=== PATIENT | female | born 1945 | race Caucasian/White ===

== ENCOUNTER 2020-09-29 15:38 | Outpatient (REF) | payer MEDICARE, SELFPAY ==
--- NOTE | 2020-09-29 | XR_ITS ---
EXAMINATION: XR FOOT, LEFT CLINICAL INFORMATION: Pain COMPARISON: None TECHNIQUE: AP, lateral, and oblique views of the left foot. FINDINGS: Bone alignment is normal. No fracture or dislocation is seen. The joint spaces are normal. There are small calcaneal spurs. XR/XR foot LT min 3V IMPRESSION: Small calcaneal spurs.
[2020-09-29 18:47] LABS: Alanine Aminotransferase 12 U/L (0-31); Albumin Level 4.5 g/dL (3.5-5.0); Alkaline Phosphatase 84 U/L (39-117); Anion Gap 17 (12-20); Aspartate Amino Transferase 18 U/L (5-31); Bilirubin Direct 0.7 mg/dL (0.0-0.5); Bilirubin Total 1.8 mg/dL (0.0-1.0); Blood Urea Nitrogen 21 mg/dL (9-16); Calcium 9.5 mg/dL (8.4-10.2); Carbon Dioxide 27 mmol/L (22-29); Chloride 101 mmol/L (96-108); Cholesterol 207 mg/dL; Estimated Glomerular Filt Rate 52; Glucose Random 100 mg/dL (60-115); HDL Cholesterol 60 mg/dL; LDL Cholesterol Calculated 124 mg/dl; Potassium 3.7 mmol/l (3.3-5.1); Sodium 141 mmol/L (135-145); Total Protein 7.2 g/dL (6.5-8.0); Triglycerides 116 mg/dL
[2020-09-29 19:09] LABS: Free T4 (Free Thyroxine) 1.42 ng/dL (0.71-1.85); Thyroid Stimulating Hormone 0.48 uIU/mL (0.32-4.0)
== END 2020-09-29 15:39 | disposition home or self-care (01) ==
LOC: HO.LAB 15:38
PROVIDERS: PCP Student in an Organized Health Care Education/Training Program; Visit Provider Student in an Organized Health Care Education/Training Program
DX: E03.9 Hypothyroidism, unspecified (principal); M79.672 Pain in left foot
CPT/HCPCS: 36415; 73630; 80048; 80061; 80076; 82306; 84439; 84443

== ENCOUNTER → 2020-12-04 14:35 | Outpatient (BNVA) | payer MEDICARE, SELFPAY | PROVIDERS: PCP Student in an Organized Health Care Education/Training Program; Visit Provider Internal Medicine Cardiovascular Disease | DX: Z01.810 Encounter for preprocedural cardiovascular examination (principal); R94.31 Abnormal electrocardiogram [ECG] [EKG] | CPT/HCPCS: 93005; 99202 ==

== ENCOUNTER → 2021-02-05 14:41 | Outpatient (REF) | payer MEDICARE, SELFPAY ==
--- NOTE | 2021-02-05 14:46 | CA_ITS ---
Transthoracic Echocardiogram Patient (Last, First, Middle): Yue Osei A Gender: Female Date of : 1945 Age: 75 Procedure Date: 02/05/2021 Procedure Type: Transthoracic Echocardiogram Location: OP Height: 160.02 cm Weight: 65.77 kg BSA: 1.69 m2 Heart Rate: bpm BP: 130 / 74 mmHg Import Customer Service Manager: TRN Referring MD: Mac Mera MD Symptoms: R94.31 - Abnormal electrocardiogram [ECG] [EKG] Study Quality: Technically Difficult ECG Rhythm: Sinus Conclusions: - Due to poor endocardial definition, difficult to assess LVEF. Possibly about 50%. - No obvious valvular pathology seen on this study. Findings Left Ventricle Normal left ventricular cavity size. There is normal left ventricular wall thickness. Regional wall motion abnormalities can not be excluded due to suboptimal endocardial definition. E/E prime ratio is <8, consistent with normal filling pressures. Evidence suggests grade I (mild) diastolic dysfunction. Due to poor endocardial definition, difficult to assess LVEF. Possibly about 50%. Right Ventricle Normal right ventricular cavity size and systolic function. Atria The left atrium is mildly dilated. The right atrium is normal in size. Aortic Valve There is a normal trileaflet aortic valve. There is no aortic valve stenosis. There is no aortic valve regurgitation. Mitral Valve There is mild mitral annular calcification. There is trace mitral valve regurgitation. There is no mitral valve stenosis. Pulmonic Valve The pulmonic valve was not well visualized. Tricuspid Valve Normal tricuspid valve structure. There is trace tricuspid valve regurgitation. The pulmonary artery systolic pressure is normal. Great Vessels The aortic annulus, sinuses of valsalva, and asc aorta are normal in size. Venous The inferior vena cava is normal in size and collapses greater than 50% with inspiration. Pericardium/Pleural There is no evidence of pericardial effusion. Prior Study Comparison No significant change compared to prior study dated: 12/06/2013. LVEF was similar. Recommendations, Care & Conclusions No obvious valvular pathology seen on this study. Measurements M-Mode Liner Measurements Normals - Women/Men AOV Cusps: 1.70 1.5-2.6 cm/m2 2D Linear Measurements IVSd: 0.88 0.6-0.9/0.6-1.0 cm LVIDd: 4.68 3.9-5.3/4.2-5.9 cm LVIDd Index: 2.77 2.4-3.2/2.2-3.1 cm/m2 LVIDs: 2.96 2.0-3.6 cm LVPWd: 0.89 0.7-1.1 cm Ao Root: 3.40 2.1-3.5 cm LA Diam: 2.60 2.7-3.8/3.0-4.0 cm LAIDs Index: 1.54 1.5-2.3 cm/m2 LV Mass: 172.47 67-162/88-224 g LV Mass Index: 102.05 43-95/49-115 g/m2 LVOT Diam: 2.20 3.0+(-)1.3 cm Mitral Valve MV Pk E: 0.53 MV PK A: 0.79 MV Decel Time: 273.00 E/A: 0.70 E'Lateral: 6.64 E'Medial: 5.11 E/E' Med: 10.30 E/E' Lat: 7.90 PHT: 80.00 MVA PHT: 2.75 Decel [place]: 1.93 Aortic Valve AoV Pk Dre: 1.36 AoV Mn Dre: 1.06 AoV VTI: 0.30 AoV Pk Grad: 7.00 Aov Mn Grad: 5.00 MARY Cont.VTI: 1.67 LVOT LVOT Pk Dre: 0.65 LVOT Mn Dre: 0.45 LVOT VTI: 0.13 LVOT Pk Grad: 2.00 LVOT Mn Grad: 1.00 LVOT Diam: 2.20 LVOT Area: 3.80 Diastolic Function MV Pk E: 0.53 MV Pk A: 0.79 E/A: 0.70 E'Medial: 5.11 E/E' Med: 10.30 E' Laterial: 6.64 E/E' Lat: 7.90 Tricuspid Valve TR Pk Dre: 1.87 TR Pk Grad: 14.00 RA Press: 3.00 RVSP: 17.00 Great Vessels Aorta Ao Root-2D: 3.40 2.0-3.7 cm Ao Asc: 3.60 2.1-3.4 cm Updated in Other Vendor System with Status of Final Raad Casiano MD electronically signed on 02/07/2021 11:57:54 AM with status of Final
== END ==
LOC: HO.CARD 14:41
PROVIDERS: PCP Student in an Organized Health Care Education/Training Program; Visit Provider Internal Medicine Cardiovascular Disease
DX: Z01.810 Encounter for preprocedural cardiovascular examination (principal); R94.31 Abnormal electrocardiogram [ECG] [EKG]
CPT/HCPCS: 93306

== ENCOUNTER 2023-02-17 10:48 | Outpatient (REF) | payer MEDICARE, SELFPAY ==
--- NOTE | ~2023-02-17 | XR_ITS ---
EXAMINATION: XR KNEE, LEFT CLINICAL INFORMATION: Pain COMPARISON: None available. TECHNIQUE: Two views of the left knee. FINDINGS: The bones are osteopenic. Bone alignment is normal. No fracture or dislocation. Arthritis at the patellofemoral joint. No significant joint effusion. XR/XR knee LT 2V IMPRESSION: Osteopenia and arthritis at the patellofemoral joint.
== END 2023-02-17 10:49 | disposition home or self-care (01) ==
LOC: HO.XRAY 10:48
PROVIDERS: PCP Student in an Organized Health Care Education/Training Program; Visit Provider Student in an Organized Health Care Education/Training Program
DX: M25.562 Pain in left knee (principal); G89.29 Other chronic pain
CPT/HCPCS: 73560

== ENCOUNTER 2023-08-23 10:39 | Outpatient (REF) | payer MEDICARE, SELFPAY ==
--- NOTE | ~2023-08-23 | XR_ITS ---
EXAMINATION: XR KNEE, LEFT CLINICAL INFORMATION: Pain. COMPARISON: Radiograph left knee 02/17/2023. TECHNIQUE: Two views of the left knee. FINDINGS: Decreased bone mineralization. No acute fractures or subluxation. Mild to moderate osteoarthritis of the medial and patellofemoral compartments with joint space narrowing and minimal subcortical sclerosis. No significant osteophytes. No chondrocalcinosis. No osseous erosions. No significant joint effusion. XR/XR knee LT 2V IMPRESSION: 1. No acute fractures or subluxation. 2. Mild to moderate osteoarthritis of the medial and patellofemoral compartments.
[2023-08-23 11:09] LABS: MANUAL DIFF FLAG NO
[2023-08-23 11:46] LABS: Basophils Percent Auto 0.6 % (0-2); Eosinophils Absolute Auto 0.4 X10*3/uL (0.0-0.4); Eosinophils Percent Auto 6.2 % (0-4); Hematocrit 36.1 % (37.0-47.0); Imm Gran Abs Auto 0.02 X10*3/uL (0.00-0.03); Imm Gran Pct Auto 0.3 % (0.0-0.4); Lymphocytes Absolute Auto 2.2 X10*3/uL (1.2-4.9); Lymphocytes Percent Auto 33.9 % (20-40); Mean Corpuscular HGB Conc 33.2 g/dl (31.0-35.0); Mean Corpuscular Hemoglobin 30.9 pg (27.0-33.0); Mean Platelet Volume 9.9 fL (9.4-12.3); Monocytes Absolute Auto 0.4 X10*3/uL (0.1-1.2); Monocytes Percent Auto 6.6 % (2-11); Neutrophils Absolute Auto 3.3 x10*3/uL (2.0-8.3); Neutrophils Percent Auto 52.4 % (45-73); Platelet Count 235 X10*3/uL (160-400); Red Blood Count 3.88 X10*6/uL (4.20-5.50); Red Cell Distribution Width 12.6 % (11.0-16.0); White Blood Count 6.3 X10*3/uL (4.8-10.8)
[2023-08-23 12:17] LABS: Alanine Aminotransferase 12 U/L (0-31); Albumin Level 4.2 g/dL (3.5-5.0); Alkaline Phosphatase 87 U/L (39-117); Anion Gap 11 (12-20); Aspartate Amino Transferase 22 U/L (5-31); Bilirubin Total 1.5 mg/dL (0.0-1.0); Blood Urea Nitrogen 16 mg/dL (9-16); C Reactive Protein < 0.10 mg/dL (< or = 0.50); Calcium 9.6 mg/dL (8.4-10.2); Carbon Dioxide 30 mmol/L (22-29); Chloride 104 mmol/L (96-108); Estimated Glomerular Filt Rate > 60; Glucose Random 94 mg/dL (60-115); Iron 57 mcg/dL (30-160); Percent Iron Saturation 26 % (15-50); Potassium 3.6 mmol/L (3.3-5.1); Sodium 141 mmol/L (135-145); Total Iron Binding Capacity 221 mcg/dL (228-428); Total Protein 7.1 g/dL (6.5-8.0); Unsaturated Iron Binding 164 ug/dL
[2023-08-23 12:24] LABS: Erythrocyte Sedimentation Rate 11 MM/HR (0-20)
[2023-08-23 12:36] LABS: Ferritin 213 ng/mL (10-250); TSH reflex Free T4 1.75 uIU/mL (0.32-4.0); Vitamin D 25-OH Total 62.3 ng/mL (>30)
[2023-08-23 12:44] LABS: Folate 17.2 ng/mL (> or = 4.0); Vitamin B12 612 pg/mL (200-900)
[2023-08-24 08:41] LABS: HIV AB/AG Nonreactive (Nonreactive); HIV Num 1 0.05 S/CO (0.00-0.99)
== END 2023-08-23 10:40 | disposition home or self-care (01) ==
LOC: HO.XRAY 10:39
PROVIDERS: PCP Student in an Organized Health Care Education/Training Program; Visit Provider Family Medicine
DX: M17.12 Unilateral primary osteoarthritis, left knee (principal); R53.83 Other fatigue
CPT/HCPCS: 36415; 73560; 80053; 82306; 82607; 82728; 82746; 83540; 84443; 85025; 85652; 86140; 87389

== ENCOUNTER 2023-09-26 10:45 | Outpatient (AMB) | payer MEDICARE, SELFPAY ==
--- NOTE | 2023-09-26 11:02 | A.OFFVIS_ITS ---
Intake Intake Visit Reasons: ALLERGIST-arthritis of left knee Intake Note: Yue is a 78 year old female who presents today as a new patient with complaints of left knee pain. Patient has had worsening left knee pain for quite some time now, her pain has impacted her daily activity. She has difficulty ambulating, uses a cane but needs further assistance. PCP note states that a script was sent for a wheeled walker, but patient has not heard from anyone for the walker yet. Allergies acetaminophen [From Percocet] Allergy (Mild, Unverified 05/29/20 16:11) NAUSEA oxycodone [From Percocet] Allergy (Mild, Unverified 05/29/20 16:11) NAUSEA HPI ALLERGIST-arthritis of left knee HPI Details Yue is a 78 year old woman who presents to discuss her left knee OA. She complains of pain with daily activity, which is limiting her function & ADLs. Her pain has been worsening for several months now. She walks using a cane but feels she needs further assistance. She takes Ibuprofen for pain relief, which is somewhat helpful. She has difficulty standing straight and cannot complete her ADLs. She is having a very hard time with all activities. She thinks it is her left knee but also has had complaints of left hip pain. [facility] Surgical History (Updated 12/04/20 @ 14:47 by TEAGAN Unger) History of ankle surgery Social History (Updated 12/04/20 @ 14:48 by TEAGAN Unger) Alcohol intake: current Alcohol type: hard liquor Review of Systems Const All systems reviewed & are unremarkable except as noted in HPI and below Physical Exam Const General: no acute distress, alert and awake Orientation/consciousness: patient oriented x3 HEENT Head: Yes normocephalic and Yes atraumatic Eyes EOM: EOMs intact bilaterally Resp Effort & Inspection: normal respiratory effort and able to speak in complete sentences Cardio Jugular venous distension: no JVD Skin General skin exam: turgor normal Rashes: no rashes Neuro General: patient oriented x3 Extrem Other: Left knee with mild medial compartment TTP unsteady gait She cannot stand straight and on exam her hip ROM is severely limited and attempts at internal rotation are painful Psych Appearance: grossly normal Affect: normal affect Attitude: cooperative Results Reviewed Results Reviewed: I personally reviewed relevant radiographs. Mild-moderate left knee varus pattern OA Severe bilateral hip OA Assessment & Plan Assessment & Plan (1) Arthritis of left knee: Code(s): M17.12 - Unilateral primary osteoarthritis, left knee (2) Bilateral hip joint arthritis: Code(s): M16.0 - Bilateral primary osteoarthritis of hip Plan: This is a 78 yo F with severe bilateral hip OA. She has some left knee pain as well but her primary problem is severe hip OA. This is limiting all her activity and her quality of life is adversely affected. The standard and reasonable treatment is hip replacement. I am not sure Yue is a reliable historian and it is difficult to accurately assess if she understands what I am recommending. Furthermore her medical history, at least what I can see in the chart, is limited. She had an EKG after a fall wityh an echo in 2020 but her chart is otherwise unhelpful. I will reach out to the [facility] and to her PCP. I think she would benefit tremendously from MAXIMUS but will need more clinical infomation prior to proceeding forward. In the meantime, we will work with her to get her a walker. Plan Scribed for Scooby Marina MD by Sky Jenkins, medical billing associate, on 09/26/23 at 11:10 AM, EST. Orders: Orders XR knee LT 2V 09/26/23 M25.569 - Pain in unspecified knee XR pelvis 1-2V 09/26/23 M25.559 - Pain in unspecified hip XR knee standing BI 09/26/23 M25.569 - Pain in unspecified knee Medications: New [front wheeled walker] As directed 1 ea 0RF Coding Level of Care Code New Pt Level 4 (22221) Diagnoses Arthritis of left knee M17.12 Bilateral hip joint arthritis M16.0
== END 2023-09-26 11:59 | disposition home or self-care (01) ==
PROVIDERS: PCP Student in an Organized Health Care Education/Training Program; Visit Provider Orthopaedic Surgery
DX: M17.12 Unilateral primary osteoarthritis, left knee (principal); M16.0 Bilateral primary osteoarthritis of hip
CPT/HCPCS: 99204

== ENCOUNTER 2023-09-26 11:24 | Outpatient (REF) | payer MEDICARE, SELFPAY ==
--- NOTE | ~2023-09-26 | XR_ITS ---
EXAMINATION: XR KNEE STANDING BILATERAL, XR KNEE, LEFT CLINICAL INFORMATION: Reason for Exam PAIN COMPARISON: Knee radiographs 08/23/2023 TECHNIQUE: 1 view of the bilateral knees standing and 2 views of the left knee FINDINGS: RIGHT KNEE: No acute fracture or dislocation. Ztlb-ew-fznzrmyd degenerative changes of the knee with borderline loss of medial compartment joint space. Question of a small 3 mm loose body in the medial compartment. Soft tissues are unremarkable. LEFT KNEE: No acute fracture or dislocation. Advanced osteoarthritis of the knee worst involving the patellofemoral compartment where there is complete loss of joint space. No joint effusion. Soft tissues are unremarkable. XR/XR knee LT 2V IMPRESSION: 1. Advanced osteoarthritis of the left knee worst involving the patellofemoral compartment where there is complete loss of joint space. 2. Nija-yc-xzmfjkoj degenerative changes of the right knee with borderline loss of medial compartment joint space. Question of a small 3 mm loose body in the medial compartment.
--- NOTE | ~2023-09-26 | XR_ITS ---
EXAMINATION: XR PELVIS CLINICAL INFORMATION: Hip pain COMPARISON: None available. TECHNIQUE: AP view of the pelvis. FINDINGS: Advanced bilateral osteoarthritis of the hips with obliteration of the joint space, sclerosis and subchondral cyst formation. There is femoral head remodeling, right greater than left. There is underlying demineralization. Degenerative changes lower lumbar spine. L5 pedicles are obscured. SI joints within normal limits. Mild fecal impaction. Phleboliths and vascular calcifications. XR/XR pelvis 1-2V IMPRESSION: Advanced bilateral hip degenerative type changes.
--- NOTE | ~2023-09-26 | XR_ITS ---
EXAMINATION: XR KNEE STANDING BILATERAL, XR KNEE, LEFT CLINICAL INFORMATION: Reason for Exam PAIN COMPARISON: Knee radiographs 08/23/2023 TECHNIQUE: 1 view of the bilateral knees standing and 2 views of the left knee FINDINGS: RIGHT KNEE: No acute fracture or dislocation. Qnok-jy-wnrjyrzu degenerative changes of the knee with borderline loss of medial compartment joint space. Question of a small 3 mm loose body in the medial compartment. Soft tissues are unremarkable. LEFT KNEE: No acute fracture or dislocation. Advanced osteoarthritis of the knee worst involving the patellofemoral compartment where there is complete loss of joint space. No joint effusion. Soft tissues are unremarkable. XR/XR knee standing BI IMPRESSION: 1. Advanced osteoarthritis of the left knee worst involving the patellofemoral compartment where there is complete loss of joint space. 2. Wicy-sc-sutnxmai degenerative changes of the right knee with borderline loss of medial compartment joint space. Question of a small 3 mm loose body in the medial compartment.
== END 2023-09-26 11:25 | disposition home or self-care (01) ==
LOC: HO.HOSX 11:24
PROVIDERS: Visit Provider Orthopaedic Surgery
DX: M17.12 Unilateral primary osteoarthritis, left knee (principal); M16.0 Bilateral primary osteoarthritis of hip
CPT/HCPCS: 72170; 73560; 73562; 73565; 99202

== ENCOUNTER → 2023-11-14 12:49 | Outpatient (BNVA) | payer MEDICARE, SELFPAY | PROVIDERS: PCP Student in an Organized Health Care Education/Training Program; Visit Provider Orthopaedic Surgery ==

== ENCOUNTER 2023-11-25 13:48 | Outpatient (AMB) | payer MEDICARE, SELFPAY ==
[2023-11-25 14:00] VITALS: BP 116/62; PULSE 83; BMI 24.6
--- NOTE | 2023-11-25 14:00 | A.OFFVIS_ITS ---
Intake Vital Signs 11/25/23 14:00 Height 5 ft 1 in Weight 130 lb BMI 24.6 BP 116/62 Blood Pressure Location Lt brachial Position Sitting Pulse 83 Pulse Source Monitor Intake Visit Reasons: Pre-op/L MAXIMUS with Dr. Marina 12/20 Intake Note: PT feels good PT is here Pre-op/L MAXIMUS Allergies acetaminophen [From Percocet] Allergy (Mild, Unverified 05/29/20 16:11) NAUSEA oxycodone [From Percocet] Allergy (Mild, Unverified 05/29/20 16:11) NAUSEA HPI HPI Comments History of Present Illness Details 78-year-old female presents today for a pre-op for a left MAXIMUS with Dr. Marina on 12/21/23. She denies any chest pains, shortness of breath, dizziness., palpitations. She is mostly sedentary as she walks with a walker and has been having knee/hip pain. [facility] Surgical History History of ankle surgery Social History Alcohol intake: current Alcohol type: hard liquor Review of Systems Const Denies weakness ENT Denies dizziness Card Denies chest pain, Denies chest pain with activity, Denies syncope, Denies rapid heart rate, Denies pedal edema, Denies edema, Denies leg edema, Denies lightheadedness, Denies palpitations, Denies dyspnea, Denies dyspnea on exertion and Denies orthopnea Resp Denies cough, Denies dyspnea and Denies dyspnea on exertion GI Denies hematochezia and Denies change in stool character Musc Denies abnormal gait, Denies muscle cramps, Denies muscle weakness, Denies numbness, Denies radiating pain into limb and Denies tingling Neuro Denies abnormal gait, Denies dizziness, Denies syncope, Denies numbness, Denies tingling and Denies weakness Endo Denies palpitations Physical Exam Vital Signs: Last Vital Signs Pulse 83 11/25/23 14:00 BP 116/62 11/25/23 14:00 BMI result Body Mass Index 24.6 Const General: healthy appearing and no acute distress Orientation/consciousness: patient oriented x3 Limitations: ambulation with walker HEENT Head: Yes normal to inspection Eyes General: appearance normal, both eyes and all related structures Neck Neck: Yes normal visual inspection Chest Chest palpation & inspection: normal inspection of the chest Resp Effort & Inspection: normal respiratory effort Auscultation: clear to auscultation bilaterally Cardio Jugular venous distension: no JVD Palpation: normal PMI Rate: regular rate Rhythm: regular rhythm Heart sounds: S1 normal heart sound present, S2 normal heart sound present, no click, no gallops, no murmurs and no rubs GI Inspection: Yes normal to inspection Palpation (GI): Soft to palpation Skin General skin exam: no rashes or lesions noted Neuro General: patient oriented x3 Extrem General: Yes normal to inspection Psych Appearance: grossly normal Office Procedures EKG Details: EKG today. Normal Sinus Rhythm. Low voltage QRS. Left anterior fascicular block. Possible anterolateral infarct, age undetermined. Rate 83 bpm. QRS 86ms. QTc 446ms. TX 190ms. [id number], Complete Assessment & Plan Assessment & Plan (1) Abnormal ECG: Code(s): R94.31 - Abnormal electrocardiogram [ECG] [EKG] (2) Preoperative cardiovascular examination: Code(s): Z01.810 - Encounter for preprocedural cardiovascular examination Plan Will send for echoardiogram and pharmacological stress test with imaging due to abnormal EKG - left anterior fascicular block, possible anteriorlateral infarct, poor R wave progression. Once testing is compelted will make addendum to note regarding pre-operative cardiac clearance. Orders: Orders CA echo transthoracic complete 11/25/23 R94.31 - Abnormal electrocardiogram [ECG] [EKG], Z01.810 - Encounter for preprocedural cardiovascular examination CA lexiscan stress w judi 11/25/23 R94.31 - Abnormal electrocardiogram [ECG] [EKG], Z01.810 - Encounter for preprocedural cardiovascular examination NM cardiolite stress test 11/25/23 R94.31 - Abnormal electrocardiogram [ECG] [EKG], Z01.810 - Encounter for preprocedural cardiovascular examination Coding Level of Care Code Est Pt Level 3 (71737) Diagnoses Abnormal ECG R94.31 Preoperative cardiovascular examination Z01.810 CPT Codes EKG - CPT: [id number], Complete ([id number])
== END 2023-11-25 14:48 | disposition home or self-care (01) ==
PROVIDERS: PCP Student in an Organized Health Care Education/Training Program; Visit Provider Nurse Practitioner
DX: R94.31 Abnormal electrocardiogram [ECG] [EKG] (principal); Z01.810 Encounter for preprocedural cardiovascular examination
CPT/HCPCS: 93010; 99213

== ENCOUNTER → 2023-11-25 13:48 | Outpatient (BNVA) | payer MEDICARE, SELFPAY | PROVIDERS: PCP Student in an Organized Health Care Education/Training Program; Visit Provider Nurse Practitioner | DX: Z01.810 Encounter for preprocedural cardiovascular examination (principal); M16.12 Unilateral primary osteoarthritis, left hip; R94.31 Abnormal electrocardiogram [ECG] [EKG]; I44.4 Left anterior fascicular block | CPT/HCPCS: 93005; 99212 ==

== ENCOUNTER → 2023-11-29 10:02 | Outpatient (REF) | payer MEDICARE, SELFPAY ==
--- NOTE | 2023-11-29 10:08 | CA_ITS ---
Transthoracic Echocardiogram Patient (Last, First, Middle): Yue Osei A Gender: Female Date of : 1945 Age: 78 Procedure Date: 11/29/2023 Procedure Type: Transthoracic Echocardiogram Location: OP Height: 154.94 cm Weight: 56.7 kg BSA: 1.55 m2 Heart Rate: bpm BP: 130 / 82 mmHg Bundle Sorter: LARRY Referring MD: Mahsa Leiva NP Symptoms: R94.31 - Abnormal electrocardiogram [ECG] [EKG] Study Quality: Adequate ECG Rhythm: Sinus Conclusions: - The left ventricular systolic function is normal. The calculated ejection fraction is 61% by biplane method. - No obvious valvular pathology seen on this study. - There is mild dilatation of the ascending aorta measuring 4.10 cm. Findings Left Ventricle Normal left ventricular cavity size. There is normal left ventricular wall thickness. The left ventricular systolic function is normal. The calculated ejection fraction is 61% by biplane method. There is no evidence of regional wall motion abnormalities. LV peak GLS -19.6%. Right Ventricle Normal right ventricular cavity size and systolic function. Atria Both atria are normal in size. Aortic Valve There is a normal trileaflet aortic valve. There is mild calcification of the aortic valve. There is no aortic valve stenosis. There is no aortic valve regurgitation. Mitral Valve There is mild mitral annular calcification. There is trace mitral valve regurgitation. There is no mitral valve stenosis. Pulmonic Valve The pulmonic valve is likely normal. There is trace pulmonic valve regurgitation. Tricuspid Valve There is trace tricuspid valve regurgitation. There is no evidence of pulmonary hypertension. Great Vessels There is mild dilatation of the ascending aorta measuring 4.10 cm. Venous The inferior vena cava is mildly dilated and collapses greater than 50% with inspiration. Pericardium/Pleural There is no evidence of pericardial effusion. Prior Study Comparison Changes noted compared to prior study dated: 02/05/2021. see comment on ascending aortic size. Recommendations, Care & Conclusions No obvious valvular pathology seen on this study. Measurements 2D Linear Measurements IVSd: 0.82 0.6-0.9/0.6-1.0 cm LVIDd: 4.40 3.9-5.3/4.2-5.9 cm LVIDd Index: 2.84 2.4-3.2/2.2-3.1 cm/m2 LVIDs: 3.01 2.0-3.6 cm LVPWd: 0.95 0.7-1.1 cm LA Diam: 2.90 2.7-3.8/3.0-4.0 cm LAIDs Index: 1.87 1.5-2.3 cm/m2 LV Mass: 155.57 67-162/88-224 g LV Mass Index: 100.37 43-95/49-115 g/m2 LVOT Diam: 2.30 3.0+(-)1.3 cm 2D Systolic Function EF 4C: 62.00 >55% EF 2C: 60.90 >55% EF BiP: 60.90 >55% Mitral Valve MV Pk E: 0.63 MV PK A: 0.70 MV Decel Time: 155.00 E/A: 0.90 E'Lateral: 6.42 E'Medial: 4.90 E/E' Med: 12.80 E/E' Lat: 9.80 PHT: 45.00 MVA PHT: 4.89 Decel [place]: 4.04 Aortic Valve AoV Pk Dre: 1.27 AoV Mn Dre: 0.81 AoV VTI: 0.27 AoV Pk Grad: 6.00 Aov Mn Grad: 3.00 MARY Cont.VTI: 2.21 LVOT LVOT Pk Dre: 0.69 LVOT Mn Dre: 0.40 LVOT VTI: 0.14 LVOT Pk Grad: 2.00 LVOT Mn Grad: 1.00 LVOT Diam: 2.30 LVOT Area: 4.15 Diastolic Function MV Pk E: 0.63 MV Pk A: 0.70 E/A: 0.90 E'Medial: 4.90 E/E' Med: 12.80 E' Laterial: 6.42 E/E' Lat: 9.80 Right Ventricle TAPSE (mm): 23.80 TVS' Dre: 13.50 Tricuspid Valve TR Pk Dre: 2.09 TR Pk Grad: 17.00 RA Press: 8.00 RVSP: 25.00 Great Vessels Aorta Sinus of Valsalva: 3.54 2.0-3.[address] [place]: 3.21 1.7-3.4 cm Ao Asc: 4.10 2.1-3.4 cm Updated in Other Vendor System with Status of Final Raad Casiano MD electronically signed on 11/30/2023 11:09:05 AM with status of Final
== END ==
LOC: HO.CARD 10:02
PROVIDERS: PCP Student in an Organized Health Care Education/Training Program; Visit Provider Nurse Practitioner
DX: Z01.810 Encounter for preprocedural cardiovascular examination (principal); R94.31 Abnormal electrocardiogram [ECG] [EKG]
CPT/HCPCS: 93306; 93356

== ENCOUNTER → 2023-11-29 10:08 | Outpatient (BNV) | payer MEDICARE, SELFPAY | PROVIDERS: PCP Student in an Organized Health Care Education/Training Program; Visit Provider Internal Medicine | DX: I77.810 Thoracic aortic ectasia (principal) | CPT/HCPCS: 93306; 93356 ==

== ENCOUNTER 2023-12-15 09:10 | Outpatient (REF) | payer MEDICARE, SELFPAY ==
--- NOTE | ~2023-12-15 | XR_ITS ---
EXAMINATION: XR HIP, LEFT, WITH AP PELVIS CLINICAL INFORMATION: Pain. COMPARISON: Prior radiographs dated 09/26/2023. TECHNIQUE: AP and frog-leg lateral views of the left hip are submitted, together with a frontal view of the pelvis. FINDINGS: There is bony demineralization. There is marked narrowing of the bilateral acetabular joint spaces, with subchondral sclerosis, subchondral cyst formation and peripheral osteophyte formation of the articular surfaces. There is flattening of the bilateral femoral heads, suggesting avascular necrosis. No dislocation is seen. The sacral iliac joints are symmetric and well-maintained. The pubic symphysis is intact. No foreign body is seen. XR/XR hip LT min 2V IMPRESSION: Marked degenerative changes are seen of the hips, there is flattening of the bilateral femoral heads suggesting avascular necrosis
== END 2023-12-15 09:11 | disposition home or self-care (01) ==
LOC: HO.HOSX 09:10
PROVIDERS: Visit Provider Physician Assistant
DX: M16.12 Unilateral primary osteoarthritis, left hip (principal)
CPT/HCPCS: 73502; 99212

== ENCOUNTER 2023-12-15 13:19 | Outpatient (AMB) | payer MEDICARE, SELFPAY ==
--- NOTE | 2023-12-15 13:42 | A.OFFVIS_ITS ---
Intake Intake Visit Reasons: pre-op left MAXIMUS 12/21/23 with NE Intake Note: Yue is a 78 year old female who presents today for a pre op appointment for her left TKA 12/21/23 NE. Allergies acetaminophen [From Percocet] Allergy (Mild, Verified 12/15/23 13:42) NAUSEA oxycodone [From Percocet] Allergy (Mild, Verified 12/15/23 13:42) NAUSEA HPI pre-op left MAXIMUS 12/21/23 with NE HPI Details 78-year-old female who presents in the o ffice today for her preoperative history and physical exam prior to a left total hip arthroplasty to be performed on 12/21/[address] Scooby Marina. Patient has an allergy history, as follows: -Acetaminophen; nausea -Oxycodone; Nausea Patient is currently taking, as follows: -Albuterol sulfate 90 mcg/actuation 2 pu ffs inhalation Q6H PRN -Calcium carbonate 600 mg PO bedtime -Calcium carbonate 200 mg PO BID PRN -Cholecalciferol 125 mcg PO bedtime -Hydrochlorothiazide 25 mg PO bedtime -Levothyroxine 50 mcg PO bedtime -Vitamin A, C, N-eqzp-joqrwk 2,148 mcg-1 13 mg-45 mg-17.4 mg 2 tabs PO BID Patient has a medical history, as follows: -GERD (gastroesophageal reflux disease) -Asthma -Thyroid disease -HTN (hypertension) Patient has a surgical history, as follows: -Hx of surgery on wrist; x2 -Hx of ankle surgery Patient has a social history, as follows: -Alcohol use: Occasional holidays, hard liquor PFSH Medical History (Updated 12/15/23 @ 13:53 by Monserrat Hollingsworth) Arthritis GERD (gastroesophageal reflux disease) Asthma Thyroid disease HTN (hypertension) Surgical History (Updated 12/13/23 @ 12:25 by Josseline Lloyd RN) History of surgery on wrist History of ankle surgery Social History Are you a primary director long term care to a significant other at home: No Do you presently have visiting nurse or other home services: No Alcohol intake: current Alcohol intake frequency: holidays/special occasions only Alcohol type: hard liquor Patient Tobacco Use Status: Never used Tobacco Review of Systems Const All systems reviewed & are unremarkable except as noted in HPI and below Physical Exam Const General: cooperative, healthy appearing and no acute distress Resp Effort & Inspection: normal respiratory effort and able to speak in complete sentences Cardio Rate: regular rate Peripheral pulses: Peripheral pulses 2+ throughout GI Palpation (GI): Soft to palpation Skin Lesions: no lesions Rashes: no rashes Extrem Other: Left hip: Skin is intact with no abrasions or lesions. Ambulating with the use of a walker. Pain and limited ROM with internal and external rotation. Assessment & Plan Assessment & Plan (1) Arthritis of left hip: Code(s): M16.12 - Unilateral primary osteoarthritis, left hip Plan Ms. Osei is a 78-year-old female who presents in the office today for her preoperative history and physical exam prior to a left total hip arthroplasty to be performed on 12/21/[address] Scooby Marina. Patient has an allergy history, as follows: -Acetaminophen; nausea -Oxycodone; Nausea Patient is currently taking, as follows: -Albuterol sulfate 90 mcg/actuation 2 puffs inhalation Q6H PRN -Calcium carbonate 600 mg PO bedtime -Calcium carbonate 200 mg PO BID PRN -Cholecalciferol 125 mcg PO bedtime -Hydrochlorothiazide 25 mg PO bedtime -Levothyroxine 50 mcg PO bedtime -Vitamin A, C, K-nrdf-snjdwt 2,148 mcg-113 mg-45 mg-17.4 mg 2 tabs PO BID Patient has a medical history, as follows: -GERD (gastroesophageal reflux disease) -Asthma -Thyroid disease -HTN (hypertension) Patient has a surgical history, as follows: -Hx of surgery on wrist; x2 -Hx of ankle surgery Patient has a social history, as follows: -Alcohol use: Occasional holidays, hard liquor I discussed in detail the procedure and what to expect pre and post operatively. We discussed the risks, benefits and alternatives to the surgery as well as the rehabilitation course. The risks; which include, but are not limited to infection, bleeding, nerve injury, ongoing pain, swelling, and stiffness, perioperative risk of injury to bones and soft tissues, and blood clots. I have answered all questions and with their understanding they have consented to move forward with a left total hip arthroplasty to be performed on 12/21/[address] Scooby Marina. Follow up will be at the post operative appointment on 01/05/2024 at 1:30 pm, or sooner if needed. X-rays of the left hip were obtained while in the office today for surgical planning. Orders: Orders XR hip LT min 2V 12/15/23 M25.559 - Pain in unspecified hip Medications: New [Raised toliet seat with commode] As directed 1 ea 0RF left total hip arthroplasty Patient Instructions: Scribed by Monserrat Hollingsworth medical records manager, for Geno Lima PA-C on 12/15/2023 at 1:26 pm, EST. Coding Level of Care Code Global (54973) Diagnoses Arthritis of left hip M16.12
== END 2023-12-15 14:30 | disposition home or self-care (01) ==
LOC: HO.HOS 13:19
PROVIDERS: PCP Student in an Organized Health Care Education/Training Program; Visit Provider Physician Assistant
DX: M16.12 Unilateral primary osteoarthritis, left hip (principal)
CPT/HCPCS: 99024

== ENCOUNTER → 2023-12-16 08:11 | Outpatient (REF) | payer MEDICARE, SELFPAY ==
--- NOTE | ~2023-12-16 | NM_ITS ---
Myocardial perfusion study Indication: Abnormal EKG with preoperative cardiovascular risk stratification Technique: The patient was brought in for a Lexiscan perfusion study on 12/16/2023. Patient performed low-level exercise and was injected 0.4 mg of Lexiscan intravenously. Within a minute of injection, 25 mCi of sestamibi was given intravenously. Images were obtained using the SPECT gamma camera interlaced with the gating device. Images were obtained in supine position. Resting perfusion study was performed on 12/19/2023. Patient was administered 25 mCi of sestamibi intravenously at rest. Images were then obtained in supine position. Images obtained with and without CT attenuation. Total DLP 105 mGy-cm Images were processed with the software and compared side to side in short axis, horizontal long axis and vertical long axis views. Findings: The stress perfusion study showed non attenuated images show some thinning of the apex of the LV myocardium. Remainder of the LV myocardium is normally perfused. Attenuation corrected images show mildly reduced uptake in the apex of the LV myocardium. The gated study shows normal LV systolic function with calculated LVEF of 69%. LV cavity is normal in size. The gated study shows normal systolic wall thickening and contraction of segments. Resting study shows no change in perfusion pattern compared to stress perfusion study. Gating at rest reveals normal systolic wall motion with ejection fraction at 70%. The findings are consistent with no clear reversible defect suggestive of ischemia. Apical defect most likely attenuation artifact and normal contraction of the apex suggestive of normal myocardial perfusion. NM/NM cardiolite stress test Impression: 1. Myocardial perfusion imaging study shows normal myocardial perfusion 2. Gated LVEF is 69% 3. Transient ischemic dilatation not present EKG is nondiagnostic for ischemia
--- NOTE | 2023-12-16 08:15 | CA_ITS ---
Acquisition Time: 2023-12-16 08:26:53 Total Exercise Time: 00:02:00 Test Indications: PREOP, ABN EKG Medications: Protocol: LEXISCAN Max HR: 090 BPM 63% of Pred: 142 BPM Max BP: 130/070 mmHG Max Work Load: 1.0 METS Pharmacological stress test with Lexiscan injection, while sitting and kicking her legs, without anginal symptoms, with isolated PVCs, with hypotensive and bradycardic response to injection, with nondiagnostic EKG for ischemia. In recovery she was treated with supine then trendelenburg position, passive leg kicking, IV fluid wide open and Aminophylline 75mg IVP to reverse Lexiscan. Symptom of presyncope and vital signs improved within a few minutes time. She was put in a sitting position and was given caffinated soda. BP and heart rate were normal range. She was recovered for 14 minutes and transported to nuclear med department in wheelchair. IV access left in place. Nuclear images pending. Test reviewed with Dr Alcantar. Referred By: Mahsa Leiva Overread By: GARY GONZALES
== END ==
LOC: HO.CARD 08:11
PROVIDERS: PCP Student in an Organized Health Care Education/Training Program; Visit Provider Nurse Practitioner
DX: Z01.810 Encounter for preprocedural cardiovascular examination (principal); R94.31 Abnormal electrocardiogram [ECG] [EKG]
CPT/HCPCS: 78452; 93017; A9500; J0280; J2785

== ENCOUNTER → 2023-12-16 08:15 | Outpatient (BNV) | payer MEDICARE, SELFPAY | PROVIDERS: PCP Student in an Organized Health Care Education/Training Program; Visit Provider Nurse Practitioner Family | DX: I49.3 Ventricular premature depolarization (principal) | CPT/HCPCS: 78452; 93016; 93018 ==

== ENCOUNTER 2023-12-21 09:13 | Inpatient (IN) | payer MEDICARE, SELFPAY ==
[2023-12-13 12:35] VITALS: BP 133/62; PULSE 81; RESP 18; O2SAT 99; BMI 22.7
--- NOTE | 2023-12-13 12:50 | HO.ANESPROP2 ---
Documented by User: Carla Velázquez NP 12/20/23 10:14 HPI - Anesthesia Eval Consult details Narrative: 78yo F for Left Hip Total Replacement Medically cleared Cardiac cleared No recent illness No CP/SOB GERD: Rare. Tums PRN Asthma: Stable. Rare use of albuterol PMFSH Active Problems Active Problems: All Active Problems (Updated 12/13/23 @ 12:24 by Josseline Lloyd, RN) Bilateral hip joint arthritis (Acute) Arthritis of left knee (Acute) Abnormal ECG (Acute) Preoperative cardiovascular examination (Acute) Past Medical History Medical History (Updated 12/15/23 @ 13:53 by Monserrat Hollingsworth) Arthritis GERD (gastroesophageal reflux disease) Asthma Thyroid disease HTN (hypertension) Family History Family history of problems with anesthesia: No Surgical History Surgical History (Updated 12/13/23 @ 12:25 by Josseline Lloyd RN) History of surgery on wrist History of ankle surgery History of Problems with Anesthesia: No Social History Social History Are you a primary certified social workers in health care to a significant other at home: No Do you presently have visiting nurse or other home services: No Alcohol intake: current Alcohol intake frequency: holidays/special occasions only Alcohol type: hard liquor Patient Tobacco Use Status: Never used Tobacco Use of substances other than those prescribed or required for medical reasons: No Have you been hit, kicked, punched, or otherwise hurt by someone within the past year? If so, by whom?: No Are you DNR?: No Advance Directives: No Advance Directives on File: No Recently lost weight without trying: No Eating poorly because of decreased appetite: No Nutrition Risks: No Nutritional Risk Patient : No : No Poor oral hygiene: Yes (full upper and lower dentures) Meds Allergies Allergy/AdvReac Type Severity Reaction Status Date / Time acetaminophen [From Percocet] Allergy Mild NAUSEA Verified 12/15/23 13:42 oxycodone [From Percocet] Allergy Mild NAUSEA Verified 12/21/23 09:46 regadenoson AdvReac Intermediate presyncope Verified 12/16/23 12:05 Home Medications ?Medication ?Instructions ?Recorded ?Confirmed ?Last Taken ?Type albuterol sulfate 90 mcg/actuation 2 puff inhalation Q6H PRN 12/04/20 12/13/2324 History aerosol inhaler (ProAir HFA) Shortness Of Breath Or Wheezing hydrochlorothiazide 25 mg tablet 25 mg PO BEDTIME 12/04/20 12/13/23 12/20/23 History levothyroxine 50 mcg tablet 50 mcg PO BEDTIME 12/04/20 12/13/23 12/20/23 History calcium carbonate 200 mg calcium 200 mg PO BID PRN Acid Reflux 12/13/23 12/13/23 12/13/23 History (500 mg) chewable tablet (Tums) calcium carbonate 600 mg calcium 600 mg PO BEDTIME 12/13/23 12/13/23 12/13/23 History (1,500 mg) tablet cholecalciferol (vitamin D3) 125 125 mcg PO BEDTIME 12/13/23 12/13/23 12/13/23 History mcg (5,000 unit) tablet (Vitamin D3) vitamins A,C,R-laim-qqrsel 2,148 2 tab PO BID 12/13/23 12/13/23 12/13/23 History mcg-113 mg-45 mg-17.4 mg tablet (PreserVision AREDS) Exam Height,Weight and Vital Signs: Height 5 ft 1 in Weight 54.431 kg Last Vital Signs Pulse 81 12/13/23 12:35 Resp 18 12/13/23 12:35 BP 133/62 12/13/23 12:35 Pulse Ox 99 12/13/23 12:35 O2 Del Method Room Air 12/13/23 12:35 Pertinent Lab Results Pertinent Lab Results: Laboratory Tests 08/23/23 11:05 WBC 6.3 Hgb 12.0 Hct 36.1 L Plt Count 235 Sodium 141 Potassium 3.6 Chloride 104 Carbon Dioxide 30 H BUN 16 Creatinine 0.81 Lab Results 12/13/23 12/13/23 Range/Units 12:50 13:25 Nasal Screen MRSA (PCR) NEGATIVE (Negative) Nasal S. aureus Screen POSITIVE A (Negative) Nasal MRSA/S.aureus Interp SEE NOTE Blood Type B Positive Antibody Screen NEGATIVE Narrative Narrative: EKG 11/2023 Normal Sinus Rhythm. Low voltage QRS. Left anterior fascicular block. Possible anterolateral infarct, age undetermined. Rate 83 bpm. QRS 86ms. QTc 446ms. IN 190ms. ECHO 11/2023 Conclusions: - The left ventricular systolic function is normal. The calculated ejection fraction is 61% by biplane method. - No obvious valvular pathology seen on this study. - There is mild dilatation of the ascending aorta measuring 4.10 cm. NM cardiolite stress test 12/2023 Impression: 1. Myocardial perfusion imaging study shows normal myocardial perfusion 2. Gated LVEF is 69% 3. Transient ischemic dilatation not present EKG is nondiagnostic for ischemia Airway Mallampati Class: II TM Dist: >3cm Neck ROM: Full Denture: Upper and Lower Heart: RRR Lungs: CTAB Assessment and Plan Assessment Anesthesia Assessment: Anesthesia Plan Discussed and PAT Visit Final Anesthetic Review Family History of Problems with Anesthesia: No History of Problems with Anesthesia: No Documented by User: Laxmi Mendez MD 12/21/23 10:12 [facility] Past Medical History Medical History (Updated 12/15/23 @ 13:53 by Monserrat Hollingsworth) Arthritis GERD (gastroesophageal reflux disease) Asthma Thyroid disease HTN (hypertension) Surgical History Surgical History (Updated 12/13/23 @ 12:25 by Josseline Lloyd RN) History of surgery on wrist History of ankle surgery Social History Social History Are you a primary certified social workers in health care to a significant other at home: No Do you presently have visiting nurse or other home services: No Alcohol intake: current Alcohol intake frequency: holidays/special occasions only Alcohol type: hard liquor Patient Tobacco Use Status: Never used Tobacco Use of substances other than those prescribed or required for medical reasons: No Have you been hit, kicked, punched, or otherwise hurt by someone within the past year? If so, by whom?: No Are you DNR?: No Advance Directives: No Advance Directives on File: No Recently lost weight without trying: No Eating poorly because of decreased appetite: No Nutrition Risks: No Nutritional Risk Patient : No : No Poor oral hygiene: Yes (full upper and lower dentures) Meds Allergies Allergy/AdvReac Type Severity Reaction Status Date / Time acetaminophen [From Percocet] Allergy Mild NAUSEA Verified 12/15/23 13:42 oxycodone [From Percocet] Allergy Mild NAUSEA Verified 12/21/23 09:46 regadenoson AdvReac Intermediate presyncope Verified 12/16/23 12:05 Home Medications ?Medication ?Instructions ?Recorded ?Confirmed ?Last Taken ?Type albuterol sulfate 90 mcg/actuation 2 puff inhalation Q6H PRN 12/04/20 12/13/23 09/19/23 History aerosol inhaler (ProAir HFA) Shortness Of Breath Or Wheezing hydrochlorothiazide 25 mg tablet 25 mg PO BEDTIME 12/04/20 12/13/23 12/20/23 History levothyroxine 50 mcg tablet 50 mcg PO BEDTIME 12/04/20 12/13/23 12/20/23 History calcium carbonate 200 mg calcium 200 mg PO BID PRN Acid Reflux 12/13/23 12/13/23 12/13/23 History (500 mg) chewable tablet (Tums) calcium carbonate 600 mg calcium 600 mg PO BEDTIME 12/13/23 12/13/23 12/13/23 History (1,500 mg) tablet cholecalciferol (vitamin D3) 125 125 mcg PO BEDTIME 12/13/23 12/13/23 12/13/23 History mcg (5,000 unit) tablet (Vitamin D3) vitamins A,C,Y-uijz-fgtqmu 2,148 2 tab PO BID 12/13/23 12/13/23 12/13/23 History mcg-113 mg-45 mg-17.4 mg tablet (PreserVision AREDS) Assessment and Plan Assessment Anesthesia Assessment: Chart Reviewed Final Anesthetic Review NPO: Yes ASA Class: III Final Preanesthetic Review: No Changes in Pt Med Stat, Meds/Allgs Chart Reviewed, Consent Obtained/Reviewed and Anes Risks/Benef Reviewed Patient Risk: Intermediate Procedure Risk: Intermediate Anesthetic Plan Anesthetic Plan: GA Disposition: Standard PACU
[2023-12-13 14:40] LABS: MRSA Nasal PCR NEGATIVE (Negative); SA Nasal PCR POSITIVE (Negative)
[2023-12-21] VITALS (13 sets, daily range): BP systolic 123–148; BP diastolic 57–71; PULSE 61–82; RESP 16–20; TEMP 36.1–36.6; O2SAT 95–100; BMI 22.7
--- NOTE | ~2023-12-21 | XR_ITS ---
EXAMINATION: XR PELVIS CLINICAL INFORMATION: Postop COMPARISON: 12/15/2023 TECHNIQUE: AP view of the pelvis. FINDINGS: Prosthetic components of the left total hip arthroplasty are appropriately aligned. A fracture through the greater trochanter is suggested on this single view. No other periprosthetic fracture. Gas from recent surgery is present in the surrounding soft tissues. XR/XR pelvis 1-2V IMPRESSION: 1. Appropriate alignment of the left total hip arthroplasty. 2. Fracture through the greater trochanter is suggested on this single view. When patient is stable recommend a fill left hip series.
--- NOTE | 2023-12-21 09:24 | PHA.MEDREC ---
Pharmacy Consult ? Medication Reconciliation Pharmacy has reviewed the medication reconciliation completed by nursing.
--- NOTE | 2023-12-21 09:51 | MHC.SHP ---
Pre-Procedural Eval Section A - 24 Hr Update-Section A only Date of Service: 12/21/23 The patient is an INPATIENT: No Changes since office visit: No Cold of Flu in the past 2 weeks, No New Medical Problems, No Changes in Medication and No Patient answered all questions The patient has been examined within 24 hours of the surgical procedure. The History & Physical has been completed within 30 days and I have reviewed it.: Yes Section B - Complete if H&P > 30 days Chief Complaint: LTHA Allergies: Allergies Allergy/AdvReac Type Severity Reaction Status Date / Time acetaminophen [From Percocet] Allergy Mild NAUSEA Verified 12/15/23 13:42 oxycodone [From Percocet] Allergy Mild NAUSEA Verified 12/21/23 09:46 regadenoson AdvReac Intermediate presyncope Verified 12/16/23 12:05 Plan I have reviewed the history and physical and performed a pertinent physical examination on my patient. No changes have occurred unless specified. Time Spent With Patient Time: Total time managing care of this patient today ____ minutes.
[2023-12-21] MEDS: Lactated Ringers 1,000 ML 100 ML IVCONT ×2 (10:01→15:52)
--- NOTE | 2023-12-21 10:06 | PC.NURSE ---
pt sts unable to take oxycodone severe n/v
--- NOTE | 2023-12-21 12:55 | PM.OP ---
Brief Operative Note Date of Service: 12/21/23 Pre-op diagnosis: Left hip OA Post-op diagnosis: same Procedure: Left MAXIMUS Implants: [employer] Trident 2 52 [place] Accolade 2 #4 132 deg with -2.5/36 femoral head Surgeon: Scooby Marina MD Anesthesia: GETA and local Was an Supervisor Cloth Winding used for this Procedure?: Yes Supervisor Cloth Winding: Geno Lima Estimated blood loss (mL): 200 IV fluids (mL): 1,000 Pathology: other Condition: stable Disposition: PACU
--- NOTE | 2023-12-21 15:22 | PM.IMHP ---
History of Present Illness Date of Service: 12/21/23 Attending physician on admission: Geno Lima Chief Complaint: medical managemnet 70-year-old female with history of mild intermittent asthma, hypothyroidism, hypertension admitted to orthopedic surgery for management of osteoarthritis of left hip s/p MAXIMUS with consult placed hospitalist service for medical management. Review of Systems Review of Systems: General: No fevers, malaise, unintentional weight loss HEENT: No blurred vision, diplopia. No sore throat, nasal congestion, rhinorrhea, sinus pain, ear pain Cardiovascular: No chest pain, palpitations, or leg edema Respiratory: No shortness of breath, wheezing, cough GI: No abdominal pain, nausea, vomiting, diarrhea, constipation, melena, hematochezia : No dysuria, hematuria, increased urinary frequency, decreased urinary output MSK: No myalgia, back pain. +left hip pain Neuro: No headaches, weakness, paresthesias Skin: No rashes or lesions [facility] Medical History Arthritis GERD (gastroesophageal reflux disease) Asthma Thyroid disease HTN (hypertension) Surgical History History of surgery on wrist History of ankle surgery Social History Household Members: Children Housing: House Are you a primary date night caregiver to a significant other at home: No Do you presently have visiting nurse or other home services: No Alcohol intake: current Alcohol intake frequency: holidays/special occasions only Alcohol type: hard liquor Patient Tobacco Use Status: Never used Tobacco Use of substances other than those prescribed or required for medical reasons: No Have you been hit, kicked, punched, or otherwise hurt by someone within the past year? If so, by whom?: No Do you feel safe in your current relationship?: No Current Relationship Is there a partner from a previous relationship who is making you feel unsafe now?: No Are you made to feel afraid or neglected: No Are you DNR?: No Advance Directives: No Advance Directives on File: No Do you have thoughts of harming others: None Do you have a plan to hurt others: No Plan Recently lost weight without trying: No Eating poorly because of decreased appetite: No Nutrition Risks: No Nutritional Risk Patient : No : No Poor oral hygiene: Yes (full upper and lower dentures) Meds Allergies Allergy/AdvReac Type Severity Reaction Status Date / Time acetaminophen [From Percocet] Allergy Mild NAUSEA Verified 12/15/23 13:42 oxycodone [From Percocet] Allergy Mild NAUSEA Verified 12/21/23 09:46 regadenoson AdvReac Intermediate presyncope Verified 12/16/23 12:05 Active Medications: Current Medications Acetaminophen (Acetaminophen 325 Mg Tablet) 650 mg PO Q6H PRN PRN Reason: Pain, Mild (Pain Scale 1-3) Albuterol Sulfate (Albuterol Sulfate (0.083%) 2.5 Mg/3 Ml Vial.Neb) 2.5 mg INHALE ONCE PRN PRN Reason: Shortness of Breath/Wheezing Albuterol Sulfate (Albuterol Sulfate 90 Mcg 8 Gm Inhaler) 2 puff INHALE RQ6H PRN PRN Reason: Shortness Of Breath Or Wheezing Aspirin (Aspirin 325 Mg Tablet) 325 mg PO BID [facility] Calcium Carbonate (Calcium Carbonate 500 Mg Tablet) 500 mg PO BEDTIME [facility] Calcium Carbonate (Calcium Carbonate 500 Mg Tablet) 250 mg PO BID PRN PRN Reason: Acid Reflux Celecoxib (Celecoxib 200 Mg Capsule) 200 mg PO BID [facility] Docusate Sodium (Docusate Sodium 100 Mg Capsule) 100 mg PO BID [facility] Hydrochlorothiazide (Hydrochlorothiazide 25 Mg Tablet) 25 mg PO BEDTIME [facility]; Protocol Hydromorphone HCl (Hydromorphone Hcl 0.5 Mg/0.5 Ml Syringe) 0.25 mg IVPUSH Q4H PRN; Protocol PRN Reason: Pain, Severe (Pain Scale 7-10) Lactated Ringer's (Lr) 1,000 mls @ 100 mls/hr IVCONT .Q10H [facility] Cefazolin Sodium/Dextrose (Ancef) 2 gm in 50 mls @ 100 mls/hr IV POSTOP ONE Stop: 12/21/23 18:19 Levothyroxine Sodium (Levothyroxine Sodium 50 Mcg Tablet) 50 mcg PO BEDTIME [facility] Multivitamins/Vitamin C (Multivitamin Tablet) 2 tab PO BID [facility] Ondansetron HCl (Ondansetron Hcl 4 Mg/2 Ml Vial) 4 mg IVPUSH ONCE PRN PRN Reason: Nausea and Vomiting Stop: 12/21/23 16:12 Ondansetron HCl (Ondansetron Hcl 4 Mg/2 Ml Vial) 4 mg IVPUSH Q8H PRN PRN Reason: Nausea and Vomiting Oxycodone HCl (Oxycodone Hcl Immed Release 5 Mg Tablet) 5 mg PO Q4H PRN PRN Reason: Pain, Moderate(Pain Scale 4-6) Oxycodone HCl (Oxycodone Hcl Er 10 Mg Tab.Er.12h) 10 mg PO BID [facility] Sodium Chloride (0.9 % Sodium Chloride Flush 3 Ml Syringe) 3 ml IVFLUSH QSHIFT [facility] Vitamin D (Cholecalciferol (Vitamin D3) 25 Mcg Tablet) 125 mcg PO BEDTIME [facility] Home Medications ?Medication ?Instructions ?Recorded ?Confirmed ?Last Taken ?Type albuterol sulfate 90 mcg/actuation 2 puff inhalation Q6H PRN 12/04/20 12/13/23 09/19/23 History aerosol inhaler (ProAir HFA) Shortness Of Breath Or Wheezing hydrochlorothiazide 25 mg tablet 25 mg PO BEDTIME 12/04/20 12/13/23 12/20/23 History levothyroxine 50 mcg tablet 50 mcg PO BEDTIME 12/04/20 12/13/23 12/20/23 History calcium carbonate 200 mg calcium 200 mg PO BID PRN Acid Reflux 12/13/23 12/13/23 12/13/23 History (500 mg) chewable tablet (Tums) calcium carbonate 600 mg calcium 600 mg PO BEDTIME 12/13/23 12/13/23 12/13/23 History (1,500 mg) tablet cholecalciferol (vitamin D3) 125 125 mcg PO BEDTIME 12/13/23 12/13/23 12/13/23 History mcg (5,000 unit) tablet (Vitamin D3) vitamins A,C,B-voof-cguirz 2,148 2 tab PO BID 12/13/23 12/13/23 12/13/23 History mcg-113 mg-45 mg-17.4 mg tablet (PreserVision AREDS) Physical Exam Vital Signs and Narrative: Vital Signs: Last Vital Signs Temp 97.6 F 12/21/23 14:30 Pulse 61 12/21/23 14:30 Resp 16 12/21/23 14:30 BP 146/66 H 12/21/23 14:30 Pulse Ox 97 12/21/23 14:30 O2 Del Method Room Air 12/21/23 14:30 BMI result Body Mass Index 22.7 Constitutional - Awake and Alert, No apparent distress Eyes - PERRLA, EOMI Cardiovascular - S1S2, RRR, No edema Respiratory - Normal lung expansion, Normal respiratory effort, No respiratory distress, CTA bilaterally Gastrointestinal - NT / ND; +BS; No rebound or guarding Extremities - no calf tenderness bilaterally, no swelling Skin - Warm/Dry Neurological - Alert & oriented x3 Psychological - Appropriate affect Assessment and Plan Plan 70-year-old female with history of mild intermittent asthma, hypothyroidism, hypertension admitted to orthopedic surgery for management of osteoarthritis of left hip s/p MAXIMUS with consult placed hospitalist service for medical management. #OA Left Hip s/p left MAXIMUS POD0 -plan per orthopedic surgery #HTN -
--- NOTE | 2023-12-21 15:43 | HO.PM.IMCN ---
History of Present Illness Data of Consult Service Date: 12/21/23 Requesting physician: Geno Lima Primary Care Provider: MD DIXON Murray Reason for consult: medical management 70-year-old female with history of mild intermittent asthma, hypothyroidism, hypertension admitted to orthopedic surgery for management of osteoarthritis of left hip s/p MAXIMUS with consult placed hospitalist service for medical management. The patient has no complaints at this time and reports pain is reasonably controlled. Denies etoh use, illicit drug use or cigarette smoking. Review of Systems Review of Systems: General: No fevers, malaise, unintentional weight loss HEENT: No blurred vision, diplopia. No sore throat, nasal congestion, rhinorrhea, sinus pain, ear pain Cardiovascular: No chest pain, palpitations, or leg edema Respiratory: No shortness of breath, wheezing, cough GI: No abdominal pain, nausea, vomiting, diarrhea, constipation, melena, hematochezia : No dysuria, hematuria, increased urinary frequency, decreased urinary output MSK: No myalgia, back pain Neuro: No headaches, weakness, paresthesias Skin: No rashes or lesions [facility] Medical History Arthritis GERD (gastroesophageal reflux disease) Asthma Thyroid disease HTN (hypertension) Surgical History History of surgery on wrist History of ankle surgery Social History Household Members: Children Housing: House Are you a primary small animal caretaker to a significant other at home: No Do you presently have visiting nurse or other home services: No Alcohol intake: current Alcohol intake frequency: holidays/special occasions only Alcohol type: hard liquor Patient Tobacco Use Status: Never used Tobacco Use of substances other than those prescribed or required for medical reasons: No Have you been hit, kicked, punched, or otherwise hurt by someone within the past year? If so, by whom?: No Do you feel safe in your current relationship?: No Current Relationship Is there a partner from a previous relationship who is making you feel unsafe now?: No Are you made to feel afraid or neglected: No Are you DNR?: No Advance Directives: No Advance Directives on File: No Do you have thoughts of harming others: None Do you have a plan to hurt others: No Plan Recently lost weight without trying: No Eating poorly because of decreased appetite: No Nutrition Risks: No Nutritional Risk Patient : No : No Poor oral hygiene: Yes (full upper and lower dentures) Meds Allergies Allergy/AdvReac Type Severity Reaction Status Date / Time acetaminophen [From Percocet] Allergy Mild NAUSEA Verified 12/15/23 13:42 oxycodone [From Percocet] Allergy Mild NAUSEA Verified 12/21/23 09:46 regadenoson AdvReac Intermediate presyncope Verified 12/16/23 12:05 Active Medications: Current Medications Acetaminophen (Acetaminophen 325 Mg Tablet) 650 mg PO Q6H PRN PRN Reason: Pain, Mild (Pain Scale 1-3) Albuterol Sulfate (Albuterol Sulfate (0.083%) 2.5 Mg/3 Ml Vial.Neb) 2.5 mg INHALE ONCE PRN PRN Reason: Shortness of Breath/Wheezing Albuterol Sulfate (Albuterol Sulfate 90 Mcg 8 Gm Inhaler) 2 puff INHALE RQ6H PRN PRN Reason: Shortness Of Breath Or Wheezing Aspirin (Aspirin 325 Mg Tablet) 325 mg PO BID [facility] Calcium Carbonate (Calcium Carbonate 500 Mg Tablet) 500 mg PO BEDTIME [facility] Calcium Carbonate (Calcium Carbonate 500 Mg Tablet) 250 mg PO BID PRN PRN Reason: Acid Reflux Celecoxib (Celecoxib 200 Mg Capsule) 200 mg PO BID [facility] Docusate Sodium (Docusate Sodium 100 Mg Capsule) 100 mg PO BID [facility] Hydrochlorothiazide (Hydrochlorothiazide 25 Mg Tablet) 25 mg PO BEDTIME [facility]; Protocol Hydromorphone HCl (Hydromorphone Hcl 0.5 Mg/0.5 Ml Syringe) 0.25 mg IVPUSH Q4H PRN; Protocol PRN Reason: Pain, Severe (Pain Scale 7-10) Lactated Ringer's (Lr) 1,000 mls @ 100 mls/hr IVCONT .Q10H [facility] Cefazolin Sodium/Dextrose (Ancef) 2 gm in 50 mls @ 100 mls/hr IV POSTOP ONE Stop: 12/21/23 18:19 Levothyroxine Sodium (Levothyroxine Sodium 50 Mcg Tablet) 50 mcg PO BEDTIME [facility] Multivitamins/Vitamin C (Multivitamin Tablet) 2 tab PO BID [facility] Ondansetron HCl (Ondansetron Hcl 4 Mg/2 Ml Vial) 4 mg IVPUSH ONCE PRN PRN Reason: Nausea and Vomiting Stop: 12/21/23 16:12 Ondansetron HCl (Ondansetron Hcl 4 Mg/2 Ml Vial) 4 mg IVPUSH Q8H PRN PRN Reason: Nausea and Vomiting Oxycodone HCl (Oxycodone Hcl Immed Release 5 Mg Tablet) 5 mg PO Q4H PRN PRN Reason: Pain, Moderate(Pain Scale 4-6) Oxycodone HCl (Oxycodone Hcl Er 10 Mg Tab.Er.12h) 10 mg PO BID [facility] Sodium Chloride (0.9 % Sodium Chloride Flush 3 Ml Syringe) 3 ml IVFLUSH QSHIFT [facility] Vitamin D (Cholecalciferol (Vitamin D3) 25 Mcg Tablet) 125 mcg PO BEDTIME [facility] Home Medications ?Medication ?Instructions ?Recorded ?Confirmed ?Last Taken ?Type albuterol sulfate 90 mcg/actuation 2 puff inhalation Q6H PRN 12/04/20 12/13/23 09/19/23 History aerosol inhaler (ProAir HFA) Shortness Of Breath Or Wheezing hydrochlorothiazide 25 mg tablet 25 mg PO BEDTIME 12/04/20 12/13/23 12/20/23 History levothyroxine 50 mcg tablet 50 mcg PO BEDTIME 12/04/20 12/13/23 12/20/23 History calcium carbonate 200 mg calcium 200 mg PO BID PRN Acid Reflux 12/13/23 12/13/23 12/13/23 History (500 mg) chewable tablet (Tums) calcium carbonate 600 mg calcium 600 mg PO BEDTIME 12/13/23 12/13/23 12/13/23 History (1,500 mg) tablet cholecalciferol (vitamin D3) 125 125 mcg PO BEDTIME 12/13/23 12/13/23 12/13/23 History mcg (5,000 unit) tablet (Vitamin D3) vitamins A,C,T-fahb-btgyqe 2,148 2 tab PO BID 12/13/23 12/13/23 12/13/23 History mcg-113 mg-45 mg-17.4 mg tablet (PreserVision AREDS) Physical Exam Vital Signs and Narrative: Vital Signs: Last Vital Signs Temp 97.6 F 12/21/23 15:26 Pulse 71 12/21/23 15:26 Resp 16 12/21/23 15:26 BP 123/60 12/21/23 15:26 Pulse Ox 99 12/21/23 15:26 O2 Del Method Room Air 12/21/23 15:26 BMI result Body Mass Index 22.7 Constitutional - Awake and Alert, No apparent distress Eyes - PERRLA, EOMI Cardiovascular - S1S2, RRR, No edema. 2+ pedal pulses Respiratory - Normal lung expansion, Normal respiratory effort, No respiratory distress, CTA bilaterally Gastrointestinal - NT / ND; +BS; No rebound or guarding Extremities - no calf tenderness bilaterally, no swelling Skin - Warm/Dry Neurological - Alert & oriented x3, sensation in tact Psychological - Appropriate affect Assessment and Plan (1) Arthritis of left hip: Status: Acute Plan 70-year-old female with history of mild intermittent asthma, hypothyroidism, hypertension admitted to orthopedic surgery for management of osteoarthritis of left hip s/p MAXIMUS with consult placed hospitalist service for medical management. #OA Left Hip s/p left MAXIMUS POD0 -plan per orthopedic surgery #HTN -bp reasonably controlled -recommend resuming hctz on discharge to prevent post op hypotension. If needed consider low dose beta blocked or amlodipine 5mg #Hypothyroidism -continue levothyroxine #Mild intermittent asthma -no acute exacerbation -albuterol prn Thank you for allowing me to participate in this consult. Signing off at this time. Please do not hesitate to call for further questions or for any acute medical issues
[2023-12-21] MEDS: 0.9 % Sodium Chloride Flush 3 ML SYRINGE IVFLUSH (15:53)
[2023-12-21] MEDS: ceFAZolin Sodium/Dextrose,Iso 2 GM/50 ML PIGGYBACK IV (17:05)
[2023-12-21] MEDS: hydroCHLOROthiazide 25 MG TABLET PO (20:10)
[2023-12-21] MEDS: Celecoxib 200 MG CAPSULE PO (20:10)
[2023-12-21] MEDS: Docusate Sodium 100 MG CAPSULE PO (20:10)
[2023-12-21] MEDS: Cholecalciferol (Vitamin D3) 25 MCG TABLET 125 MCG PO (20:10)
[2023-12-21] MEDS: Levothyroxine Sodium 50 MCG TABLET PO (20:10)
[2023-12-21] MEDS: Multivitamin TABLET 2 TAB PO (20:10)
[2023-12-21] MEDS: Acetaminophen 325 MG TABLET 650 MG PO (20:11)
[2023-12-22] VITALS (7 sets, daily range): BP systolic 100–143; BP diastolic 58–69; PULSE 76–94; RESP 16–20; TEMP 36.1–36.7; O2SAT 93–100
[2023-12-22] MEDS: Lactated Ringers 1,000 ML 100 ML IVCONT ×3 (01:53→22:28)
[2023-12-22 06:56] LABS: MANUAL DIFF FLAG NO
[2023-12-22 07:05] LABS: Basophils Percent Auto 0.3 % (0-2); Hematocrit 29.3 % (37.0-47.0); Hemoglobin 10.2 g/dl (12.0-16.0); Imm Gran Abs Auto 0.03 X10*3/uL (0.00-0.03); Imm Gran Pct Auto 0.4 % (0.0-0.4); Lymphocytes Absolute Auto 1.2 X10*3/uL (1.2-4.9); Lymphocytes Percent Auto 15.5 % (20-40); Mean Corpuscular HGB Conc 34.8 g/dl (31.0-35.0); Mean Corpuscular Hemoglobin 31.3 pg (27.0-33.0); Mean Corpuscular Volume 89.9 fL (80.0-98.0); Mean Platelet Volume 10.2 fL (9.4-12.3); Monocytes Absolute Auto 0.6 X10*3/uL (0.1-1.2); Monocytes Percent Auto 8.2 % (2-11); Neutrophils Absolute Auto 5.9 x10*3/uL (2.0-8.3); Neutrophils Percent Auto 75.6 % (45-73); Platelet Count 201 X10*3/uL (160-400); Red Blood Count 3.26 X10*6/uL (4.20-5.50); Red Cell Distribution Width 12.1 % (11.0-16.0); White Blood Count 7.9 X10*3/uL (4.8-10.8)
[2023-12-22 07:27] LABS: Anion Gap 11 (12-20); Blood Urea Nitrogen 10 mg/dL (9-16); Calcium 8.9 mg/dL (8.4-10.2); Carbon Dioxide 28 mmol/L (22-29); Chloride 100 mmol/L (96-108); Creatinine Clr Calc Pharmacy 48.5; Estimated Glomerular Filt Rate > 60; Glucose Fasting 133 mg/dL (60-99); Potassium 3.8 mmol/L (3.3-5.1); Sodium 135 mmol/L (135-145)
[2023-12-22] MEDS: Docusate Sodium 100 MG CAPSULE PO ×2 (08:01→19:43)
[2023-12-22] MEDS: Celecoxib 200 MG CAPSULE PO ×2 (08:01→19:42)
--- NOTE | 2023-12-22 08:05 | HO.POSTANES ---
Post Anesthesia Evaluation Post Anesthesia Evaluation Date of Service: 12/22/23 Vital Signs: Vital Signs Temp Pulse Resp BP Pulse Ox O2 Del Method 12/22/23 07:35 97.0 F 94 16 143/69 H 95 Room Air 12/22/23 03:05 97.8 F 76 16 141/63 H 93 Room Air Anesthesia: General Endotracheal-GETA Mental Status: Awake Pain Control: Satisfactory Nausea/Vomiting: None Hydration: Adequate Anesthesia-Related Issues: No Anes. Related Issues Comments: Patient states maybe passed out while on the commode ?yesterday/overnight. Feels ok this morning but has not beeon out of bed. VSS
--- NOTE | 2023-12-22 09:05 | PM.PNORT ---
Subjective Subjective Date of Service: 12/22/23 Interval history: POD1 s/p LTHA Patient is resting in bed comfortably No overnight events Pain is managed No additional complaints Physical Exam Vital Signs: Vital Signs: Last Vital Signs Temp 97.0 F 12/22/23 07:35 Pulse 94 12/22/23 08:29 Resp 16 12/22/23 07:35 BP 143/69 H 12/22/23 08:29 Pulse Ox 95 12/22/23 08:29 O2 Del Method Room Air 12/22/23 07:35 BMI result Body Mass Index 22.7 Const: General: cooperative, healthy appearing and no acute distress Resp: Effort & Inspection: normal respiratory effort and able to speak in complete sentences Cardio: Rate: regular rate Peripheral pulses: Peripheral pulses 2+ throughout GI: Palpation (GI): Soft to palpation Skin: Lesions: no lesions Rashes: no rashes Extrem: Other: left hip dressing is c/d/i. Able to dorsi/plantar flex. Calf is supple and nontender. Sensation intact. Pedal pulse intact. Procedures Date of Service Date of Service: 12/22/23 Progress Note: A&P Assessment and plan (1) S/P total left hip arthroplasty: Status: Acute Plan Continue pain mgmnt Begin ASA for dvt ppx begin PT/OT for LTHA Dispo planning-Pending PT eval, pain mgmnt Time Spent With Patient Time: Total time managing care of this patient today ____ minutes. Quality Stroke Does the patient have a stroke diagnosis?: No VTE Prior VTE?: No VTE Risk Level:: Medical - moderate - high VTE Device Contraindication: N/A - Device Ordered VTE Drug Contraindication: N/A - Med Ordered
[2023-12-22] MEDS: Aspirin 325 MG TABLET PO ×2 (12:35→19:42)
--- NOTE | 2023-12-22 16:06 | MHC.CM.PN ---
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 LIST OF AARP CONTRACTED FACILITIES PROVIDED TO PT SHE WILL DISCUSS OPTIONS WITH DAUGHTER THIS EVENING AND PROVIDE PREFERENCES IN THE MORNING CURRENTLY [facility] [place], [facility], AND [facility] ARE OFFERING BEDS PENDING INSURANCE AUTH
[2023-12-22] MEDS: hydroCHLOROthiazide 25 MG TABLET PO (19:41)
[2023-12-22] MEDS: Levothyroxine Sodium 50 MCG TABLET PO (19:42)
[2023-12-22] MEDS: Cholecalciferol (Vitamin D3) 25 MCG TABLET 125 MCG PO (19:42)
[2023-12-22] MEDS: Multivitamin TABLET 2 TAB PO (19:42)
[2023-12-22] MEDS: oxyCODONE HCl ER 10 MG TAB.ER.12H PO (19:42)
[2023-12-23 04:00] VITALS: BP 137/66; PULSE 96; RESP 18; TEMP 36.2; O2SAT 95
[2023-12-23] MEDS: Lactated Ringers 1,000 ML 100 ML IVCONT (06:14)
[2023-12-23 07:27] VITALS: BP 125/61; PULSE 86; RESP 18; TEMP 36.3; O2SAT 93
[2023-12-23 07:29] LABS: Anion Gap 11 (12-20); Blood Urea Nitrogen 15 mg/dL (9-16); Calcium 9.1 mg/dL (8.4-10.2); Carbon Dioxide 30 mmol/L (22-29); Chloride 100 mmol/L (96-108); Creatinine Clr Calc Pharmacy 47.3; Estimated Glomerular Filt Rate > 60; Glucose Fasting 105 mg/dL (60-99); Sodium 137 mmol/L (135-145)
--- NOTE | 2023-12-23 08:14 | PM.PNORT ---
Subjective Subjective Date of Service: 12/23/23 Interval history: POD2 s/p LTHA Patient is resting in bed comfortably No overnight events Pain is managed No additional complaints Physical Exam Vital Signs: Vital Signs: Last Vital Signs Temp 97.3 F 12/23/23 07:27 Pulse 86 12/23/23 07:27 Resp 18 12/23/23 07:27 BP 125/61 12/23/23 07:27 Pulse Ox 93 12/23/23 07:27 O2 Del Method Room Air 12/23/23 07:27 BMI result Body Mass Index 22.7 Const: General: cooperative, healthy appearing and no acute distress Resp: Effort & Inspection: normal respiratory effort and able to speak in complete sentences Cardio: Rate: regular rate Peripheral pulses: Peripheral pulses 2+ throughout GI: Palpation (GI): Soft to palpation Skin: Lesions: no lesions Rashes: no rashes Extrem: Other: left hip dressing is c/d/i. Able to dorsi/plantar flex. Calf is supple and nontender. Sensation intact. Pedal pulse intact. Procedures Date of Service Date of Service: 12/23/23 Progress Note: A&P Assessment and plan (1) S/P total left hip arthroplasty: Status: Acute Plan Continue pain mgmnt Continue ASA for dvt ppx Continue PT/OT for LTHA Dispo planning-Pending PT eval, pain mgmnt Time Spent With Patient Time: Total time managing care of this patient today ____ minutes. Quality Stroke Does the patient have a stroke diagnosis?: No VTE Prior VTE?: No VTE Risk Level:: Medical - moderate - high VTE Device Contraindication: N/A - Device Ordered VTE Drug Contraindication: N/A - Med Ordered
[2023-12-23] MEDS: Celecoxib 200 MG CAPSULE PO (08:23)
[2023-12-23] MEDS: Docusate Sodium 100 MG CAPSULE PO (08:23)
[2023-12-23] MEDS: Aspirin 325 MG TABLET PO (08:23)
[2023-12-23] MEDS: Multivitamin TABLET 2 TAB PO (08:25)
[2023-12-23 08:49] VITALS: BP 125/61; PULSE 86; O2SAT 93
[2023-12-23 08:50] LABS: Hematocrit 26.1 % (37.0-47.0); Hemoglobin 8.9 g/dl (12.0-16.0)
--- NOTE | 2023-12-23 12:32 | P.DS_ITS ---
DS: Providers Provider Date of Service: 12/23/23 Date of admission: 12/21/23 09:13 Primary care physician: Mi Mo MD Consults: 12/21/23 14:56 Consult to Hospitalist Routine Comment: Consulting Provider: Hospitalist Reason For Exam: Routine medical management DS: Diagnosis Discharge Diagnosis (1) S/P total left hip arthroplasty: Status: Acute DS: Summary Hospital Course Hospital Course: The patient underwent a successful left total hip arthroplasty on 12/21/23, was transferred to PACU and then to the floor to recover. During their stay, their vitals were stable, afebrile at 97.3 . Labs were unremarkable, H/H 8.9/26.1. POD 1 she was started on ASA twice a day for DVT ppx, they also received Physical Therapy services twice a day. Physical therapy should include gait training, core and lumbar strength, glute strength. Posterior precautions intact. WBAT. Prior to discharge, her dressing was changed, incision clean dry and intact, new Aquacel dressing applied. The Aquacel dressing should remain intact and dry at all times. Any concerns with the dressing, please contact orthopedic office. No showering. The plan is to be discharged Time Attestation Discharge Coordination Time (in mins): 30 Quality: Safe Use of Opioids Does Pt have an Active Cancer Diagnosis on the Problem List?: No Quality: Stroke Does the patient have a stroke diagnosis?: No Physical Exam Vital Signs: Vital Signs: Last Vital Signs Temp 97.3 F 12/23/23 07:27 Pulse 86 12/23/23 08:49 Resp 18 12/23/23 07:27 BP 125/61 12/23/23 08:49 Pulse Ox 93 12/23/23 08:49 O2 Del Method Room Air 12/23/23 07:27 BMI result Body Mass Index 22.7 DS: Data Data Completed and Pending Pending studies at discharge: Pending at discharge 12/21/23 12:39 Surgical [PTH] Routine Labs on day of discharge: Laboratory Results - last 24 hr 12/23/23 12/23/23 05:48 08:02 Hgb 8.9 L Hct 26.1 L Hold Purple Top SEE NOTE Sodium 137 Potassium 4.0 Chloride 100 Carbon Dioxide 30 H Anion Gap 11 L BUN 15 Creatinine 0.74 Estim Creat Clear Calc 47.3 Estimated GFR > 60 Fasting Glucose 105 H Calcium 9.1 Discharge Plan Discharge Anticipated Discharge Date/Time: 12/23/23 12:26 Patient Disposition: Xfer SNF Discharge Diagnosis: lt dwayne Referrals: [facility] [Other] - 1 Week Geno Lima 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 docusate sodium 100 mg Capsule 100 mg PO BID 14 Days Qty: 28 0RF celecoxib 200 mg Capsule 200 mg PO BID 30 Days Qty: 60 0RF aspirin 325 mg Tablet 325 mg PO BID 42 Days Qty: 84 0RF acetaminophen 325 mg Tablet 650 mg PO Q6H PRN (Reason: Pain, Mild (Pain Scale 1-3)) 30 Days Qty: 240 0RF Continued calcium carbonate 600 mg calcium (1,500 mg) Tablet 600 mg PO BEDTIME cholecalciferol (vitamin D3) [Vitamin D3] 125 mcg (5,000 unit) Tablet 125 mcg PO BEDTIME PreserVision AREDS 2,148 mcg-113 mg-45 mg-17.4mg Tablet 2 tab PO BID Rx Instructions: administer with AM and PM meals calcium carbonate [Tums] 200 mg calcium (500 mg) Tablet,Chewable 200 mg PO BID PRN (Reason: Acid Reflux) hydrochlorothiazide 25 mg tablet 25 mg PO BEDTIME levothyroxine 50 mcg tablet 50 mcg PO BEDTIME albuterol sulfate [ProAir HFA] 90 mcg/actuation HFA aerosol inhaler 2 puff inhalation Q6H PRN (Reason: Shortness Of Breath Or Wheezing) (DME) Raised toliet seat with commode See Rx Instructions .ROUTE .MEDSUPPLY Qty: 1 0RF Rx Instructions: As directed (DME) front wheeled walker See Rx Instructions .Route .MEDSUPPLY Qty: 1 0RF Rx Instructions: As directed Discharge Orders: Discharge Order (Routine); Ordered 12/23/23 Ordered By: Keo Stout Diet: Regular diet Activity on Discharge: Use cane or walker Stand Alone Forms: Patient Portal Discharge page Print Language: Singaporean Care Plan Goals: Restore function of joint Health Concerns: none Plan of Treatment: Physical Therapy Pain management DVT prophylaxis Assessment: * Physical Therapy for Total hip arthroplasty: wbat, posterior precautions, gait training, ROM, strength * Limit stair climbing * No showering, no tub bath-keep dressing clean, dry and intact * No driving x6 weeks * Continue Aspirin twice a day x 6 weeks * Follow up with [facility] Orth[facility]ics in 2 weeks: *
--- NOTE | 2023-12-23 12:33 | MHC.CM.PN ---
pt to be dcd today to [facility] pts fist choice she will be leaving at 3 rn asked to do nurse to nurse with [facility] called pts dgter t/m left re dc snow [place] [phone]
[2023-12-23] MEDS: Acetaminophen 325 MG TABLET 650 MG PO (13:14)
--- NOTE | 2023-12-23 13:54 | PC.NURSE ---
Attempted to call nurse to nurse report to Demi Guevara,was able to leave message only
[2023-12-23 14:39] VITALS: BP 125/61; PULSE 86; O2SAT 93
--- NOTE | 2023-12-24 12:07 | W.PM.OPN ---
Operative Note Operative Note Date of Service: 12/21/23 Narrative: Date of Service: 12/21/23 Pre-op diagnosis: Left hip OA Post-op diagnosis: same Procedure: Left MAXIMUS Implants: [place] Trident 2 52 Dale Accolade 2 #4 132 deg with -2.5/36 femoral head Surgeon: Scooby Marina MD Anesthesia: GETA and local Was an Pencils Washer used for this Procedure?: Yes Pencils Washer: Geno Lima Estimated blood loss (mL): 200 IV fluids (mL): 1,000 Pathology: other Condition: stable Disposition: PACU Procedure in detail: Patient was brought into the operating room and placed in the right lateral decubitus position. All bony prominences were well padded and the limb was prepped and draped in standard sterile fashion. A time-out was called to identify proper site procedure proper surgeon IV antibiotics and 1 g of transaxemic acid were administered. I began by making a curvilinear incision over the posterolateral aspect of the greater trochanter. Dissection was taken down to the tensor fascia which was incised in line with the incision and a Charnley retractor was placed. Cautery was used to maintain hemostasis. The hip was internally rotated and the external rotators were identified. The vessels were cauterized and a full-thickness capsular/external rotator layer was developed starting just proximal to the piriformis. This layer was tagged and a dull Hohmann retractor was placed underneath the neck in the hip was dislocated. A neck cut was made 1 cm proximal to the lesser trochanter and the head and neck were removed and measured 48mm on the back table. I then removed the labrum and cauterized the fovea. I started with a 44 reamer and medialized to the inner table. I sequentially reamed up to a size 52 and impacted a 52mm cup at 45 degrees of inclination and 25 degrees of version. I then placed a 20 deg posterior lipped liner and turned my attention to the femur. I identified the piriformis insertion and used this as a starting point for my jonel cutter. The medius tendon was protected with a Hibs retractor. A Charnley awl was inserted in the canal and a curved curette used to remove the lateral bone. I irrigated copiously. I then sequentially broached in the patient's natural version to a size 5 and placed my trial implants. I used a #4/132/-2.5 based on my pre-operative template. Using a trail head I took the hip through range of motion. I was satisfied with the stability. I removed all instrumentation and copiously irrigated. I placed my final femoral implant and again took the hip through range of motion and was satisfied with the stability and length. The final -2.5 implant was impacted in place and the hip reduced. There was a small piece of posterior greater trochanter that was unstable. This ded not affect the stability of the greater trochanter but I elected not to remove it as it was not displaced and involved < 20 % of the posterior portion and not in continuity with the abductor tendon. I then irrigated for 3 minutes with iodine and placed 1 g of local transaxemic acid. I performed a capsular closure with 2.0 fiberwire, Javier's fascia with 0 Vicryl, subcuticular with 2-0 Vicryl and the skin with jaylin. Patient was placed into a sterile dressing. Patient was extubated brought to the recovery room in stable condition. There were no known complications.
== END 2023-12-23 15:47 | disposition skilled nursing facility (03) | DRG 470 ==
LOC: HO.SSSA 09:37 → HO.S3 14:06
PROVIDERS: Orthopaedic Surgery; Admitting Provider Physician Assistant; PCP Student in an Organized Health Care Education/Training Program; Visit Provider Physician Assistant
PROC: 0SRB0J9 Replacement of Left Hip Joint with Synthetic Substitute, Cemented, Open Approach (ICD-10-PCS; CPT 27130; principal; 2023-12-21 12:40)
DX: M16.12 Unilateral primary osteoarthritis, left hip (principal); K21.9 Gastro-esophageal reflux disease without esophagitis; Z79.890 Hormone replacement therapy; Z79.899 Other long term (current) drug therapy
CPT/HCPCS: 36415; 72170; 80048; 85014; 85018; 85025; 86850; 86900; 86901; 87640; 87641; 88304; 88311; 97110; 97116; 97162; 97166; 97530; C1776; J0131; J0690; J2405; J2704; J2795; J3010; J7120

== ENCOUNTER → 2023-12-21 09:13 | Outpatient (BNV) | payer MEDICARE, SELFPAY | PROVIDERS: Admitting Provider Physician Assistant; PCP Student in an Organized Health Care Education/Training Program; Visit Provider Physician Assistant | DX: I10 Essential (primary) hypertension (principal); E03.9 Hypothyroidism, unspecified; J45.909 Unspecified asthma, uncomplicated; M16.12 Unilateral primary osteoarthritis, left hip | CPT/HCPCS: 99222 ==

== ENCOUNTER → 2023-12-21 09:13 | Outpatient (BNV) | payer MEDICARE, SELFPAY | PROVIDERS: Admitting Provider Physician Assistant; PCP Student in an Organized Health Care Education/Training Program; Visit Provider Orthopaedic Surgery | DX: Z47.1 Aftercare following joint replacement surgery (principal); Z96.642 Presence of left artificial hip joint | CPT/HCPCS: 27130; 99024 ==

== ENCOUNTER 2024-01-05 09:13 | Outpatient (REF) | payer MEDICARE, SELFPAY ==
--- NOTE | ~2024-01-05 | XR_ITS ---
EXAMINATION: XR PELVIS CLINICAL INFORMATION: Pain COMPARISON: 12/21/2023 TECHNIQUE: AP view of the pelvis. FINDINGS: Again noted are skin jaylin lateral to left hip, status post total hip arthroplasty. At the left hip, the femoral head prosthesis is well centered within the acetabular cup. Again noted is a mildly displaced fragment of the superior aspect of the greater trochanter. There is no abnormal lucency or fracture around the tip of the femoral stem. At the right hip, there is chronic severe loss of joint space, subarticular sclerosis, osteophytosis and cortical buttressing of the femoral neck. The flattening of the superolateral femoral head could represent chronic remodeling from the severe arthritis or sequela of osteonecrosis. The degenerated lumbar spine is partially included in [id number]. XR/XR pelvis 1-2V IMPRESSION: * Severe osteoarthritis of the right hip. * No evidence of loosening of components of the left total hip arthroplasty. * Again noted is a mildly displaced greater trochanteric fragment (as seen on 12/21/2023).
== END 2024-01-05 09:14 | disposition home or self-care (01) ==
LOC: HO.HOSX 09:13
PROVIDERS: Visit Provider Physician Assistant
DX: Z47.1 Aftercare following joint replacement surgery (principal); Z96.642 Presence of left artificial hip joint
CPT/HCPCS: 72170; 99212

== ENCOUNTER 2024-01-05 13:04 | Outpatient (AMB) | payer MEDICARE, SELFPAY ==
--- NOTE | 2024-01-05 13:11 | MHC.OFFVIS ---
Intake Visit Reasons: PO left MAXIMUS 12/21/23 with NE Intake Note: Yue is a 78 year old female who presents today for a post op appointment s/p left AMXIMUS 12/21/23 with NE. Patient reports she is feeling okay, She states she was in rehab for 2 weeks and she denies any pain at this time. She states she feels like she is no longer dragging her leg anymore. Allergies acetaminophen [From Percocet] Allergy (Mild, Verified 01/05/24 13:24) NAUSEA oxycodone [From Percocet] Allergy (Mild, Verified 01/05/24 13:24) NAUSEA regadenoson Adverse Reaction (Intermediate, Verified 01/05/24 13:24) presyncope HPI HPI PO left MAXIMUS 12/21/23 with NE: Details: 78-year-old female who presents in the office today 15 days status post left total hip arthroplasty, which was performed on 12/21/[address] Marina. While in the office today the patient reports she is feeling okay. She confirms that she has been in rehab for the past 2 weeks and denies having any pain at the time. She states that she feels like her left lower extremity is no longer dragging. [facility] Medical History Arthritis of left hip Arthritis GERD (gastroesophageal reflux disease) Asthma Thyroid disease HTN (hypertension) Surgical History (Updated 01/05/24 @ 13:30 by Monserrat Hollingsworth) S/P total left hip arthroplasty (12/21/23) History of surgery on wrist History of ankle surgery Social History Household Members: Children Housing: House Are you a primary team primary care physician to a significant other at home: No Do you presently have visiting nurse or other home services: No Alcohol intake: current Alcohol intake frequency: holidays/special occasions only Alcohol type: hard liquor Patient Tobacco Use Status: Never used Tobacco service: No Review of Systems Const All systems reviewed & are unremarkable except as noted in HPI and below Physical Exam Const General: cooperative, healthy appearing and no acute distress Resp Effort & Inspection: normal respiratory effort and able to speak in complete sentences Cardio Rate: regular rate Peripheral pulses: Peripheral pulses 2+ throughout GI Palpation (GI): Soft to palpation Skin Lesions: no lesions Rashes: no rashes Extrem Other: Left hip: Incision sit is clean, dry, and intact. Karan intact. No surrounding erythema or drainage. No signs of infection. Full ROM. NVI. Assessment & Plan Assessment & Plan (1) S/P total left hip arthroplasty: Onset Date: 12/21/23 Comment: NE Code(s): Z96.642 - Presence of left artificial hip joint Category: Surgical Plan Ms. Osei is a 78-year-old female who presents in the office today 15 days status post left total hip arthroplasty, which was performed on 12/21/[address] Marina. While in the office today the patient reports she is feeling okay. She confirms that she has been in rehab for the past 2 weeks and denies having any pain at the time. She states that she feels like her left lower extremity is no longer dragging. Wister removed; steri-stripes applied. Patient will transition to outpatient physical therapy. An order was placed today. Follow up will be in [address] Marina, or sooner if needed. X-rays of the left hip which were obtained while in the office today and were reviewed by me, Geno Lima PA-C, revealed intact orthopedic hardware with proper alignment. Current pain regiment: -Acetaminophen 650 mg PO Q6H PRN -Oxycodone 5 mg PO Q4H PRN Orders: Orders XR pelvis 1-2V Today M25.559 - Pain in unspecified hip PT Evaluation and Treatment Today Z96.642 - Presence of left artificial hip joint Patient Instructions: Scribed by Monserrat Hollingsworth medical claims analyst, for Geno Lima PA-C on 01/05/2024 at 1:08 pm, EST. Coding Level of Care Code Global (59497) Diagnoses S/P total left hip arthroplasty Z96.642
== END 2024-01-05 13:53 | disposition home or self-care (01) ==
PROVIDERS: PCP Student in an Organized Health Care Education/Training Program; Visit Provider Physician Assistant
DX: Z96.642 Presence of left artificial hip joint (principal)
CPT/HCPCS: 99024

== ENCOUNTER 2024-01-26 11:53 | Outpatient (REF) | payer MEDICARE, SELFPAY ==
--- NOTE | ~2024-01-26 | XR_ITS ---
EXAMINATION: XR PELVIS CLINICAL INFORMATION: Hip pain COMPARISON: X-ray pelvis on 01/05/2024 TECHNIQUE: AP view of the pelvis. FINDINGS: BONES: Bony structures are intact. Mixed sclerosis and subarticular cystic erosions are seen in the right acetabulum and right femoral head. There is flattening deformity of right femoral head. Left femoral greater trochanteric bone fragment is seen with marked superior displacement. There is no focal bone destruction or periosteal reaction seen. JOINTS: There is normal alignment of left total hip arthroplasty prostheses. SOFT TISSUE: Soft tissue is normal. No abnormal air collection is seen. XR/XR pelvis 1-2V IMPRESSION: 1. Unchanged Marked superior displacement of left femoral greater trochanteric bone fragment. 2. Unchanged Normal alignment of left total hip arthroplasty prostheses. 3. Unchanged severe right hip osteoarthritis and right femoral head flattening deformity. Underlying avascular necrosis of right femoral head cannot be excluded. 4. Interval removal of lateral left hip surgical skin jaylin.
== END 2024-01-26 11:54 | disposition home or self-care (01) ==
LOC: HO.HOSX 11:53
PROVIDERS: Visit Provider Orthopaedic Surgery
DX: Z47.1 Aftercare following joint replacement surgery (principal); Z96.642 Presence of left artificial hip joint
CPT/HCPCS: 72170; 99212

== ENCOUNTER 2024-01-26 12:57 | Outpatient (AMB) | payer MEDICARE, SELFPAY ==
--- NOTE | 2024-01-26 13:07 | A.OFFVIS_ITS ---
Vital Signs 01/26/24 13:08 Height 5 ft 4 in Weight 120 lb BMI 20.6 Intake Visit Reasons: 6 wk PO left MAXIMUS 12/21/23 with NE Intake Note: Yue is a 78 year old female who presents today for a post op appointment s/p left MAXIMUS 12/21/23 with NE. Patient reports that she is doing well, she gets some cramps in the lower leg. She was told that the right leg is shorter than the left so she is asking if she needs a shoe lift. Allergies acetaminophen [From Percocet] Allergy (Mild, Verified 01/26/24 13:10) NAUSEA oxycodone [From Percocet] Allergy (Mild, Verified 01/26/24 13:10) NAUSEA regadenoson Adverse Reaction (Intermediate, Verified 01/26/24 13:10) presyncope HPI HPI 6 wk PO left MAXIMUS 12/21/23 with NE: Details: Yue is 6 weeks status post left hip arthroplasty. She reports doing well. She reports walking with a walker. She denies pain. [facility] Medical History Arthritis of left hip Arthritis GERD (gastroesophageal reflux disease) Asthma Thyroid disease HTN (hypertension) Surgical History (Updated 01/05/24 @ 13:30 by Monserrat Hollingsworth) S/P total left hip arthroplasty (12/21/23) History of surgery on wrist History of ankle surgery Social History Household Members: Children Housing: House Are you a primary home care scheduler to a significant other at home: No Do you presently have visiting nurse or other home services: No Alcohol intake: current Alcohol intake frequency: holidays/special occasions only Alcohol type: hard liquor Patient Tobacco Use Status: Never used Tobacco service: No Physical Exam Vital Signs: BMI result Body Mass Index 20.6 Extrem Other: Incision clean dry and intact Walking comfortably with a walker with a positive Trendelenburg gait on the left Results Reviewed Results Reviewed: I personally reviewed relevant radiographs. Radiographs demonstrate left MAXIMUS in expected post operative position with no hardware complications or evidence of loosening. There is a partial avulsion of the greater trochanter. Assessment & Plan Assessment & Plan (1) S/P total left hip arthroplasty: Onset Date: 12/21/23 Comment: NE Code(s): Z96.642 - Presence of left artificial hip joint Category: Surgical Plan: Six weeks status post left hip arthroplasty. She has poor bone quality and her greater trochanter is partially avulsed. She is walking comfortably and I recommend she continue to walk with a walker and follow up in 6 weeks. Orders: Orders XR pelvis 1-2V 01/26/24 M25.559 - Pain in unspecified hip Coding Level of Care Code Global (44038) Diagnoses S/P total left hip arthroplasty Z96.642
[2024-01-26 13:08] VITALS: BMI 20.6
== END 2024-01-26 13:25 | disposition home or self-care (01) ==
PROVIDERS: PCP Student in an Organized Health Care Education/Training Program; Visit Provider Orthopaedic Surgery
DX: Z96.642 Presence of left artificial hip joint (principal)
CPT/HCPCS: 99024

== ENCOUNTER 2024-03-12 12:59 | Outpatient (AMB) | payer MEDICARE, SELFPAY ==
--- NOTE | 2024-03-12 13:04 | A.OFFVIS_ITS ---
Vital Signs 03/12/24 13:07 Height 5 ft 4 in Weight 120 lb BMI 20.6 Intake Visit Reasons: 6 wk PO left MAXIMUS 12/21/23 with NE Intake Note: Yue is a 79 year old female who presents today with a walker post operatively s/p left MAXIMUS 12/21/23 with NE. Patient reports she is doing okay, she is now having concerns about right leg pain. Allergies acetaminophen [From Percocet] Allergy (Mild, Verified 03/12/24 13:07) NAUSEA oxycodone [From Percocet] Allergy (Mild, Verified 03/12/24 13:07) NAUSEA regadenoson Adverse Reaction (Intermediate, Verified 03/12/24 13:07) presyncope HPI HPI 6 wk PO left MAXIMUS 12/21/23 with NE: Details: Yue is a 79 year old female who presents today with a walker post operatively s/p left MAXIMUS 12/21/23 with NE. Patient reports she is doing okay, she is now having concerns about right leg pain. [facility] Medical History Arthritis of left hip Arthritis GERD (gastroesophageal reflux disease) Asthma Thyroid disease HTN (hypertension) Surgical History S/P total left hip arthroplasty (12/21/23) History of surgery on wrist History of ankle surgery Social History Household Members: Children Housing: House Are you a primary senior care specialist to a significant other at home: No Do you presently have visiting nurse or other home services: No Alcohol intake: current Alcohol intake frequency: holidays/special occasions only Alcohol type: hard liquor Patient Tobacco Use Status: Never used Tobacco service: No Physical Exam Vital Signs: BMI result Body Mass Index 20.6 Extrem Other: walking comfortably with walker. Mild trendelenberg gait. Right hip is painful when ambulating No left hip pain with ROM Right hip with painful impingement test Results Reviewed Results Reviewed: Left MAXIMUS in expected post operative position with no hardware complications or evidence of loosening. There is persistent fracture of greater trochanter that is displaced. Assessment & Plan Assessment & Plan (1) S/P total left hip arthroplasty: Onset Date: 04/10/24 Comment: NE Code(s): Z96.642 - Presence of left artificial hip joint Category: Medical Plan: Yue iu]s doing well. I explained to her the greater trochanter fracture and I do not think it is reasonable to try to repair this. I do not expect her to walk without a walker and her bone quality is very poor. She is walking well without pain and I think this is acceptable. She is concerned about her right leg but I would wait at least an additional 3 months before making a decision. She does have severe right hip OA but it is not to the point that her left was in that she is able to use it. I discussed this with her and she expressed understanding. Coding Level of Care Code Global (52054) Diagnoses S/P total left hip arthroplasty Z96.642
[2024-03-12 13:07] VITALS: BMI 20.6
== END 2024-03-12 13:32 | disposition home or self-care (01) ==
PROVIDERS: PCP Student in an Organized Health Care Education/Training Program; Visit Provider Orthopaedic Surgery
DX: Z96.642 Presence of left artificial hip joint (principal)
CPT/HCPCS: 99024

== ENCOUNTER → 2024-03-12 12:59 | Outpatient (BNVA) | payer MEDICARE, SELFPAY | PROVIDERS: PCP Student in an Organized Health Care Education/Training Program; Visit Provider Orthopaedic Surgery | DX: M16.11 Unilateral primary osteoarthritis, right hip (principal); M79.604 Pain in right leg; Z96.642 Presence of left artificial hip joint | CPT/HCPCS: 99212 ==

== ENCOUNTER 2024-04-17 11:42 | Outpatient (REF) | payer MEDICARE, SELFPAY ==
[2024-04-17 14:35] LABS: Alanine Aminotransferase 14 U/L (0-31); Albumin Level 3.9 g/dL (3.5-5.0); Alkaline Phosphatase 102 U/L (39-117); Anion Gap 14 (12-20); Aspartate Amino Transferase 21 U/L (5-31); Bilirubin Direct 0.3 mg/dL (0.0-0.5); Blood Urea Nitrogen 21 mg/dL (9-16); Calcium 9.6 mg/dL (8.4-10.2); Carbon Dioxide 30 mmol/L (22-29); Chloride 102 mmol/L (96-108); Cholesterol 198 mg/dL (<200); Estimated Glomerular Filt Rate > 60; Glucose Random 99 mg/dL (60-115); HDL Cholesterol 56 mg/dL (>40); LDL Cholesterol Calculated 118 mg/dL (<100); Potassium 3.9 mmol/L (3.3-5.1); Sodium 142 mmol/L (135-145); Total Protein 6.9 g/dL (6.5-8.0); Triglycerides 120 mg/dL (<150)
[2024-04-17 14:42] LABS: TSH reflex Free T4 1.61 uIU/mL (0.32-4.0)
== END 2024-04-17 11:43 | disposition home or self-care (01) ==
LOC: HO.CHCLDS 11:42
PROVIDERS: Visit Provider Student in an Organized Health Care Education/Training Program
DX: I10 Essential (primary) hypertension (principal); E03.9 Hypothyroidism, unspecified
CPT/HCPCS: 36415; 80048; 80061; 80076; 84443

== ENCOUNTER 2024-06-14 12:59 | Outpatient (REF) | payer MEDICARE, SELFPAY | END 2024-06-14 13:00 | disposition home or self-care (01) | LOC: HO.HOSX 12:59 | PROVIDERS: PCP Student in an Organized Health Care Education/Training Program; Visit Provider Orthopaedic Surgery | DX: M25.559 Pain in unspecified hip (principal); Z96.642 Presence of left artificial hip joint; M16.11 Unilateral primary osteoarthritis, right hip | CPT/HCPCS: 72170; 99212 ==

== ENCOUNTER 2024-06-14 12:59 | Outpatient (AMB) | payer MEDICARE, SELFPAY ==
--- NOTE | 2024-06-14 13:24 | MHC.OFFVIS ---
Vital Signs 06/14/24 13:27 Height 5 ft 4 in Weight 120 lb BMI 20.6 Intake Visit Reasons: OV-left MAXIMUS 12/21/23 with NE Intake Note: Yue is a 79 year old female who presents today for a follow up of her left hip s/p Left MAXIMUS 12/21/23. Patient does have a greater trochanteric fracture, as her bone quality is very poor. It was discussed that she should be ambulating with a walker. Patient reports that she has continued discomfort in the leg and has been using a lift in her shoe Allergies acetaminophen [From Percocet] Allergy (Mild, Verified 03/12/24 13:07) NAUSEA oxycodone [From Percocet] Allergy (Mild, Verified 03/12/24 13:07) NAUSEA regadenoson Adverse Reaction (Intermediate, Verified 03/12/24 13:07) presyncope HPI HPI OV-left MAXIMUS 12/21/23 with NE: Details: Yue is a 79-year-old woman who presented to me initially with severe bilateral hip osteoarthritis and could barely walk. She underwent a left hip replacement in December and did fairly well. She had a small partial abductor avulsion which did not seem to limit her and now she is walking pretty well with a walker although she continues to complain of severe right hip pain. [facility] Medical History Arthritis of left hip Arthritis GERD (gastroesophageal reflux disease) Asthma Thyroid disease HTN (hypertension) Surgical History S/P total left hip arthroplasty (12/21/23) History of surgery on wrist History of ankle surgery Social History Household Members: Children Housing: House Are you a primary career development director to a significant other at home: No Do you presently have visiting nurse or other home services: No Alcohol intake: current Alcohol intake frequency: holidays/special occasions only Alcohol type: hard liquor Patient Tobacco Use Status: Never used Tobacco service: No Physical Exam Vital Signs: BMI result Body Mass Index 20.6 Extrem Other: She walks comfortably in upright with a walker. She can walk without it but limps on the right significantly. She has no pain with passive or active left hip range of motion. There is minimal internal rotation on the right with a markedly positive impingement test and a fixed external rotation deformity. Results Reviewed Results Reviewed: On plain radiographs so left total hip and expected postoperative alignment. There is a partial have DrRossy Avulsion fracture on the left. Assessment & Plan Assessment & Plan (1) S/P total left hip arthroplasty: Onset Date: 12/21/23 Comment: NE Code(s): Z96.642 - Presence of left artificial hip joint Category: Surgical Plan: Yue is doing well status post left hip arthroplasty. (2) Osteoarthritis of right hip: Code(s): M16.11 - Unilateral primary osteoarthritis, right hip Category: Medical Plan: Yue has severe right hip are osteoarthritis. She feels that the pain is not tolerable and would like to proceed forward with right hip replacement. She states the recovery from the last surgery was okay even though, in my opinion, there was some difficulty with the quality of her bone. She has done well however and she is suffering. I think she is a reasonable candidate for right hip replacement. She looked much worse prior to her left hip replacement as she was not ambulating and now she is alert and interactive in a way that she was not prior to her 1st surgery. In addition she is walking pretty well except for the right hip pain. I discussed this with her. I discussed the risks benefits and alternatives. I will have our nurse navigator reach out and continue the process for potential surgery in 2024. Orders: Orders XR pelvis 1-2V 06/14/24 M25.559 - Pain in unspecified hip Coding Level of Care Code Est Pt Level 4 (21807) Diagnoses S/P total left hip arthroplasty Z96.642 Osteoarthritis of right hip M16.11
[2024-06-14 13:27] VITALS: BMI 20.6
== END 2024-06-14 13:55 | disposition home or self-care (01) ==
PROVIDERS: PCP Student in an Organized Health Care Education/Training Program; Visit Provider Orthopaedic Surgery
DX: M16.11 Unilateral primary osteoarthritis, right hip (principal); Z96.642 Presence of left artificial hip joint
CPT/HCPCS: 99214

== ENCOUNTER → 2024-08-20 10:42 | Outpatient (BNVA) | payer MEDICARE, SELFPAY | PROVIDERS: PCP Student in an Organized Health Care Education/Training Program | DX: Z01.810 Encounter for preprocedural cardiovascular examination (principal); I10 Essential (primary) hypertension | CPT/HCPCS: 93005; 99212 ==

== ENCOUNTER 2024-08-20 14:27 | Outpatient (AMB) | payer MEDICARE, SELFPAY ==
[2024-08-20 14:42] VITALS: BP 110/60; PULSE 97; BMI 21.6
--- NOTE | 2024-08-20 14:42 | A.OFFVIS_ITS ---
Vital Signs 08/20/24 14:42 Height 5 ft 4 in Weight 125 lb 10.616 oz BMI 21.6 BP 110/60 Blood Pressure Location Lt brachial Position Sitting Pulse 97 Pulse Source Monitor Intake Visit Reasons: Maura simpson/Dr. Marina 10/03/24 Intake Note: Maura simpson? Dr Marina 10/03/24/ Clearance Multimedia Journalist Required: No Accompanied by: Self / Same As Patient Allergies acetaminophen [From Percocet] Allergy (Mild, Verified 08/20/24 11:06) NAUSEA regadenoson Adverse Reaction (Intermediate, Verified 03/12/24 13:07) presyncope Medication List - Last Reconciled 08/20/24 by Mac Mera MD acetaminophen 650 mg (2 x 325 mg) PO Q6H PRN 30 days albuterol sulfate 90 mcg/actuation (ProAir HFA) 2 puffs inhalation Q6H PRN aspirin 325 mg PO BID 42 days calcium carbonate 600 mg PO BEDTIME calcium carbonate (Tums) 200 mg PO BID PRN celecoxib 200 mg PO DAILY cholecalciferol (vitamin D3) (Vitamin D3) 125 mcg PO BEDTIME docusate sodium 100 mg PO BID 14 days [front wheeled walker As directed] hydrochlorothiazide 25 mg PO BEDTIME levothyroxine 50 mcg PO BEDTIME [Raised toliet seat with commode As directed] vitamins A,C,K-zveg-djpzmw 2,148 mcg-113 mg-45 mg-17.4mg (PreserVision AREDS) 2 tabs PO BID walker Folding front wheeled walker HPI Comments Details: 79-year-old female who is referred to us for perioperative cardiovascular risk assessment for cataract surgery. She has an abnormal EKG showing in left axis deviation and poor R-wave progression and concern for anterior infarct in the past. Discussing with her she has no symptoms. She is not very active but denies chest pain or shortness of breath while she is doing activities at home. She has hypertension and has been taking hydrochlorothiazide. Blood pressure control is reasonable. No other concerns right now. She does not recall having any old myocardial infarction. 08/20/2024: She returns for follow-up. She is in need of hip replacement. EKG in the office is showing sinus rhythm with premature atrial complexes, inferior infarct and anterior infarct, low voltage, QTC 439 milliseconds. She had echocardiography in December which showed normal LV function without any wall motion abnormalities. She had nuclear perfusion imaging in December 2023 showing no perfusion defect or TID. [facility] Medical History (Updated 08/20/24 @ 15:07 by Mac Mera MD) Arthritis of left hip Arthritis GERD (gastroesophageal reflux disease) Asthma Thyroid disease HTN (hypertension) Surgical History S/P total left hip arthroplasty (12/21/23) History of surgery on wrist History of ankle surgery Social History Household Members: Children Housing: House Are you a primary career development coordinator/teacher to a significant other at home: No Do you presently have visiting nurse or other home services: No Alcohol intake: current Alcohol intake frequency: holidays/special occasions only Alcohol type: hard liquor Patient Tobacco Use Status: Never used Tobacco service: No Review of Systems Const Denies chills, Denies fatigue, Denies fever(s), Denies frequent falls, Denies weakness, Denies weight gain and Denies weight loss ENT Denies dizziness Card Denies chest pain, Denies leg edema, Denies lightheadedness, Denies palpitations, Denies dyspnea and Denies dyspnea on exertion Resp Denies cough, Denies dyspnea and Denies dyspnea on exertion GI Denies hematochezia Musc Denies abnormal gait, Denies muscle weakness, Denies numbness, Denies radiating pain into limb and Denies tingling Neuro Denies abnormal gait, Denies dizziness, Denies frequent falls, Denies numbness, Denies tingling and Denies weakness Endo Denies fatigue and Denies palpitations Physical Exam Vital Signs: Last Vital Signs Pulse 97 08/20/24 14:42 BP 110/60 08/20/24 14:42 BMI result Body Mass Index 21.6 GENERAL APPEARANCE: in no acute distress, frail. NECK/THYROID: no carotid bruit, no jugular venous distention. SKIN: no suspicious lesions, warm and dry. HEART: no murmurs, regular rate and rhythm, S1, S2 normal. LUNGS: clear to auscultation bilaterally. ABDOMEN: normal, bowel sounds present, soft, nontender, nondistended. EXTREMITIES: no clubbing, cyanosis, or edema. PERIPHERAL PULSES: equal. NEUROLOGIC: nonfocal, alert and oriented. Office Procedures EKG Details: sinus rhythm with premature atrial complexes, inferior infarct and anterior infarct, low voltage, QTC 439 milliseconds. [id number], Complete Assessment & Plan Assessment & Plan (1) Preoperative cardiovascular examination: Code(s): Z01.810 - Encounter for preprocedural cardiovascular examination Category: Medical (2) HTN (hypertension): Code(s): I10 - Essential (primary) hypertension Category: Medical Plan [age] year female who is here for follow-up. She has left hip arthroplasty performed in December 2023. She had echocardiography and stress performed at that time which were both unremarkable. She has no change in symptomatology and has been experiencing right hip pain and immobility due to osteoarthritis. She needs hip arthroplasty. No chest discomfort shortness of breath. Given recent testing she does not need repeat stress testing. She is intermediate risk for perioperative complications. Blood pressure is well controlled. We will confirm about 325 mg twice a day of aspirin which is on her med rec because she should not be on high dose aspirin for long time due to bleeding risk. Thank you for allowing me to participate in the care of your patient. Please feel free to contact me if you have any questions. Coding Level of Care Code Est Pt Level 4 (41297) Diagnoses Preoperative cardiovascular examination Z01.810 HTN (hypertension) I10 CPT Codes EKG - CPT: 12767-[id number], Complete ([id number])
== END 2024-08-20 15:14 | disposition home or self-care (01) ==
PROVIDERS: PCP Student in an Organized Health Care Education/Training Program; Visit Provider Internal Medicine Cardiovascular Disease
DX: I10 Essential (primary) hypertension (principal); Z01.810 Encounter for preprocedural cardiovascular examination; I49.1 Atrial premature depolarization
CPT/HCPCS: 93010; 99214

== ENCOUNTER 2024-09-17 11:02 | Outpatient (REF) | payer MEDICARE, SELFPAY ==
[2024-09-17 15:43] LABS: Alanine Aminotransferase 11 U/L (0-31); Albumin Level 4.1 g/dL (3.5-5.0); Anion Gap 9 (12-20); Aspartate Amino Transferase 32 U/L (5-31); Bilirubin Direct 0.4 mg/dL (0.0-0.5); Bilirubin Total 1.3 mg/dL (0.0-1.0); Blood Urea Nitrogen 25 mg/dL (9-16); Calcium 9.9 mg/dL (8.4-10.2); Carbon Dioxide 30 mmol/L (22-29); Chloride 104 mmol/L (96-108); Cholesterol 199 mg/dL (<200); Estimated Glomerular Filt Rate > 60; Glucose Random 103 mg/dL (60-115); HDL Cholesterol 64 mg/dL (>40); LDL Cholesterol Calculated 115 mg/dL (<100); Potassium 3.8 mmol/L (3.3-5.1); Sodium 139 mmol/L (135-145); Triglycerides 100 mg/dL (<150)
[2024-09-17 16:19] LABS: Alkaline Phosphatase 93 U/L (39-117)
== END 2024-09-17 11:03 | disposition home or self-care (01) ==
LOC: HO.CHCLDS 11:02
PROVIDERS: Visit Provider Student in an Organized Health Care Education/Training Program
DX: I10 Essential (primary) hypertension (principal)
CPT/HCPCS: 36415; 80048; 80061; 80076

== ENCOUNTER 2024-09-27 09:46 | Outpatient (AMB) | payer MEDICARE, SELFPAY ==
--- NOTE | 2024-09-27 10:03 | MHC.OFFVIS ---
Vital Signs 09/27/24 10:06 Height 5 ft 4 in Weight 125 lb BMI 21.5 Intake Visit Reasons: Pre-Op: R MAXIMUS w/NE 10/03/24 Intake Note: Yue is a 79 year old female who presents today for a pre op appointment for her right total hip arthroplasty 10/03/24. Allergies acetaminophen [From Percocet] Allergy (Verified 09/27/24 10:04) Nausea oxycodone [From Percocet] Allergy (Verified 09/27/24 10:04) Nausea regadenoson Adverse Reaction (Intermediate, Verified 09/27/24 10:04) presyncope HPI HPI Pre-Op: R MAXIMUS w/NE 10/03/24: Details: 79-year-old female who presents in the office today for her preoperative history and physical exam prior to a right total hip arthroplasty to be performed on 10/03/[address] Scooby Marina. Patient has an allergy history, as follows: -Acetaminophen; nausea -Oxycodone; Nausea Patient is currently taking, as follows: -Albuterol sulfate 90 mcg/actuation 2 puffs inhalation Q6H PRN -Calcium carbonate 600 mg PO bedtime -Calcium carbonate 200 mg PO BID PRN -Cholecalciferol 125 mcg PO bedtime -Hydrochlorothiazide 25 mg PO bedtime -Levothyroxine 50 mcg PO bedtime -Vitamin A, C, X-zdkl-fscxlj 2,148 mcg-113 mg-45 mg-17.4 mg 2 tabs PO BID Patient has a medical history, as follows: -GERD (gastroesophageal reflux disease) -Asthma -Thyroid disease -HTN (hypertension) Patient has a surgical history, as follows: -Hx of surgery on wrist; x2 -Hx of ankle surgery -Hx LTHA PFSH Medical History (Updated 08/20/24 @ 15:07 by Mac Mera MD) Arthritis of left hip Arthritis GERD (gastroesophageal reflux disease) Asthma Thyroid disease HTN (hypertension) Surgical History (Updated 08/30/24 @ 10:19 by Josseline Lloyd RN) H/O colonoscopy S/P total left hip arthroplasty (12/21/23) History of surgery on wrist History of ankle surgery Social History Household Members: Children Housing: House Are you a primary doggy daycare activities director to a significant other at home: No Do you presently have visiting nurse or other home services: Yes (DIESEL MAINTENANCE TECHNICIAN) Alcohol intake: current Alcohol intake frequency: holidays/special occasions only Alcohol type: hard liquor Patient Tobacco Use Status: Never used Tobacco service: No Review of Systems Const All systems reviewed & are unremarkable except as noted in HPI and below Physical Exam Vital Signs: BMI result Body Mass Index 21.5 Extrem Other: She walks comfortably in upright with a walker. She can walk without it but limps on the right significantly. She has no pain with passive or active left hip range of motion. There is minimal internal rotation on the right with a markedly positive impingement test and a fixed external rotation deformity. Assessment & Plan Assessment & Plan (1) Osteoarthritis of right hip: Code(s): M16.11 - Unilateral primary osteoarthritis, right hip Category: Medical Plan 79-year-old female who presents in the office today for her preoperative history and physical exam prior to a right total hip arthroplasty to be performed on 10/03/[address] Scooby Marina. Patient has an allergy history, as follows: -Acetaminophen; nausea -Oxycodone; Nausea Patient is currently taking, as follows: -Albuterol sulfate 90 mcg/actuation 2 puffs inhalation Q6H PRN -Calcium carbonate 600 mg PO bedtime -Calcium carbonate 200 mg PO BID PRN -Cholecalciferol 125 mcg PO bedtime -Hydrochlorothiazide 25 mg PO bedtime -Levothyroxine 50 mcg PO bedtime -Vitamin A, C, U-miol-qepjnu 2,148 mcg-113 mg-45 mg-17.4 mg 2 tabs PO BID Patient has a medical history, as follows: -GERD (gastroesophageal reflux disease) -Asthma -Thyroid disease -HTN (hypertension) Patient has a surgical history, as follows: -Hx of surgery on wrist; x2 -Hx of ankle surgery -Hx LTHA I discussed in detail the procedure and what to expect pre and post operatively. We discussed the risks, benefits and alternatives to the surgery as well as the rehabilitation course. The risks; which include, but are not limited to infection, bleeding, nerve injury, ongoing pain, swelling, and stiffness, perioperative risk of injury to bones and soft tissues, and blood clots. I?ve answered all questions and with their understanding they have consented to move forward with right total hip arthroplasty with Dr. Marina. Of note, patient did go to [facility] after her left total hip arthroplasty for additional physical therapy. Patient would like to try to return to the same rehab center. Patient was on Aspirin for DVT prophylaxis after left total hip arthroplasty. Patient tolerated oxycodone 5 mg for pain management after left total hip arthroplasty. Orders: Orders XR hip RT w PEL 1V Today M25.559 - Pain in unspecified hip Coding Level of Care Code Global (07802) Diagnoses Osteoarthritis of right hip M16.11
[2024-09-27 10:06] VITALS: BMI 21.5
== END 2024-09-27 11:09 | disposition home or self-care (01) ==
PROVIDERS: PCP Student in an Organized Health Care Education/Training Program; Visit Provider Physician Assistant
DX: M16.11 Unilateral primary osteoarthritis, right hip (principal)
CPT/HCPCS: 99024

== ENCOUNTER → 2024-09-27 09:48 | Outpatient (BNV) | payer MEDICARE, SELFPAY | PROVIDERS: PCP Student in an Organized Health Care Education/Training Program; Visit Provider Radiology Diagnostic Radiology | DX: M16.11 Unilateral primary osteoarthritis, right hip (principal) | CPT/HCPCS: 73502 ==

== ENCOUNTER 2024-09-27 10:58 | Outpatient (REF) | payer MEDICARE, SELFPAY ==
--- NOTE | ~2024-09-27 | XR_ITS ---
EXAMINATION: XR hip RT w PEL 1V HISTORY: M25.559 - Pain in unspecified hip COMPARISON: Comparison is made with the prior examination dated 06/14/2024. FINDINGS: A single AP view of the pelvis and two views of the right hip are submitted. The bones are osteopenic. There is no fracture or dislocation. Again seen is severe osteoarthritis with joint space narrowing, osteophyte formation, subchondral cyst formation, and remodeling of the femoral head. The patient is status post left total hip arthroplasty. The soft tissues are unremarkable. XR/XR hip RT w PEL 1V IMPRESSION: Severe osteoarthritis of the right hip as described. Electronically signed by: Tj Moser MD 09/27/2024 02:37 PM [facility]
== END 2024-09-27 10:59 | disposition home or self-care (01) ==
LOC: HO.LAB 10:58
PROVIDERS: PCP Student in an Organized Health Care Education/Training Program; Visit Provider Physician Assistant
DX: M25.559 Pain in unspecified hip (principal); M16.11 Unilateral primary osteoarthritis, right hip
CPT/HCPCS: 73502; 99212

== ENCOUNTER → 2024-10-03 08:22 | Outpatient (BNV) | payer MEDICARE, SELFPAY | PROVIDERS: PCP Student in an Organized Health Care Education/Training Program; Visit Provider Orthopaedic Surgery | DX: Z96.641 Presence of right artificial hip joint (principal) | CPT/HCPCS: 27130; 99024 ==

== ENCOUNTER → 2024-10-03 08:22 | Outpatient (BNV) | payer MEDICARE, SELFPAY | PROVIDERS: PCP Student in an Organized Health Care Education/Training Program; Visit Provider Hospitalist | DX: Z96.641 Presence of right artificial hip joint (principal) | CPT/HCPCS: 99221; 99233; 99499 ==

== ENCOUNTER → 2024-10-03 09:39 | Outpatient (BNV) | payer MEDICARE, SELFPAY | PROVIDERS: PCP Student in an Organized Health Care Education/Training Program; Visit Provider Radiology Diagnostic Radiology | DX: Z96.641 Presence of right artificial hip joint (principal) | CPT/HCPCS: 72170 ==

== ENCOUNTER → 2024-10-03 11:14 | Outpatient (BNV) | payer MEDICARE, SELFPAY | PROVIDERS: PCP Student in an Organized Health Care Education/Training Program; Visit Provider Internal Medicine Cardiovascular Disease | DX: R94.31 Abnormal electrocardiogram [ECG] [EKG] (principal) | CPT/HCPCS: 93010 ==

== ENCOUNTER 2024-10-06 13:45 | Inpatient (IN) | payer MEDICARE, SELFPAY ==
[2024-08-30 10:20] VITALS: BP 147/71; PULSE 82; RESP 16; O2SAT 95; BMI 22.1
--- NOTE | 2024-08-30 10:41 | P.CONAN_ITS ---
Documented by User: Carla Velázquez NP 10/02/24 13:24 HPI - Anesthesia Eval Consult details Narrative: 79yo F for Right Hip Total Replacement, 10/03/23 s/p left total hip 12/2023 with GA-ETT 7 - no anesthesia issues Medically optimized per PCP Cardiac optimized No recent illness No CP/SOB GERD: Rare. Tums PRN Asthma: Stable. Rare use of albuterol PMFSH Active Problems Active Problems: All Active Problems Osteoarthritis of right hip (Acute) Bilateral hip joint arthritis (Acute) Arthritis of left knee (Acute) Abnormal ECG (Acute) Preoperative cardiovascular examination (Acute) HTN (hypertension) (Acute) S/P total left hip arthroplasty (Acute 12/21/23) Past Medical History Medical History Arthritis of left hip Arthritis GERD (gastroesophageal reflux disease) Asthma Thyroid disease HTN (hypertension) Family History Family history of problems with anesthesia: No Surgical History Surgical History H/O colonoscopy S/P total left hip arthroplasty (12/21/23) History of surgery on wrist History of ankle surgery History of Problems with Anesthesia: No Social History Social History Household Members: Children Housing: House Are you a primary home care physical therapist to a significant other at home: No Do you presently have visiting nurse or other home services: Yes ([employer]) Alcohol intake: current Alcohol intake frequency: holidays/special occasions only Alcohol type: hard liquor Patient Tobacco Use Status: Never used Tobacco Use of substances other than those prescribed or required for medical reasons: No Have you been hit, kicked, punched, or otherwise hurt by someone within the past year? If so, by whom?: No Are you DNR?: No Advance Directives: No Advance Directives Information Provided: Yes Advance Directives on File: No Recently lost weight without trying: No Eating poorly because of decreased appetite: No Nutrition Risks: No Nutritional Risk Patient : No : No Poor oral hygiene: Yes (full upper and lower denture) service: No Meds Allergies Allergy/AdvReac Type Severity Reaction Status Date / Time acetaminophen [From Percocet] Allergy Nausea Verified 10/03/24 09:47 oxycodone [From Percocet] Allergy Nausea Verified 10/03/24 09:47 regadenoson AdvReac Intermediate presyncope Verified 10/03/24 09:47 Home Medications ?Medication ?Instructions ?Recorded ?Confirmed ?Last Taken ?Type albuterol sulfate 90 mcg/actuation 2 puff inhalation Q6H PRN 12/04/20 08/30/24 09/19/23 History aerosol inhaler (ProAir HFA) Shortness Of Breath Or Wheezing hydrochlorothiazide 25 mg tablet 25 mg PO QPM 12/04/20 08/30/24 10/02/24 History levothyroxine 50 mcg tablet 50 mcg PO DAILY 12/04/20 08/30/24 10/02/24 History calcium carbonate 600 mg PO DAILY 12/13/23 08/30/24 09/26/24 History cholecalciferol (vitamin D3) 125 125 mcg PO DAILY 12/13/23 08/30/24 09/26/24 History mcg (5,000 unit) tablet (Vitamin D3) vitamins A,C,X-pyun-btwdlm 2,148 2 tab PO BID 12/13/23 08/30/24 09/26/24 History mcg-113 mg-45 mg-17.4 mg tablet (PreserVision AREDS) aspirin 81 mg tablet,delayed 81 mg PO BEDTIME 08/30/24 08/30/24 09/26/24 History release (Adult Low Dose Aspirin) docusate sodium 100 mg capsule 100 mg PO BID PRN Constipation 08/30/24 08/30/24 09/26/24 History ferrous sulfate 325 mg (65 mg 325 mg PO DAILY 08/30/24 08/30/24 09/26/24 History iron) tablet (iron) Exam Height,Weight and Vital Signs: Height 5 ft 3 in Weight 56.699 kg Last Vital Signs Pulse 82 08/30/24 10:20 Resp 16 08/30/24 10:20 BP 147/71 H 08/30/24 10:20 Pulse Ox 95 08/30/24 10:20 O2 Del Method Room Air 08/30/24 10:20 Pertinent Lab Results Pertinent Lab Results: Lab Results 08/30/24 08/30/24 09/27/24 Range/Units 10:30 11:42 11:35 WBC 5.9 (4.8-10.8) X10*3/uL RBC 4.03 L D (4.20-5.50) X10*6/uL Hgb 12.6 D (12.0-16.0) g/dl Hct 38.5 D (37.0-47.0) % MCV 95.5 (80.0-98.0) fL MCH 31.3 (27.0-33.0) pg MCHC 32.7 (31.0-35.0) g/dl RDW 12.7 (11.0-16.0) % Plt Count 237 (160-400) X10*3/uL MPV 10.0 (9.4-12.3) fL Absolute Nucleated RBC 0.000 (0.0-0.012) X10*3/uL Nucleated RBC % (auto) 0.0 (0.0-0.2) /100WBC Sodium 144 (135-145) mmol/L Potassium 4.2 (3.3-5.1) mmol/L Chloride 105 (96-108) mmol/L Carbon Dioxide 28 (22-29) mmol/L Anion Gap 15 (12-20) BUN 21 H (9-16) mg/dL Creatinine 0.80 (0.5-1.4) mg/dL Estim Creat Clear Calc 47.1 Estimated GFR > 60 Random Glucose 99 (60-115) mg/dL Calcium 9.7 (8.4-10.2) mg/dL Nasal Screen MRSA (PCR) NEGATIVE (Negative) Nasal S. aureus Screen POSITIVE A (Negative) Nasal MRSA/S.aureus Interp SEE NOTE Blood Type B Positive Antibody Screen NEGATIVE Narrative Narrative: EKG 08/2024 Details: sinus rhythm with premature atrial complexes, inferior infarct and anterior infarct, low voltage, QTC 439 milliseconds. ECHO 11/2023 Conclusions: - The left ventricular systolic function is normal. The calculated ejection fraction is 61% by biplane method. - No obvious valvular pathology seen on this study. - There is mild dilatation of the ascending aorta measuring 4.10 cm. NM cardiolite stress test 12/2023 Impression: 1. Myocardial perfusion imaging study shows normal myocardial perfusion 2. Gated LVEF is 69% 3. Transient ischemic dilatation not present EKG is nondiagnostic for ischemia Assessment and Plan Final Anesthetic Review Family History of Problems with Anesthesia: No History of Problems with Anesthesia: No Documented by User: Laxmi Mendez MD 10/03/24 10:45 PMFSH Past Medical History Medical History Arthritis of left hip Arthritis GERD (gastroesophageal reflux disease) Asthma Thyroid disease HTN (hypertension) Surgical History Surgical History H/O colonoscopy S/P total left hip arthroplasty (12/21/23) History of surgery on wrist History of ankle surgery Social History Social History Household Members: Children Housing: House Are you a primary home care physical therapist to a significant other at home: No Do you presently have visiting nurse or other home services: Yes ([employer]) Alcohol intake: current Alcohol intake frequency: holidays/special occasions only Alcohol type: hard liquor Patient Tobacco Use Status: Never used Tobacco Use of substances other than those prescribed or required for medical reasons: No Have you been hit, kicked, punched, or otherwise hurt by someone within the past year? If so, by whom?: No Are you DNR?: No Advance Directives: No Advance Directives Information Provided: Yes Advance Directives on File: No Recently lost weight without trying: No Eating poorly because of decreased appetite: No Nutrition Risks: No Nutritional Risk Patient : No : No Poor oral hygiene: Yes (full upper and lower denture) service: No Meds Allergies Allergy/AdvReac Type Severity Reaction Status Date / Time acetaminophen [From Percocet] Allergy Nausea Verified 10/03/24 09:47 oxycodone [From Percocet] Allergy Nausea Verified 10/03/24 09:47 regadenoson AdvReac Intermediate presyncope Verified 10/03/24 09:47 Home Medications ?Medication ?Instructions ?Recorded ?Confirmed ?Last Taken ?Type albuterol sulfate 90 mcg/actuation 2 puff inhalation Q6H PRN 12/04/20 08/30/24 09/19/23 History aerosol inhaler (ProAir HFA) Shortness Of Breath Or Wheezing hydrochlorothiazide 25 mg tablet 25 mg PO QPM 12/04/20 08/30/24 10/02/24 History levothyroxine 50 mcg tablet 50 mcg PO DAILY 12/04/20 08/30/24 10/02/24 History calcium carbonate 600 mg PO DAILY 12/13/23 08/30/24 09/26/24 History cholecalciferol (vitamin D3) 125 125 mcg PO DAILY 12/13/23 08/30/24 09/26/24 History mcg (5,000 unit) tablet (Vitamin D3) vitamins A,C,N-cyxi-scrsfe 2,148 2 tab PO BID 12/13/23 08/30/24 09/26/24 History mcg-113 mg-45 mg-17.4 mg tablet (PreserVision AREDS) aspirin 81 mg tablet,delayed 81 mg PO BEDTIME 08/30/24 08/30/24 09/26/24 History release (Adult Low Dose Aspirin) docusate sodium 100 mg capsule 100 mg PO BID PRN Constipation 08/30/24 08/30/24 09/26/24 History ferrous sulfate 325 mg (65 mg 325 mg PO DAILY 08/30/24 08/30/24 09/26/24 History iron) tablet (iron) Exam Airway Mallampati Class: I TM Dist: <=3cm Neck ROM: Poor Denture: Upper and Lower Heart: rrr Lungs: cta Assessment and Plan Assessment Anesthesia Assessment: Anesthesia Plan Discussed Final Anesthetic Review NPO: Yes ASA Class: III (severe disabling arthritis) Final Preanesthetic Review: No Changes in Pt Med Stat, Meds/Allgs Chart Reviewed, Consent Obtained/Reviewed and Anes Risks/Benef Reviewed Patient Risk: Intermediate Procedure Risk: Intermediate Anesthetic Plan Anesthetic Plan: GA Disposition: Standard PACU
[2024-08-30 13:04] LABS: MRSA Nasal PCR NEGATIVE (Negative); SA Nasal PCR POSITIVE (Negative)
[2024-08-30 13:08] LABS: Hematocrit 38.5 % (37.0-47.0); Hemoglobin 12.6 g/dl (12.0-16.0); Mean Corpuscular HGB Conc 32.7 g/dl (31.0-35.0); Mean Corpuscular Hemoglobin 31.3 pg (27.0-33.0); Mean Corpuscular Volume 95.5 fL (80.0-98.0); Platelet Count 237 X10*3/uL (160-400); Red Blood Count 4.03 X10*6/uL (4.20-5.50); Red Cell Distribution Width 12.7 % (11.0-16.0); White Blood Count 5.9 X10*3/uL (4.8-10.8)
[2024-08-30 13:33] LABS: Anion Gap 15 (12-20); Blood Urea Nitrogen 21 mg/dL (9-16); Calcium 9.7 mg/dL (8.4-10.2); Carbon Dioxide 28 mmol/L (22-29); Chloride 105 mmol/L (96-108); Creatinine Clr Calc Pharmacy 47.1; Estimated Glomerular Filt Rate > 60; Glucose Random 99 mg/dL (60-115); Potassium 4.2 mmol/L (3.3-5.1); Sodium 144 mmol/L (135-145)
[2024-10-03] VITALS (18 sets, daily range): BP systolic 66–156; BP diastolic 32–73; PULSE 49–80; RESP 15–20; TEMP 36.4–37.1; O2SAT 94–100; BMI 21.0
--- OUTSIDE RECORDS SUMMARY | 2024-10-03 08:34 | XMS_ITS | Encounter Summary ---
Author Organization [employer] Address [address] [place] [address] Care Team Providers Care Geothermal Field Technician Name Role Phone Mi Mo MD Primary Care Provider [phone] Encounter Details Date Type Department Care Team ([facility] st Contact Info) Description 09/18/2024 Telephone [facility] [address] [place], [place] [phone] Mi Mo MD [address] [place], [place] [id number] Social History Tobacco Use Types Packs/Day Years Used Date Smoking Tobacco: Never Smokeless Tobacco: Never Alcohol Use Standard Drinks/Week Comments Never 0 (1 standard drink = 0.6 oz pur e alcohol) Depression Answer Date Recorded Patient Health Questionnaire-9 Score 0 02/09/2023 Housing Stability Answer Date Recorded What is your housing situation today? I have milvia alicea 07/07/[address] you li ve. Do you have problems with any of the following? None of the above 07/07/2023 Food Insecurity Answer Date Recorded Within the past 12 months, y ou worried that your food would run out before you got money to buy more: Never True 07/07/2023 Within the past 12 months,th e food you bought just didn't last and you didn't have enough money to get more: Never True Transportation Answer Date Recorded In the past 12 months, has l ack of transportation kept you from medical appts, meetings, work or from getting things needed for daily living? No 07/07/2023 Utilities Answer Date Recorded In the past 12 months, has t he electric, gas, oil or water company threatened to shut off services in your home? No 07/07/2023 Depression Answer Date Recorded Patient Health Questionnaire-2 Score 0 02/09/2023 Comments No Sex and Gender Information Value Date Recorded Sex Assigned at Female 07/12/2022 10:36 AM EDT Legal Sex Female 10:36 AM EDT Gender Identity Female 02/08/2023 8:18 PM EDT Sexual Orientation Straight 07/12/2022 10 :36 AM EDT documented as of this encounter Miscellaneous Notes * Telephone Encounter - Eliceo Parrish RN - 09/18/2024 3:[address] Mo: Labs reviewed. Advised low fat diet. Referred to Nephro. TC placed, spoke with pt, inform of message above from PCP. Pt verbalized understanding and agreed to plan. documented in this encounter Plan of Treatment Not on file documented as of this encounter Visit Diagnoses Not on filedocumented in this encounter Additional Health Concerns Assessment Noted Time PHQ-9 Depression Total Score: 0 02/10/20 23 11:07 AM EDT documented as of this encounter Care Teams Geothermal Field Technician Relationship Specialty Start Date End Date Mi Mo MD [address] [place] [id number] PCP - General Family Medicine 10/31/19 documented as of this encounter
--- OUTSIDE RECORDS SUMMARY | 2024-10-03 08:34 | XMS_ITS | Encounter Summary ---
Author Organization [employer] Address [address] [facility] 7[address] [place] [address] Care Team Providers Care Bpm Architect Name Role Phone Mi Mo MD Primary Care Provider [phone] Encounter Details Date Type Department Care Team (Late st Contact Info) Description 09/27/2024 Orders Only [facility] External Provider, [facility] Social History Tobacco Use Types Packs/Day Years [...] AM EDT documented as of this encounter Plan of Treatment Not on file documented as of this encounter Procedures Procedure Name Priority Date/Time Associated Diagnosis Comments TYPE AND SCREEN Routine 09/27/2024 11:35 AM EST XR HIP RIGHT WITH PELVIS 1 VIEW Routine 09/27/2024 9:48 AM EST documented in this encounter Results * Type and screen (09/27/2024 11:35 AM EST) Blood Type BP [facility] Antibody Screen NEGATIVE [facility] 09/27/2024 11:3 5 AM EST 09/27/2024 12:09 PM EST Narrative [facility] - 09/27/2024 2:47 PM EST WITNESSED BY ALONZO:Call Blood Bank (ext. [phone]) to band patient on admission.Type and Screen in effect until 2300 on [id number] expiration changed by NATY on 09/27/24Reason: PAT SPEC us Generic External Data Provider LAB BLOOD BANK TE ST ORDERABLES Final Result [facility] [address] [place] [phone] * XR Hip right with Pelvis 1 view (09/27/2024 9:48 AM EST) Anatomical Region Laterality Modality Lower Extremities, Hip Bilateral Radiograp hic Imaging 09/27/2024 9:48 AM EST Narrative 09/27/2024 2:39 PM EST ? [facility] ?[address] ?[place] [address] ?XRay Report ? Signed ? Patient: Clinton,Yue A ?MR#: [id number] ?? [id number] ? : 1945 ?Acct:[id number] ? Age/Sex: 79 / F ?ADM Date: 09/27/24 ? Loc: HO.LAB ? Attending Dr: Geno Lima PA-C ? Ordering Physician: Geno Lima PA-C ?? Date of Service: 09/27/24 ?? Procedure(s): XR hip RT w PEL 1V ?? Accession Number(s): [id number] ? cc: Geno Lima PA-C; Mi Mo MD ? EXAMINATION: ??XR hip RT w PEL 1V ? HISTORY: M25.559 - Pain in unspecified hip ? COMPARISON: Comparison is made with the prior examination dated ?? 06/14/2024. ? FINDINGS: ?? A single AP view of the pelvis and two views of the right ?? hip are submitted. ??The bones are osteopenic. ??There is no fracture or ?? dislocation. ??Again seen is severe osteoarthritis with joint space ?? narrowing, osteophyte formation, subchondral cyst formation, and ?? remodeling of the femoral head. The patient is status post left total ?? hip arthroplasty. ??The soft tissues are unremarkable. ? XR/XR hip RT w PEL 1V ?? IMPRESSION: ?? Severe osteoarthritis of the right hip as described. ? Electronically signed by: ??Tj Moser MD ??09/27/2024 02:37 PM EST ?? RP ? Dictated By: ?Tj Moser MD ? Signed By: ?<Electronically signed by Tj Moser MD in OV> ?09/27/24 1437 ? DD/ 0948 ? TD/TT: 09/27/24 0950 ? Pilot Control Operator Helper: ? Procedure Note Anita, Vipul - 09/27/[address] [address] XRay Report Signed Patient: Yue Osei AMR#: [id number] : 5Acct:[id number] Age/Sex: 79 / FADM Date: 09/27/24 Loc: HO.LAB Attending Dr: Geno Lima PA-C Ordering Physician: Geno Lima PA-C Date of Service: 09/27/24 Procedure(s): XR hip RT w PEL 1V Accession Number(s): [id number] cc: Geno Lima PA-C; Mi Mo MD EXAMINATION: XR hip RT w PEL 1V HISTORY: M25.559 - Pain in unspecified hip COMPARISON: Comparison is made with the prior examination dated 06/14/2024. FINDINGS: A single AP view of the pelvis and two views of the right hip are submitted. The bones are osteopenic. There is no fracture or dislocation. Again seen is severe osteoarthritis with joint space narrowing, osteophyte formation, subchondral cyst formation, and remodeling of the femoral head. The patient is status post left total hip arthroplasty. The soft tissues are unremarkable. XR/XR hip RT w PEL 1V IMPRESSION: Severe osteoarthritis of the right hip as described. Electronically signed by: Tj Moser MD 09/27/2024 02:37 PM EST Dictated By: Tj Moser MD Signed By: <Electronically signed by Tj Moser MD in OV> 09/27/24 1437 DD/ 0948 TD/TT: 09/27/24 0950 Pilot Control Operator Helper: [facility] External Provider IMG XR PROCEDURES Final Result documented in this encounter Visit Diagnoses Not on filedocumented in this encounter Additional Health Concerns Assessment Noted Time PHQ-9 Depression Total Score: 0 02/10/20 23 11:07 AM EDT documented as of this encounter Care Teams Bpm Architect Relationship Specialty Start Date End Date Mi Mo MD [address] [place] [phone] PCP - General Family Medicine 10/31/19 documented as of this encounter
--- OUTSIDE RECORDS SUMMARY | 2024-10-03 08:34 | XMS_ITS | Clinical Summary ---
Author Organization [employer] Address [address] [place] [address] 7[address] [place] [address] Care Team Providers Care Metal Miner Name Role Phone Mi Mo MD Primary Care Provider [phone] Allergies Active Allergy Reactions Criticality Noted Date Comments Gramineae Pollens 09/16/2023 Other reaction(s): Rhinitis Medications albuterol (ProAir HFA) 108 (90 Base) MCG/ACT inhaler Inhale every 6 (six) hours. 0 Active Calcium Carb-Cholecalci ferol 600-10 MG-MCG tablet Take 1 tablet by mouth. 1 Active Diclofenac Sodium (Voltaren Arthritis Pain) 1 % gel Apply to the area 4 times a day 50 g 11 3 Active hydroCHLOROthia zide (HYDRODiuril) 25 MG tablet TAKE 1 TABLET BY MOUTH EVERY DAY 90 tablet 3 4 Active levothyroxine (Synthroid, Levoxyl) 50 MCG tablet TAKE 1 TABLET BY MOUTH EVERY DAY ON AN EMPTY STOMACH 30 MINUTES BEFORE BREAKFAST 90 tablet 3 4 Active celecoxib (CeleBREX) 200 MG capsule Take 1 capsule (200 mg) by mouth Once per day. 30 capsule 11 4 04/17/20 25 Active Active Problems Problem Noted Date Diagnosed Date Other fatigue 08/17/2023 Assessment & Plan (08/17/2023 2:37 PM EST): Patient that presented visit with complaints of fatigue will be sent for labs. -Labs: CBC, Comp. Metabolic Panel, TSH/FT4, Vit.D, 25, Sed Rate M.W., C-Reactive Prtn., Ferritin, Iron&Total Iron, HIV-1/2, Vit. B12/Folate, Serum Panel. Arthritis of left knee 08/17/2023 Assessment & Plan (08/17/2023 2:28 PM EST): Patient bone on bone, severe arthritis, needs assistance of both hands to walk and stand and concern of 4 prong cane is not sufficient since she needs 2 hand assistance. Will send to orthopedics and PT. Will order XR and scheduled with PCP. Will order rolling walker. Patient? s clinical findings support the need for a walker given the patient has a mobility limitation that significantly impairs her ability to participate in one or more mobility-related activities of daily living (MRADL). Patient has a minimal need for weight bearing and will benefit from a four-wheel walker (rollator) with a seat and a basket Medical condition: Severe left knee arthritis Weight: Wt Readings from Last 2 Encounters: 08/17/23 125 lb 6.4 oz (56.9 kg) 02/09/23 122 lb 6.4 oz (55.5 kg) Patient needs a walker to perform MRADL? s and the functional mobility deficit cannot be sufficiently resolved by use of a cane or crutches, given she will need assistance of both upper extremities for balance. The patient is willing to use a walker and the functional mobility deficit can be improved with the use of this device. Primary hypertension 08/17/2023 Assessment & Plan (08/17/2023 2:36 PM EST): Uncontrolled: patient presented visit with an elevated blood pressure with readings of 158/94 mmHg. Advise to keep taking blood pressure medications. Recommended to keep monitoring blood pressure at home and bring readings upon next office visit. Hypothyroidism 02/09/2023 Mild intermittent asthma 02/09/2023 Encounters Date Type Department Care Team Description 09/27/2024 Orders Only [facility] External Provider, [facility] 09/18/2024 Telephone [facility] [address] [place] [address] Mi Mo MD 09/18/2024 Orders Only [facility] [address] [place] [address] Mi Mo MD Primary hypertension (Primary Dx) 09/18/2024 Orders Only [facility] [address] [place] [address] ProviderGlenis MD 09/17/2024 10:15 AM EST Office Visit [facility] [address] [place] [address] Mi Mo MD Primary hypertension (Primary Dx); Mild intermittent asthma without complication; Right hip pain; Preop cardiovascular exam 09/17/2024 Travel 09/14/2024 Telephone [facility] [address] [place] [address] Mi Mo MD Chart Prep 08/30/2024 Orders Only GENER[facility] EXTERNAL DATA DEPARTMENT Provider, Generic External Data 07/31/2024 Telephone [facility] [address] [place] [address] Mi Mo MD Requesting a call back from Last 3 Months Social History Tobacco Use Types Packs/Day Years Used Date Smoking Tobacco: Never Smokeless Tobacco: Never Tobacco Cessation:Counseling Given: Not Answered Alcohol Use Standard Drinks/Week Comments Never 0 [...] Orientation Straight 07/12/2022 10 :36 AM EDT Last Filed Vital Signs Vital Sign Reading Time Taken Comments Blood Pressure 157/84 09/17/2024 10:45 AM EST Pulse 85 09/17/2024 10:45 AM EST Temperature 36.9 ??C (98.4 ??F) 09/17/2024 10:[address] Respiratory Rate 20 09/17/2024 10:45 AM EST Oxygen Saturation 98% 09/17/2024 10:45 AM EST Inhaled Oxygen Concentration - - Weight 54.4 kg (120 lb) 09/17/2024 10:45 AM EST Height 154.9 cm (5' 1 ) 09/17/2024 10:45 AM EST Body Mass Index 22.67 09/17/2024 10:45 AM EST Plan of Treatment Health Maintenance Due Date Last Done Comments Alcohol/Substance Use Screening 1957 Hepatitis C Screening 1963 Zoster Vaccines (1 of 2) 1995 Pneumococcal Vaccine: 65+ Years (2 of 2 - PPSV23 or PCV20) 06/05/2015 04/10/2015 RSV Patients and Patients Aged 60 years or older (1 - 1-dose 75+ series) 2020 Depression Screening 02/10/2024 02/09/2023, 02/10/20 23 SDOH Screening 02/10/2024 02/09/2023 COVID-19 Vaccine ( season) 2024 09/15/2022, 01/01/2021, 12/09/2020 Tobacco Screening 09/17/2025 09/17/2024 DTaP/Tdap/Td Vaccines (2 - Td or Tdap) 07/27/2028 07/27/2018 Lipid Panel 09/17/2029 09/17/2024, 08/0 02/2024, 02/09/2023 Influenza Vaccine Completed 07/30/2024, , 09/15/2022, Additional history exists HIB Vaccines Aged Out No longer eligi ble based on patient's age to complete this topic HPV Vaccines Aged Out No longer eligi ble based on patient's age to complete this topic Hepatitis A Vaccines Aged Out No long er eligible based on patient's age to complete this topic Hepatitis B Vaccines Aged Out No long er eligible based on patient's age to complete this topic IPV Vaccines Aged Out No longer eligi ble based on patient's age to complete this topic Meningococcal Vaccine Aged Out No yunior lillian eligible based on patient's age to complete this topic RSV under 20 months Aged Out No longe r eligible based on patient's age to complete this topic Rotavirus Vaccines Aged Out No longer eligible based on patient's age to complete this topic Procedures Procedure Name Priority Date/Time Associated Diagnosis Comments TYPE AND SCREEN Routine 09/27/2024 11:35 AM EST XR HIP RIGHT WITH PELVIS 1 VIEW Routine 09/27/2024 9:48 AM EST HEPATIC FUNCTION PANEL Routine 09/17/2024 11:03 AM EST Primary hypertension LIPID PANEL, STANDARD Routine 09/17/2024 11:03 AM EST Primary hypertension BASIC METABOLIC PANEL Routine 09/17/2024 11:03 AM EST Primary hypertension ECG 12-LEAD Routine 09/17/2024 10:24 AM EST Preop cardiovascular exam BASIC METABOLIC PANEL Routine 08/30/2024 11:42 AM EST CBC Routine 08/30/2024 11:42 AM EST MRSA NASAL SCREEN Routine 08/30/2024 10: 30 AM EST ECG 12-LEAD Routine 08/20/2024 9:15 AM EST from Last 3 Months Results * Type and screen (09/27/2024 11:35 AM EST) Blood Type BP [facility] Antibody Screen NEGATIVE [facility] 09/27/2024 11:3 5 AM EST 09/27/2024 12:09 PM EST Narrative [facility] - 09/27/2024 2:47 PM EST WITNESSED BY ALONZO:Call Blood Bank (ext. [phone]) to band patient on admission.Type and Screen in effect until 2300 on [id number] expiration changed by [email or web address] on 09/27/24Reason: PAT SPEC us Generic External Data Provider LAB BLOOD BANK TE ST ORDERABLES Final Result [facility] [address] [place] [address] [phone] * XR Hip right with Pelvis 1 view (09/27/2024 9:48 AM EST) Anatomical Region Laterality Modality Lower Extremities, Hip Bilateral Radiograp hic Imaging 09/27/2024 9:48 AM EST Narrative 09/27/2024 2:39 PM EST ? [facility] ?[address] ?[place] [address] ?XRay Report ? Signed ? Patient: Yue Osei ?MR#: [id number] ?? [id number] ? : 1945 ?Acct:[id number] ? Age/Sex: 79 / F ?ADM Date: 09/27/24 ? Loc: HO.LAB ? Attending Dr: Geno Lima PA-C ? Ordering Physician: Geno Lima PA-C ?? Date of Service: 09/27/24 ?? Procedure(s): XR hip RT w PEL 1V ?? Accession Number(s): [id number] ? cc: Geno Lima PA-C; Mi Mo [...] DD/ 0948 ? TD/TT: 09/27/24 0950 ? Ve Teacher: ? Procedure Note Anita, Image - 09/27/2024 [place] [address] XRay Report Signed Patient: Yue Osei AMR#: [id number] : 5Acct:[id number] Age/Sex: 79 / FADM Date: 09/27/24 Loc: HO.LAB Attending Dr: Geno Lima PA-C Ordering Physician: Geno Lima PA-C Date of Service: 09/27/24 Procedure(s): XR hip RT w PEL 1V Accession Number(s): [id number] cc: Geno Lima PA-C; Mi Mo MD [...] Tj Moser MD 09/27/2024 02:37 PM EST RP Dictated By: Tj Moser MD Signed By: <Electronically signed by Tj Moser MD in OV> 09/27/24 1437 DD/ TD/TT: 09/27/24 0950 Ve Teacher: [facility] External Provider IMG XR PROCEDURES Final Result * (ABNORMAL) Hepatic Function Panel (09/17/2024 11:03 AM EST) Bilirubin, Total 1.3(H) 0.0 - 1.0 mg/dL [facility] Bilirubin, Direct 0.4 0.0 - 0.5 mg/dL [facility] Aspartate Amino Transferase 32(H) 5 - 31 U/L [facility] Alanine Aminotransferase 11 0 - 31 U/L [facility] Total Protein 7.0 6.5 - 8.0 g/dL [facility] Albumin Level 4.1 3.5 - 5.0 g/dL [facility] Alkaline Phosphatase 93 39 - 117 U/L [facility] Blood Venous blood specimen / Unknown 09/17/2024 11:03 AM EST 09/17/2024 2:20 PM EST Mi Mo MD LAB BLOOD ORDERABLES Final Resul t [facility] [address] [place] [phone] * (ABNORMAL) Lipid Panel, Standard (09/17/2024 11:03 AM EST) Triglycerides 100 <150 mg/dL [facility] Comment:Desirable Triglyceri de: less than 150 mg/dLBorderline High Triglyceride 150-199 mg/dLHigh Triglyceride: 200-499 mg/dLVery High Triglyceride: greater than or equal to 5OO mg/dL Cholesterol 199 <200 mg/dL [facility] Comment:Desirable Cholestero l: less than 200 mg/dLBorderline High Cholesterol: 200-239 mg/dLHigh Cholesterol: greater than 239 mg/dL LDL Cholesterol Calculated 115(H) <100 mg/dL [facility] Comment:Desirable LDL: less than 100 mg/dLNear Optimal/Above Optimal LDL: 110- 129 mg/dLBorderline High LDL: 130-159 mg/dLHigh LDL: 160-189 mg/dLVery High LDL: greater than or equal to 190 mg/dL HDL Cholesterol 64 >40 mg/dL [facility] Comment:Desirable HDL: great er than 40 mg/dL Note: This HDL assay may give artificially low results in patients with liver disease. Blood Venous blood specimen / Unknown 09/17/2024 11:03 AM EST 09/17/2024 2:20 PM EST us Mi Mo MD LAB BLOOD ORDERABLES Final Resul t [facility] [address] [place] [phone] * (ABNORMAL) Basic Metabolic Panel (09/17/2024 11:03 AM EST) Only the most recent of2 resultswithin the time period is included. Sodium 139 135 - 145 mmol/L [facility] Potassium 3.8 3.3 - 5.1 mmol/L [facility] Chloride 104 96 - 108 mmol/L [facility] Carbon Dioxide 30(H) 22 - 29 mmol/L [facility] Anion Gap 9(L) 12 - 20 [facility] Urea Nitrogen (BUN) 25(H) 9 - 16 mg/dL [facility] Creatinine, Serum 0.81 0.5 - 1.4 mg/dL [facility] Estimated Glomerular Filt Rate >60 [facility] Comment:Chronic Kidney Disea se: Estimated GFR < 60 mL/min/1.01j0Sdraaq Kidney Disease: Estimated GFR < 15 mL/min/1.73m2 Glucose 103 60 - 115 mg/dL [facility] Calcium 9.9 8.4 - 10.2 mg/dL [facility] Blood Venous blood specimen / Unknown 09/17/2024 11:03 AM EST 09/17/2024 2:20 PM EST Mi Mo MD LAB BLOOD ORDERABLES Final Resul t [facility] [address] [place] [address] [phone] * ECG 12 lead (09/17/2024 10:24 AM EST) Only the most recent of2 resultswithin the time period is included. Narrative Mi Mo MD - 09/17/2024 10:24 AM EST NSR No acute Process Mi Mo MD ECG ORDERABLES Final Result * (ABNORMAL) CBC (08/30/2024 11:42 AM EST) White Blood Count 5.9 4.8 - 10.8 X10*3/uL [facility] Red Blood Count 4.03(L) 4.20 - 5.50 X10*6/uL [facility] Hemoglobin 12.6 12.0 - 16.0 g/dl [facility] Hematocrit 38.5 37.0 - 47.0 % [facility] Mean Corpuscular Volume 95.5 80.0 - 98.0 fL [facility] Mean Corpuscular Hemoglobin 31.3 27.0 - 33.0 pg [facility] Mean Corpuscular HGB Conc 32.7 31.0 - 35.0 g/dl [facility] Red Cell Distribution Width 12.7 11.0 - 16.0 % [facility] Platelet Count 237 160 - 400 X10*3/uL [facility] Mean Platelet Volume 10.0 9.4 - 12.3 fL [facility] NRBC Pct Auto 0.0 0.0 - 0.2 /100WBC [facility] NRBC Abs Auto 0.000 0.0 - 0.012 X10*3/uL [facility] 08/30/2024 11:4 2 AM EST 08/30/2024 11:42 AM EST us Generic External Data Provider LAB BLOOD ORDERAB LES Final Result Performing Organization Address [facility] Co de Phone Number [facility] [address] [place] [address] [phone] * (ABNORMAL) MRSA Nasal Screen (08/30/2024 10:30 AM EST) MRSA Nasal PCR NEGATIVE Negative [facility] SA Nasal PCR POSITIVE(A) Negative [facility] MRSA Interpretation SEE NOTE [facility] Comment:MRSA target DNA not detected; SA target DNA detected.A MRSA NEGATIVE, SA POSITIVE test result does not precludeMRSA nasal colonization. 08/30/2024 10:3 0 AM EST 08/30/2024 11:03 AM EST Generic External Data Provider LAB MICROBIOLOGY - GENERAL ORDERABLES Final Result Performing Organization Address [facility] Co de Phone Number [facility] [address] [place] [address] [phone] from Last 3 Months Insurance [facility] MEDICARE ADVANTAGE HMO * Guarantor: Yue Osei Account Type Relation to Patient Date of Phone Billing Address Personal/Family Self [address] [place] Care Teams Metal Miner Relationship Specialty Start Date End Date Mi Mo MD [address] [place] [phone] PCP - General Family Medicine 10/31/19
--- OUTSIDE RECORDS SUMMARY | 2024-10-03 08:34 | XMS_ITS | Encounter Summary ---
Author Organization [employer] Address [address] [place] [address] [address] [place] [address] Care Team Providers Care Commercial Carpet Installer Name Role Phone Mi Mo MD Primary Care Provider [phone] Reason for Referral * Consultation (Urgent) - Authorized Specialty Diagnoses / Procedures Referred By Contjuarez calzada Referred To Contact Nephrology Diagnoses Primary hypertension Mi Mo MD [address] [place] [address] Phone: tel: fax: [facility] [address], [address] [place] [address] Phone: tel: fax: Referral ID Status Reason Start Date Expiration Date Visits Requested Visits Authorized [id number] Authorized Specialty Services Required 09/18/2024 09/18/2025 1 1 Encounter Details Date Type Department Care Team ([facility] st Contact Info) Description 09/18/2024 Orders Only [facility] [address] [place], [place] [phone] Mi Mo MD [address] [place], [place] [phone] Primary hypertension (Primary Dx) Social History Tobacco Use Types Packs/Day Years [...] as of this encounter Plan of Treatment Scheduled Referrals Name Type Priority Associated Diagnoses Orde r Schedule Referral to Nephrology Outpatient Referral Urgent Primary hypertension Expected: 09/18/2024 (Approximate), Expires: 09/18/2025 documented as of this encounter Visit Diagnoses Diagnosis Primary hypertension- Primary Unspecified essential hypertension documented in this encounter Additional Health Concerns Assessment Noted Time PHQ-9 Depression Total Score: 0 02/10/20 23 11:07 AM EDT documented as of this encounter Care Teams Commercial Carpet Installer Relationship Specialty Start Date End Date Mi Mo MD [address] [place] [address] PCP - General Family Medicine 10/31/19 documented as of this encounter
--- OUTSIDE RECORDS SUMMARY | 2024-10-03 08:35 | XMS_ITS | Encounter Summary ---
Author Organization [employer] Address [address] [place] [address] 7t [place] [address] Care Team Providers Care Visiting Housekeeper Name Role Phone Mi Mo MD Primary Care Provider [phone] Reason for Visit * Reason Comments Pre-op Exam Encounter Details Date Type Department Care Team (Latest Contact Info) Description 09/17/2024 10:15 AM EST Office Visit [facility] MED & PEDS [address] [place], [place] [phone] Mi Mo MD [address] [place] [address] Primary hypertension (Primary Dx); Mild intermittent asthma without complication; Right hip pain; Preop cardiovascular exam Social History Tobacco Use Types Packs/Day Years [...] AM EDT documented as of this encounter Last Filed Vital Signs Vital Sign Reading [...] Mass Index 22.67 09/17/2024 10:45 AM EST documented in this encounter Progress Notes * Kristi Hoang MA - 09/17/2024 10:15 AM EST pre * Mi Mo MD - 09/17/2024 10:15 AM EST Subjective Patient ID: Yue Osei is a 79 y.o. female who presents for Pre-op Exam. Hypertension This is a chronic problem. The current episode started more than 1 year ago. The problem is unchanged. The problem is controlled. Pertinent negatives include no chest pain, headaches, neck pain, palpitations or shortness of breath. Risk factors for coronary artery disease include family history. Past treatments include diuretics. The current treatment provides significant improvement. There are no compliance problems. Review of Systems Constitutional: Negative. Respiratory: Negative. Negative for shortness of breath. Cardiovascular: Negative for chest pain and palpitations. Gastrointestinal: Negative. Genitourinary: Negative. Musculoskeletal: Negative for neck pain. Neurological: Negative for headaches. Objective Physical Exam Constitutional: Appearance: Normal appearance. Cardiovascular: Rate and Rhythm: Normal rate and regular rhythm. Pulses: Normal pulses. Heart sounds: Normal heart sounds. Pulmonary: Effort: Pulmonary effort is normal. Abdominal: General: Abdomen is flat. Neurological: Mental Status: She is alert. Assessment/Plan Diagnoses and all orders for this visit: Primary hypertension Comments: Well controlled No changes in meds Maintain a low-sodium diet (less than 2 grams per day). Maintain a regular cardiovascular exercise program. Advised to maintain a low-fat, low-cholesterol diet. Orders: - Basic Metabolic Panel; Future - Lipid Panel, Standard; Future - Hepatic Function Panel; Future Mild intermittent asthma without complication Comments: Stable No acute attacks Right hip pain Comments: Pt is scheduled for surgery under [place] Preop cardiovascular exam Comments: Pt is at low risk for surgery Preop education given Labs ordered EKG reviewed from 1mnth [place] Orders: - ECG 12 lead documented in this encounter Plan of Treatment Not on file documented as of this encounter Procedures Procedure Name Priority Date/Time Associated Diagnosis Comments HEPATIC FUNCTION PANEL Routine 09/17/2024 11:03 AM EST Primary hypertension LIPID PANEL, STANDARD Routine 09/17/2024 11:03 AM EST Primary hypertension BASIC METABOLIC PANEL Routine 09/17/2024 11:03 AM EST Primary hypertension ECG 12-LEAD Routine 09/17/2024 10:24 AM EST Preop cardiovascular exam documented in this encounter Results * (ABNORMAL) Hepatic Function Panel (09/17/2024 11:03 AM EST) Bilirubin, Total 1.3(H) 0.0 - 1.0 mg/dL [facility] Bilirubin, Direct 0.4 0.0 - 0.5 mg/dL [facility] Aspartate Amino Transferase 32(H) 5 - 31 U/L [facility] Alanine Aminotransferase 11 0 - 31 U/L [facility] Total Protein 7.0 6.5 - 8.0 g/dL [facility] Albumin Level 4.1 3.5 - 5.0 g/dL [facility] Alkaline Phosphatase 93 39 - 117 U/L [facility] Blood Venous blood specimen / Unknown 09/17/2024 11:03 AM EST 09/17/2024 2:20 PM EST us Mi Mo MD LAB BLOOD ORDERABLES Final Resul t [facility] [address] [place] [address] [phone] * (ABNORMAL) Lipid Panel, Standard (09/17/2024 11:03 AM EST) Triglycerides 100 <150 mg/dL [facility] Comment:Desirable Triglyceri de: less than 150 mg/dLBorderline High Triglyceride 150-199 mg/dLHigh Triglyceride: 200-499 mg/dLVery High Triglyceride: greater than or equal to 5OO mg/dL Cholesterol 199 <200 mg/dL [facility] Comment:Desirable Cholestero l: less than 200 mg/dLBorderline High Cholesterol: 200-239 mg/dLHigh Cholesterol: greater than 239 mg/dL LDL Cholesterol Calculated 115(H) <100 mg/dL [facility] Comment:Desirable LDL: less than 100 mg/dLNear Optimal/Above Optimal LDL: 110- 129 mg/dLBorderline High LDL: 130-159 mg/dLHigh LDL: 160-189 mg/dLVery High LDL: greater than or equal to 190 mg/dL HDL Cholesterol 64 >40 mg/dL [facility] Comment:Desirable HDL: great er than 40 mg/dL Note: This HDL assay may give artificially low results in patients with liver disease. Blood Venous blood specimen / Unknown 09/17/2024 11:03 AM EST 09/17/2024 2:20 PM EST Mi Mo MD LAB BLOOD ORDERABLES Final Resul t Performing Organization Address [facility] de Phone Number [facility] [address] [place] [phone] * (ABNORMAL) Basic Metabolic Panel (09/17/2024 11:03 AM EST) Sodium 139 135 - 145 mmol/L [facility] Potassium 3.8 3.3 - 5.1 mmol/L [facility] Chloride 104 96 - 108 mmol/L [facility] Carbon Dioxide 30(H) 22 - 29 mmol/L [facility] Anion Gap 9(L) 12 - 20 [facility] Urea Nitrogen (BUN) 25(H) 9 - 16 mg/dL [facility] Creatinine, Serum 0.81 0.5 - 1.4 mg/dL [facility] Estimated Glomerular Filt Rate >60 [facility] Comment:Chronic Kidney Disea se: Estimated GFR < 60 mL/min/1.70m5Yuzyss Kidney Disease: Estimated GFR < 15 mL/min/1.73m2 Glucose 103 60 - 115 mg/dL [facility] Calcium 9.9 8.4 - 10.2 mg/dL [facility] Blood Venous blood specimen / Unknown 09/17/2024 11:03 AM EST 09/17/2024 2:20 PM EST Mi Mo MD LAB BLOOD ORDERABLES Final Resul t Performing Organization Address [facility]/ZIP Co de Phone Number [facility] [address] [place] [phone] * ECG 12 lead (09/17/2024 10:24 AM EST) Mi Pinzon MD - 09/17/2024 10:24 AM EST NSR No acute Process Mi Mo MD ECG ORDERABLES Final Result documented in this encounter Visit Diagnoses Diagnosis Primary hypertension- Primary Unspecified essential hypertension Mild intermittent asthma without complication Right hip pain Pain in joint, pelvic region and thigh Preop cardiovascular exam Pre-operative cardiovascular examination documented in this encounter Additional Health Concerns Assessment Noted Time PHQ-9 Depression Total Score: 0 02/10/20 23 11:07 AM EDT documented as of this encounter Care Teams Visiting Housekeeper Relationship Specialty Start Date End Date Mi Mo MD [address] [place] [address] PCP - General Family Medicine 10/31/19 documented as of this encounter
--- OUTSIDE RECORDS SUMMARY | 2024-10-03 08:35 | XMS_ITS | Encounter Summary ---
Author Organization [employer] Address [address] [facility] 7t [place] [address] Care Team Providers Care Stripper Machine Operator Name Role Phone Mi Mo MD Primary Care Provider [phone] Encounter Details Date Type Department Care Team (Latest Contact Info) Description 09/17/2024 Travel Social History Tobacco Use Types Packs/Day Years Used Date Smoking Tobacco: Never Smokeless Tobacco: Never Alcohol Use Standard Drinks/Week Comments Never 0 (1 standard drink = 0.6 oz pur e alcohol) Depression Answer Date Recorded Patient Health Questionnaire-9 Score 0 02/09/2023 Housing Stability Answer Date Recorded What is your housing situation today? I have milvianuzhat alicea 07/07/[address] you [...] documented as of this encounter Care Teams Stripper Machine Operator Relationship Specialty Start Date End Date Mi Mo MD [address] [place] [phone] PCP - General Family Medicine 10/31/19 documented as of this encounter
--- OUTSIDE RECORDS SUMMARY | 2024-10-03 08:35 | XMS_ITS | Encounter Summary ---
Author Organization [employer] Address [address] [facility] 7t [place] [address] Care Team Providers Care Microstrategy Architect Developer Name Role Phone Mi Mo MD Primary Care Provider [phone] Reason for Visit * Reason Onset Date Comments Verbal Orders 01/09/2024 Encounter Details Date Type Department Care Team ([facility] Contact Info) Description 01/09/2024 Telephone [facility] MEDICINE [address] [place] [address] Mi Mo MD [address] [place] [address] Verbal Orders Social History Tobacco Use Types Packs/Day Years [...] encounter Miscellaneous Notes * Telephone Encounter - Ky Sales - 01/09/2024 3:10 PM EDT Tc from [facility] the at [facility] requesting verbal orders for home PT 2 a week for 4 weeks and the 1 a week for 4 weeks please call Mate at [phone] documented in this encounter Plan of Treatment Not on file documented as of this encounter Visit Diagnoses Not on filedocumented in this encounter Additional Health Concerns Assessment Noted Time PHQ-9 Depression Total Score: 0 02/10/20 23 11:07 AM EDT documented as of this encounter Care Teams Microstrategy Architect Developer Relationship Specialty Start Date End Date Mi Mo MD [address] [place] [address] PCP - General Family Medicine 10/31/19 documented as of this encounter
--- OUTSIDE RECORDS SUMMARY | 2024-10-03 08:35 | XMS_ITS | Encounter Summary ---
Author Organization [employer] Address [address] [place] [address] 7t [place] [address] Care Team Providers Care Hospice Home Health Aide Name Role Phone Mi Mo MD Primary Care Provider [phone] Reason for Visit * Reason Onset Date Comments Med Refill 2024 Encounter Details Date Type Department Care Team ([facility] st Contact Info) Description 2024 Telephone [facility] MEDICINE [address] [place] [address] Mi Mo MD [address] [place] [address] Med Refill Social History Tobacco Use Types Packs/Day Years [...] encounter Miscellaneous Notes * Telephone Encounter - Lacie Darling LPN - 2024 2:36 PM EDT Medications were sent to [id number] on 11/24/23 #90 with 3 refills. * Telephone Encounter - Judith Joy - 2024 2:32 PM EDT TC from pt requesting medication refill. Medications needing refill : hydroCHLOROthiazide (HYDRODiuril) 25 MG tablet levothyroxine (Synthroid, Levoxyl) 50 MCG tablet To be sent to: [facility][id number] - [place] - [address] [facility] [place] documented in this encounter Plan of Treatment Not on file documented as of this encounter Visit Diagnoses Not on filedocumented in this encounter Additional Health Concerns Assessment Noted Time PHQ-9 Depression Total Score: 0 02/10/20 23 11:07 AM EDT documented as of this encounter Care Teams Hospice Home Health Aide Relationship Specialty Start Date End Date Mi Mo MD [address] [place] [address] PCP - General Family Medicine 10/31/19 documented as of this encounter
--- OUTSIDE RECORDS SUMMARY | 2024-10-03 08:35 | XMS_ITS | Encounter Summary ---
Author Organization [employer] Address [address] [place] [address] 7t [place] [address] Care Team Providers Care Wood Ski Maker Name Role Phone Mi Mo MD Primary Care Provider [phone] Reason for Visit * Reason Onset Date Comments verbal order 01/11/2024 Encounter Details Date Type Department Care Team ([facility] Contact Info) Description 01/11/2024 Telephone [facility] CHC MED & PEDS [address] [place], [place] [phone] Mi Mo MD [address] [place] [address] verbal order Social History Tobacco Use Types Packs/Day Years [...] encounter Miscellaneous Notes * Telephone Encounter - Wing Muriel RN - 01/12/2024 11:57 AM EDT Tc to Cristiane and relayed PCP agreement for verbal order. Cristiane verbalized understanding and agreement with plan. * Telephone Encounter - Mi Mo MD - 01/12/2024 11:18 AM EDT OK * Telephone Encounter - Wing Muriel RN - 01/12/2024 10:35 AM EDT Please advise[facility], PT,OT, durable medical equipment repairer, Cristiane states that they expect this to go for a full episode which is 60 days. Theseorders are to help pt after recent hip replacement. Thank you in advance. * Telephone Encounter - Caitie Rodriguez - 01/11/2024 4:16 PM EDT Tc from [facility] with [facility] requesting verbal order for start of care. Please contact cristiane at [phone] documented in this encounter Plan of Treatment Not on file documented as of this encounter Visit Diagnoses Not on filedocumented in this encounter Additional Health Concerns Assessment Noted Time PHQ-9 Depression Total Score: 0 02/10/20 23 11:07 AM EDT documented as of this encounter Care Teams Wood Ski Maker Relationship Specialty Start Date End Date Mi Mo MD [address] [place] [address] PCP - General Family Medicine 10/31/19 documented as of this encounter
--- OUTSIDE RECORDS SUMMARY | 2024-10-03 08:35 | XMS_ITS | Encounter Summary ---
Author Organization [employer] Address [address] [facility] [address] 7[address] [place] [address] Care Team Providers Care Semi Automatic Sewing Machine Operator Name Role Phone Mi Mo MD Primary Care Provider [phone] Encounter Details Date Type Department Care Team (Late st Contact Info) Description 09/18/2024 Orders Only [facility] CHC MED & PEDS [address] [place] [address] Provider, MD [place] Social History Tobacco Use Types Packs/Day Years [...] Procedure Name Priority Date/Time Associated Diagnosis Comments ECG 12-LEAD Routine 08/20/2024 9:15 AM EST documented in this encounter Results * ECG 12 lead (08/20/2024 9:15 AM EST) us Historical Provider ECG ORDERABLES Final Res ult documented in this encounter Visit Diagnoses Not on filedocumented in this encounter Additional Health Concerns Assessment Noted Time PHQ-9 Depression Total Score: 0 02/10/20 23 11:07 AM EDT documented as of this encounter Care Teams Semi Automatic Sewing Machine Operator Relationship Specialty Start Date End Date Mi Mo MD [address] [place] [address] PCP - General Family Medicine 10/31/19 documented as of this encounter
--- OUTSIDE RECORDS SUMMARY | 2024-10-03 08:35 | XMS_ITS | Encounter Summary ---
Author Organization [employer] Address [address] [place] [address] 7t [place] [address] Care Team Providers Care Finishing Range Supervisor Name Role Phone Mi Mo MD Primary Care Provider [phone] Reason for Visit * Reason Onset Date Comments Chart Prep 09/14/2024 Encounter Details Date Type Department Care Team ([facility] Contact Info) Description 09/14/2024 Telephone [facility] CHC MED & PEDS [address] [place], [place] [phone] Mi Mo MD [address] [place] [address] Chart Prep Social History Tobacco Use Types Packs/Day Years [...] encounter Miscellaneous Notes * Telephone Encounter - Kristi Hoang MA - 09/14/2024 2:58 PM EST Chart Prep Labs: done Images: done Vaccines due: yes Referrals: complete Screenings: none Overdue care gaps: Sbirt, SDOH, PHQ-9 documented in this encounter Plan of Treatment Not on file documented as of this encounter Visit Diagnoses Not on filedocumented in this encounter Additional Health Concerns Assessment Noted Time PHQ-9 Depression Total Score: 0 02/10/20 23 11:07 AM EDT documented as of this encounter Care Teams Finishing Range Supervisor Relationship Specialty Start Date End Date Mi Mo MD [address] [place] [address] PCP - General Family Medicine 10/31/19 documented as of this encounter
--- OUTSIDE RECORDS SUMMARY | 2024-10-03 08:36 | XMS_ITS ---
Author Organization [facility] [place] Address Unknown Allergies, Adverse Reactions, Alerts Substance Reaction Status Noted Date Resolved Date Regadenoson active 12/16/2023 Problems Problem Status Start Date End Date AFTERCARE FOLLOWING JOINT RE PLACEMENT SURGERY (Primary) (Z47.1 - ICD-10-CM) ACTIVE 12/23/2023 PRESENCE OF LEFT ARTIFICIAL HIP JOINT (Z96.642 - ICD-10-CM) ACTIVE 12/23/2023 UNILATERAL PRIMARY OSTEOARTH RITIS, LEFT HIP (M16.12 - ICD-10-CM) ACTIVE 12/23/2023 ESSENTIAL (PRIMARY) HYPERTENSION (I10 - ICD-10-CM) ACT RORY 12/23/2023 GASTRO-ESOPHAGEAL REFLUX DIS EASE WITHOUT ESOPHAGITIS (K21.9 - ICD-10-CM) ACTIVE 12/23/2023 HYPOTHYROIDISM, UNSPECIFIED (E03.9 - ICD-10-CM) ACTIVE 12/23/2023 UNSPECIFIED ASTHMA, UNCOMPLICATED (J45.909 - ICD-10-CM ) ACTIVE 12/23/2023 UNSTEADINESS ON FEET (R26.81 - ICD-10-CM) ACTIVE 12/25/2023 Encounters Encounter Performer Performer Role Encounter Diagnoses Location Date Discharge - Discharged to home or self care - *Home Care Agency To Be Determined - Private home/apt. with home health services [facility] [place] 12/23/2023 04:12 pm EDT - 01/05/2024 12:51 pm EDT Immunizations Vaccine Date TB 1 Step Mantoux (PPD) 12/24/2023 03:00 pm EDT PCV (Prevnar) 20 influenza-Afluria Standard 0.5ml Prefill ed ([id number]) COVID-19, mRNA, LNP-S, bivalent, PF, 30 mcg/0.3 mL dose Social History
--- OUTSIDE RECORDS SUMMARY | 2024-10-03 08:36 | XMS_ITS | Encounter Summary ---
Author Organization [employer] Address [address] [place] [address] 7t [place] [address] Care Team Providers Care Cable Coverer Name Role Phone Mi Mo MD Primary Care Provider [phone] Encounter Details Date Type Department Care Team ([facility] st Contact Info) Description 03/14/2023 Orders Only [facility] CHC MED & PEDS [address] [place], [place] [phone] Mi Mo MD [address] [place], [place] [phone] Social History Tobacco Use Types Packs/Day Years Used Date Smoking Tobacco: Never Assessed Depression Answer Date Recorded Patient Health Questionnaire-9 Score 0 02/09/2023 Depression Answer Date Recorded Patient Health Questionnaire-2 Score 0 02/09/2023 Comments Unknown Sex and Gender Information Value Date Recorded [...] documented as of this encounter Care Teams Cable Coverer Relationship Specialty Start Date End Date Mi Mo MD [address] [place] [address] PCP - General Family Medicine 10/31/19 documented as of this encounter
--- OUTSIDE RECORDS SUMMARY | 2024-10-03 08:36 | XMS_ITS | Encounter Summary ---
Author Organization [employer] Address [address] [place] [address] 7t [place] [address] Care Team Providers Care Child Day Care Provider Name Role Phone Mi Mo MD Primary Care Provider [phone] Reason for Visit * Reason Onset Date Comments Pre op 10/27/2023 Encounter Details Date Type Department Care Team ([facility] Contact Info) Description 10/27/2023 Telephone [facility] CHC MED & PEDS [address] [place], [place] [phone] Mi Mo MD [address] [place] [address] Pre op Social History Tobacco Use Types Packs/Day Years [...] encounter Miscellaneous Notes * Telephone Encounter - Samra Adhikari RN - 10/28/2023 2:40 PM EST Returned call to Gabriela at [facility] regarding message below. Confirmed information below and surgical date. Pre-op scheduled for 11/24/23 with PCP. Gabriela states she will fax preop paperwork and lastnote over and will contact pt to inform. * Telephone Encounter - Pau Leung - 10/27/2023 11:51 AM EST Date of Surgery: 12/21/23 Surgical procedure being done: left total hip Type of anesthesia: general Lab needed: Yes EKG: yes Surgeon's name: Dr gandara Facility name: [facility] Surgeon's office number: [phone] Surgeon's office fax number: [phone] Contact name (person you spoke with): Gabriela from [facility] Last office note from surgeon requested: Yes documented in this encounter Plan of Treatment Not on file documented as of this encounter Visit Diagnoses Not on filedocumented in this encounter Additional Health Concerns Assessment Noted Time PHQ-9 Depression Total Score: 0 02/10/20 23 11:07 AM EDT documented as of this encounter Care Teams Child Day Care Provider Relationship Specialty Start Date End Date Mi oM MD [address] [place] [address] PCP - General Family Medicine 10/31/19 documented as of this encounter
--- NOTE | 2024-10-03 09:25 | MHC.SHP ---
Pre-Procedural Eval Section A - 24 Hr Update-Section A only Date of Service: 10/03/24 The patient is an INPATIENT: No Changes since office visit: No Cold of Flu in the past 2 weeks, No New Medical Problems, No Changes in Medication and No Patient answered all questions The patient has been examined within 24 hours of the surgical procedure. The History & Physical has been completed within 30 days and I have reviewed it.: Yes Section B - Complete if H&P > 30 days Chief Complaint: Unilateral primary osteoarthritis, right hip Allergies: Allergies Allergy/AdvReac Type Severity Reaction Status Date / Time acetaminophen [From Percocet] Allergy Nausea Verified 09/27/24 10:04 oxycodone [From Percocet] Allergy Nausea Verified 09/27/24 10:04 regadenoson AdvReac Intermediate presyncope Verified 09/27/24 10:04 Plan I have reviewed the history and physical and performed a pertinent physical examination on my patient. No changes have occurred unless specified. Time Spent With Patient Time: Total time managing care of this patient today ____ minutes.
[2024-10-03 09:42] LABS: Hematocrit 33.5 % (37.0-47.0); Hemoglobin 11.2 g/dl (12.0-16.0)
[2024-10-03] MEDS: Lactated Ringers 1,000 ML 100 ML IVCONT ×3 (09:45→23:15)
--- NOTE | 2024-10-03 11:14 | ECG_ITS ---
Test Reason : PRE OP Blood Pressure : */* mmHG Vent. Rate : 92 BPM Atrial Rate : 92 BPM P-R Int : 204 ms QRS Dur : 94 ms QT Int : 384 ms P-R-T Axes : 81 -45 6 degrees QTcB Int : 474 ms Normal sinus rhythm Pulmonary disease pattern Left anterior fascicular block Abnormal ECG When compared with ECG of 12-Apr-2008 10:36, MANUAL COMPARISON REQUIRED PREVIOUS ECG IS INCOMPATIBLE Referred By: Laxmi Mendez Electronically Signed By: JOSELINE MA MD
--- NOTE | 2024-10-03 12:41 | P.BOP_ITS ---
Brief Operative Note Date of Service: 10/03/24 Pre-op diagnosis: Right hip OA Post-op diagnosis: same Procedure: Right MAXIMUS Implants: Dale Trident2 52/20 deg liner; Accolade2 #4 132 deg with +2.5 36 ceramic Surgeon: Scooby Marina MD Anesthesia: GETA and local Was an Oracle Manager used for this Procedure?: No Estimated blood loss (mL): 250 IV fluids (mL): 1,000 Pathology: other Condition: stable Disposition: PACU
--- NOTE | 2024-10-03 12:43 | W.PM.OPN ---
Operative Note Operative Note Date of Service: 10/03/24 Narrative: Date of Service: 10/03/24 Pre-op diagnosis: Right hip OA Post-op diagnosis: same Procedure: Right MAXIMUS Implants: Sizerock Trident2 52/20 deg liner; Accolade2 #4 132 deg with +2.5 36 ceramic Surgeon: Scooby Marina MD Anesthesia: GETA and local Was an [employer] Technician used for this Procedure?: No Estimated blood loss (mL): 250 IV fluids (mL): 1,000 Pathology: other Condition: stable Disposition: PACU Procedure in detail: Patient was brought into the operating room and placed in the right lateral decubitus position. All bony prominences were well padded and the limb was prepped and draped in standard sterile fashion. A time-out was called to identify proper site procedure proper surgeon IV antibiotics. I began by making a curvilinear incision over the posterolateral aspect of the greater trochanter. Dissection was taken down to the tensor fascia which was incised in line with the incision and a Charnley retractor was placed. Cautery was used to maintain hemostasis. The hip was internally rotated and the external rotators were identified. The vessels were cauterized and a full-thickness capsular/external rotator layer was developed starting just proximal to the piriformis. This layer was tagged and a dull Hohmann retractor was placed underneath the neck in the hip was dislocated. A neck cut was made 1 cm proximal to the lesser trochanter and the head and neck were removed and measured 48mm on the back table. The head was deformed and eburnated. I then removed the labrum and cauterized the fovea. I started with a 40 reamer and medialized to the inner table. I sequentially reamed up to a size 52 and impacted a 52mm cup at 45 degrees of inclination and 25 degrees of version. I removed extensive acetabular osteophytes circumferentially. I then placed a 20 deg posterior lipped liner and turned my attention to the femur. I identified the piriformis insertion and used this as a starting point for my jonel cutter. The medius tendon was protected with a Hibs retractor. A Charnley awl was inserted in the canal and a curved curette used to remove the lateral bone. I irrigated copiously. I then sequentially broached in the patient's natural version to a size 4 and placed my trial implants. I used a #4/132/+2.5 based on my pre-operative template. I removed all instrumentation and copiously irrigated. I placed my final femoral implant and again took the hip through range of motion and was satisfied with the stability and length. The final +2.5 implant was impacted in place and the hip reduced. I then irrigated copiously and placed 1 g of local tranexamic acid. I performed a capsular closure with 2.0 fiberwire, Javier's fascia with 0 Vicryl, subcuticular with 2-0 Vicryl and the skin with jaylin. Patient was placed into a sterile dressing. Patient was extubated brought to the recovery room in stable condition. There were no known complications.
--- NOTE | 2024-10-03 13:39 | PHA.MEDREC ---
Pharmacy Consult ? Medication Reconciliation Pharmacy has completed the medication reconciliation.checked med rec done by nursing
--- NOTE | 2024-10-03 13:51 | PC.NURSE ---
Godfrey message from [employer]. Patient had atrial fibrillation in the OR for a couple of minutes, EKG was done in the OR and she was sinus rhythm by then, she?s been in sinus rhythm out here. She was giving a dose of labetalol in the OR. For me and Pacu for first blood pressure was 117, then 15 minutes later she dropped into the 60s, I paid MANAGER ROOFING to the bedside and she gave her one dose of ephedrine IV, she has bumped up her pressure since then, currently 141/51. She has been by several times to check on the patient, and her pressures have maintained 130s to 140s Over the last half hour- I gave her a 500 bolus at the time and put her in Trendelenburg position. She is on the bedpan now voiding, She denies pain, is otherwise stable at this time. Oriented times three.
--- NOTE | 2024-10-03 15:11 | P.CONHOSP_ITS ---
History of Present Illness Data of Consult Service Date: 10/03/24 Primary Care Provider: Mi Mo MD HPI 79-year-old woman with a history of hypertension, osteoarthritis admitted by Orthopedic surgery for hip fracture. Surgery was unremarkable. Patient has been able to drink liquids without any nausea or vomiting. Patient reports minimal amount of pain at this time. Review of Systems 2 Review of Systems: Denies any recent fever chills or decrease in appetite respiratory denies any shortness of breath or cough cardiovascular denies chest pain gastrointestinal denies any dysphagia abdominal pain nausea vomiting or diarrhea genitourinary denies any dysuria frequency or hematuria musculoskeletal total hip arthroplasty neuropsych denies any weakness or seizures all other systems reviewed are negative [facility] Medical History Arthritis GERD (gastroesophageal reflux disease) Asthma Thyroid disease HTN (hypertension) Surgical History H/O colonoscopy S/P total left hip arthroplasty (12/21/23) History of surgery on wrist History of ankle surgery Social History Household Members: Children Housing: House Are you a primary direct care specialist to a significant other at home: No Do you presently have visiting nurse or other home services: No Alcohol intake: current Alcohol intake frequency: holidays/special occasions only Alcohol type: hard liquor Patient Tobacco Use Status: Never used Tobacco Use of substances other than those prescribed or required for medical reasons: No Currently Displaying Signs/Symptoms of Drug Intoxication Withdrawal: No Have you been hit, kicked, punched, or otherwise hurt by someone within the past year? If so, by whom?: No Do you feel safe in your current relationship?: No Current Relationship Are you DNR?: No Advance Directives: No Advance Directives Information Provided: Yes Advance Directives on File: No Do you have a plan to hurt others: No Plan Recently lost weight without trying: No Eating poorly because of decreased appetite: No Nutrition Risks: No Nutritional Risk Patient : No : No Poor oral hygiene: No service: No Meds Allergies Allergy/AdvReac Type Severity Reaction Status Date / Time acetaminophen [From Percocet] Allergy Nausea Verified 10/03/24 09:47 oxycodone [From Percocet] Allergy Nausea Verified 10/03/24 09:47 regadenoson AdvReac Intermediate presyncope Verified 10/03/24 09:47 Active Medications: Current Medications Acetaminophen (Acetaminophen 325 Mg Tablet) 650 mg PO Q6H PRN PRN Reason: Pain, Mild 1-3,fever,headache Albuterol Sulfate (Albuterol Sulfate 90 Mcg 8 Gm Inhaler) 2 puff INHALE Q6H PRN PRN Reason: Shortness Of Breath Or Wheezing Celecoxib (Celecoxib 200 Mg Capsule) 200 mg PO BID [facility] Docusate Sodium (Docusate Sodium 100 Mg Capsule) 100 mg PO BID PRN PRN Reason: Constipation Enoxaparin Sodium (Enoxaparin Sodium 40 Mg/0.4 Ml Syringe) 40 mg SUBCUT Q24H [facility] Hydrochlorothiazide (Hydrochlorothiazide 25 Mg Tablet) 25 mg PO QPM [facility]; Protocol Hydromorphone HCl (Hydromorphone Hcl 0.5 Mg/0.5 Ml Syringe) 0.25 mg IVPUSH Q4H PRN; Protocol PRN Reason: Pain, Severe (Pain Scale 7-10) Lactated Ringer's (Lr) 1,000 mls @ 100 mls/hr IVCONT .Q10H [facility] Cefazolin Sodium/Dextrose (Ancef) 2 gm in 50 mls @ 100 mls/hr IV POSTOP ONE Stop: 10/03/24 15:37 Levothyroxine Sodium (Levothyroxine Sodium 50 Mcg Tablet) 50 mcg PO DAILY [facility] Magnesium Hydroxide (Milk Of Magnesia 30 Ml Oral.Susp) 30 ml PO DAILY PRN PRN Reason: Constipation Multivitamins/Vitamin C (Multivitamin Tablet) 2 tab PO BID [facility] Non-Formulary Medication (Calcium Carbonate) 600 mg PO DAILY [facility] Non-Formulary Medication (Ferrous Sulfate [Iron]) 325 mg PO DAILY [facility] Oxycodone HCl (Oxycodone Hcl Immed Release 5 Mg Tablet) 5 mg PO Q4H PRN PRN Reason: Pain, Moderate(Pain Scale 4-6) Sodium Chloride (0.9 % Sodium Chloride Flush 3 Ml Syringe) 3 ml IVFLUSH QSHIFT [facility] Vitamin D (Cholecalciferol (Vitamin D3) 25 Mcg Tablet) 125 mcg PO DAILY [facility] Home Medications ?Medication ?Instructions ?Recorded ?Confirmed ?Last Taken ?Type albuterol sulfate 90 mcg/actuation 2 puff inhalation Q6H PRN 12/04/20 08/30/24 09/19/23 History aerosol inhaler (ProAir HFA) Shortness Of Breath Or Wheezing hydrochlorothiazide 25 mg tablet 25 mg PO QPM 12/04/20 08/30/24 10/02/24 History levothyroxine 50 mcg tablet 50 mcg PO DAILY 12/04/20 08/30/24 10/02/24 History calcium carbonate 600 mg PO DAILY 12/13/23 08/30/24 09/26/24 History cholecalciferol (vitamin D3) 125 125 mcg PO DAILY 12/13/23 08/30/24 09/26/24 History mcg (5,000 unit) tablet (Vitamin D3) vitamins A,C,E-[id number]-qzeccw 2,148 2 tab PO BID 12/13/23 08/30/24 09/26/24 History mcg-113 mg-45 mg-17.4 mg tablet (PreserVision AREDS) aspirin 81 mg tablet,delayed 81 mg PO BEDTIME 08/30/24 08/30/24 09/26/24 History release (Adult Low Dose Aspirin) docusate sodium 100 mg capsule 100 mg PO BID PRN Constipation 08/30/24 08/30/24 09/26/24 History ferrous sulfate 325 mg (65 mg 325 mg PO DAILY 08/30/24 08/30/24 09/26/24 History iron) tablet (iron) Physical Exam 2 Vital Signs and Narrative: Vital Signs: Last Vital Signs Temp 97.9 F 10/03/24 13:58 Pulse 65 10/03/24 14:30 Resp 16 10/03/24 14:30 BP 129/57 L 10/03/24 14:30 Pulse Ox 98 10/03/24 14:30 O2 Del Method Room Air 10/03/24 14:30 O2 Flow Rate 4 10/03/24 13:28 BMI result Body Mass Index 22.1 Appearing in no acute distress head is normocephalic atraumatic eyes pupils are PERRLA sclera is anicteric mouth throat mucous membranes are intact and moist neck is supple no lymphadenopathy, no JVD noted lung sounds are clear to auscultation heart regular rate rhythm, clear S1, S2 positive bowel sounds, abdomen is soft, nontender neuro patient is alert x3, no focal deficits Surgical dressing intact, surgical incision not visualized to right hip Results Labs 10/06/24 06:02 10/06/24 06:02 Assessment and Plan (1) HTN (hypertension): Status: Acute Plan 79-year-old woman admitted by Orthopedic surgery and is status post right total hip arthroplasty Right total hip arthroplasty Management as per surgical team Pain management Hypothyroidism Continue levothyroxine Hypertension Continue hydrochlorothiazide Iron-deficiency anemia Continue iron supplementation DVT prophylaxis with Lovenox Medical consultation complete. Will sign off.
--- NOTE | 2024-10-03 16:01 | PC.NURSE ---
pt does not want to ambulate at this time, will re-approach.
[2024-10-03] MEDS: ceFAZolin Sodium/Dextrose,Iso 2 GM/50 ML PIGGYBACK IV (16:46)
--- NOTE | 2024-10-03 18:23 | PC.NURSE ---
Pt voiding on the commode. Syncope episode, Back to bed, UG DESIGNER called, see note. Ortho and Hospitalist Notified. See Orders.
--- NOTE | 2024-10-03 18:24 | PC.NURSE ---
EKG, 500ml Bolus of LR.
--- NOTE | 2024-10-03 18:25 | ECG_ITS ---
Test Reason : Syncope Blood Pressure : */* mmHG Vent. Rate : 73 BPM Atrial Rate : * BPM P-R Int : * ms QRS Dur : 84 ms QT Int : 426 ms P-R-T Axes : * -40 9 degrees QTcB Int : 469 ms Poor data quality Possible Normal sinus rhythm Left axis deviation Low voltage QRS Possible Anterolateral infarct , age undetermined Abnormal ECG When compared with ECG of 03-Oct-2024 11:10, Poor data quality in current ECG precludes serial comparison Referred By: Froy Rodriguez Electronically Signed By: JOSELINE MA MD
--- NOTE | 2024-10-03 18:25 | PM.EVENT ---
Event Note Date of Service: 10/03/24 Event Note: Rapid response called secondary to symptomatic hypotension. Patient immediate postop total hip replacement voiding on commode became pale diaphoretic without overt syncope. Placed back to bed in Trendelenburg. First initial pressure 60/40. After Trendelenburg... 120s over 60s. We will give 500 cc lactated ringer bolus and check EKG. Patient back to baseline and conversing shortly after incident. We will follow clinically Time Spent With Patient Time: Total time managing care of this patient today ____ minutes.
--- NOTE | 2024-10-03 18:33 | PC.NURSE ---
MD Rodriguez delivered Abnormal EKG
--- NOTE | 2024-10-03 18:46 | PC.NURSE ---
Report given to casino shift manager RN
[2024-10-03 19:34] LABS: MANUAL DIFF FLAG NO
[2024-10-03 19:36] LABS: Basophils Percent Auto 0.2 % (0-2); Imm Gran Abs Auto 0.03 X10*3/uL (0.00-0.03); Imm Gran Pct Auto 0.4 % (0.0-0.4); Lymphocytes Absolute Auto 0.9 X10*3/uL (1.2-4.9); Mean Corpuscular HGB Conc 33.3 g/dl (31.0-35.0); Mean Corpuscular Hemoglobin 31.9 pg (27.0-33.0); Mean Corpuscular Volume 95.7 fL (80.0-98.0); Mean Platelet Volume 9.3 fL (9.4-12.3); Monocytes Absolute Auto 0.6 X10*3/uL (0.1-1.2); Monocytes Percent Auto 7.4 % (2-11); Neutrophils Absolute Auto 6.7 x10*3/uL (2.0-8.3); Platelet Count 208 X10*3/uL (160-400); Red Blood Count 3.45 X10*6/uL (4.20-5.50); Red Cell Distribution Width 12.5 % (11.0-16.0); White Blood Count 8.3 X10*3/uL (4.8-10.8)
[2024-10-03 19:51] LABS: Alanine Aminotransferase 13 U/L (0-31); Albumin Level 3.7 g/dL (3.5-5.0); Alkaline Phosphatase 102 U/L (39-117); Anion Gap 11 (12-20); Aspartate Amino Transferase 27 U/L (5-31); Bilirubin Total 1.2 mg/dL (0.0-1.0); Blood Urea Nitrogen 17 mg/dL (9-16); Calcium 9.1 mg/dL (8.4-10.2); Carbon Dioxide 26 mmol/L (22-29); Chloride 103 mmol/L (96-108); Creatinine Clr Calc Pharmacy 48.4; Estimated Glomerular Filt Rate > 60; Glucose Random 181 mg/dL (60-115); Sodium 136 mmol/L (135-145); Total Protein 6.5 g/dL (6.5-8.0)
[2024-10-03 19:58] LABS: Troponin-I High Sensitivity 8.4 ng/L (<3.5-17.0)
[2024-10-03] MEDS: Multivitamin TABLET 2 TAB PO (21:59)
[2024-10-03] MEDS: Celecoxib 200 MG CAPSULE PO (21:59)
[2024-10-03] MEDS: hydroCHLOROthiazide 25 MG TABLET PO (22:00)
[2024-10-04] VITALS (8 sets, daily range): BP systolic 93–126; BP diastolic 52–59; PULSE 90–103; RESP 16–18; TEMP 36.9–37.6; O2SAT 94–99
[2024-10-04] MEDS: Levothyroxine Sodium 50 MCG TABLET PO (06:20)
[2024-10-04 07:53] LABS: MANUAL DIFF FLAG NO
[2024-10-04] MEDS: Ferrous Sulfate 324 MG TABLET.DR PO (07:58)
[2024-10-04 07:59] LABS: Basophils Percent Auto 0.2 % (0-2); Hematocrit 26.3 % (37.0-47.0); Hemoglobin 8.8 g/dl (12.0-16.0); Imm Gran Abs Auto 0.02 X10*3/uL (0.00-0.03); Imm Gran Pct Auto 0.3 % (0.0-0.4); Lymphocytes Absolute Auto 1.7 X10*3/uL (1.2-4.9); Lymphocytes Percent Auto 26.4 % (20-40); Mean Corpuscular HGB Conc 33.5 g/dl (31.0-35.0); Mean Corpuscular Hemoglobin 31.7 pg (27.0-33.0); Mean Corpuscular Volume 94.6 fL (80.0-98.0); Mean Platelet Volume 9.4 fL (9.4-12.3); Monocytes Absolute Auto 0.8 X10*3/uL (0.1-1.2); Monocytes Percent Auto 13.2 % (2-11); Neutrophils Absolute Auto 3.8 x10*3/uL (2.0-8.3); Neutrophils Percent Auto 59.9 % (45-73); Platelet Count 169 X10*3/uL (160-400); Red Blood Count 2.78 X10*6/uL (4.20-5.50); Red Cell Distribution Width 12.5 % (11.0-16.0); White Blood Count 6.4 X10*3/uL (4.8-10.8)
[2024-10-04] MEDS: Cholecalciferol (Vitamin D3) 25 MCG TABLET 125 MCG PO (07:59)
[2024-10-04] MEDS: Multivitamin TABLET 2 TAB PO ×2 (07:59→19:57)
[2024-10-04] MEDS: Calcium Oyster Shell Elemental 500 MG TABLET PO (07:59)
[2024-10-04] MEDS: Celecoxib 200 MG CAPSULE PO ×2 (07:59→19:57)
[2024-10-04 08:12] LABS: Anion Gap 10 (12-20); Blood Urea Nitrogen 20 mg/dL (9-16); Calcium 8.5 mg/dL (8.4-10.2); Carbon Dioxide 27 mmol/L (22-29); Chloride 104 mmol/L (96-108); Creatinine Clr Calc Pharmacy 50.9; Estimated Glomerular Filt Rate > 60; Glucose Fasting 120 mg/dL (60-99); Potassium 4.1 mmol/L (3.3-5.1); Sodium 137 mmol/L (135-145)
[2024-10-04] MEDS: Lactated Ringers 1,000 ML 100 ML IVCONT (08:19)
[2024-10-04 08:20] LABS: Troponin-I High Sensitivity 7.4 ng/L (<3.5-17.0)
--- NOTE | 2024-10-04 08:58 | PM.PNORT ---
Subjective Subjective Date of Service: 10/04/24 Interval history: POD1 s/p right total hip arthroplasty Patient is resting in the recliner comfortably Overnight the patient was using the commode to void and had a syncopal episode -a rapid response was called -EKG obtained -troponins obtained -Dr. Rodriguez following Pain is managed No additional complaints Physical Exam Vital Signs: Vital Signs: Last Vital Signs Temp 99.7 F 10/04/24 07:27 Pulse 103 H 10/04/24 08:19 Resp 16 10/04/24 07:27 BP 111/54 L 10/04/24 08:19 Pulse Ox 94 10/04/24 08:19 O2 Del Method Room Air 10/04/24 07:27 O2 Flow Rate 4 10/03/24 13:28 BMI result Body Mass Index 21.0 Const: General: cooperative, healthy appearing and no acute distress Resp: Effort & Inspection: normal respiratory effort and able to speak in complete sentences Cardio: Rate: regular rate Peripheral pulses: Peripheral pulses 2+ throughout GI: Palpation (GI): Soft to palpation Skin: Lesions: no lesions Rashes: no rashes Extrem: Other: rt hip dressing is c/d/i. Able to dorsi/plantar flex. Calf is supple and nontender. Sensation intact. Pedal pulse intact. Procedures Date of Service Date of Service: 10/04/24 Progress Note: A&P Assessment and plan (1) Status post total hip replacement, right: Status: Acute Assessment and Plan: Continue pain mgmnt Begin Lovenox for dvt ppx as there was a question the patient had a bout of AFib preoperatively Overnight the patient was using the commode to void and had a syncopal episode -a rapid response was called -EKG obtained -troponins obtained -Dr. Rodriguez following begin PT/OT for right total hip arthroplasty - posterior precautions Dispo planning-Pending PT eval, pain mgmnt, medicine workup status post syncopal episode, rehab placement Time Spent With Patient Time: Total time managing care of this patient today ____ minutes. Quality Stroke Does the patient have a stroke diagnosis?: No VTE Prior VTE?: No VTE Risk Level:: Medical - moderate - high VTE Device Contraindication: N/A - Device Ordered VTE Drug Contraindication: N/A - Med Ordered
--- NOTE | 2024-10-04 11:01 | HO.POSTANES ---
Post Anesthesia Evaluation Post Anesthesia Evaluation Date of Service: 10/04/24 Vital Signs: Vital Signs Temp Pulse Resp BP Pulse Ox O2 Del Method 10/04/24 08:19 103 H 111/54 L 94 10/04/24 07:27 99.7 F 103 H 16 111/54 L 94 Room Air 10/04/24 03:16 98.6 F 100 16 126/59 L 96 Room Air 10/03/24 23:25 98.8 F 78 16 139/62 94 Room Air Anesthesia: General Mental Status: Awake Pain Control: Satisfactory Nausea/Vomiting: None Hydration: Adequate Anesthesia-Related Issues: No Anes. Related Issues
[2024-10-04] MEDS: Enoxaparin Sodium 40 MG/0.4 ML SYRINGE SUBCUT (11:40)
--- NOTE | 2024-10-04 13:07 | MHC.CM.PN ---
IMM 10/04/24 S/P R MAXIMUS Lives with her daughter. She uses a walker. She receives assistance with ADLs from Margarita Huertas thru [facility]. PCP Mi Mo. A new HCP has been documented and scanned into the EMR. Patient signed the [facility] designation of authorized employer relations representative form. STR preference is [facility] Home health preference is [facility]. Both have been referred. [facility] via BLS. Home with [facility] after STR.
--- NOTE | 2024-10-04 13:53 | P.PNIM_ITS ---
Subjective Subjective Date of Service: 10/04/24 Interval History: No further episodes of hypotension overnight. Review of Systems Denies chest pain Denies shortness of breath Denies nausea vomiting diarrhea Denies fever chills Physical Exam 2 Vital Signs: Vital Signs: Last Vital Signs Temp 98.7 F 10/04/24 12:30 Pulse 91 10/04/24 13:30 Resp 16 10/04/24 12:30 BP 93/52 L 10/04/24 13:30 Pulse Ox 94 10/04/24 13:30 O2 Del Method Room Air 10/04/24 12:30 O2 Flow Rate 4 10/03/24 13:28 BMI result Body Mass Index 21.0 Const: Other: Awake alert no acute distress Resp: Other: Clear to auscultation bilaterally no rales rhonchi or wheezes Cardio: Other: No S4; positive S1-S2; no S3 murmurs rubs or gallops regular rate and rhythm GI: Other: Soft nontender nondistended normoactive bowel sounds Extrem: Other: No edema bilaterally Objective Data Active Medications Acetaminophen (Acetaminophen 325 Mg Tablet) 650 mg PO Q6H PRN PRN Reason: Pain, Mild 1-3,fever,headache Albuterol Sulfate (Albuterol Sulfate 90 Mcg 8 Gm Inhaler) 2 puff INHALE Q6H PRN PRN Reason: Shortness Of Breath Or Wheezing Calcium Carbonate (Calcium Oyster Shell Elemental 500 Mg Tablet) 500 mg PO DAILY [facility] Last Admin: 10/04/24 07:59 Dose: 500 mg Documented By: JEROME Celecoxib (Celecoxib 200 Mg Capsule) 200 mg PO BID [facility] Last Admin: 10/04/24 07:59 Dose: 200 mg Documented By: JEROME Docusate Sodium (Docusate Sodium 100 Mg Capsule) 100 mg PO BID PRN PRN Reason: Constipation Enoxaparin Sodium (Enoxaparin Sodium 40 Mg/0.4 Ml Syringe) 40 mg SUBCUT Q24H [facility] Last Admin: 10/04/24 11:40 Dose: 40 mg Documented By: JEROME Ferrous Sulfate (Ferrous Sulfate 324 Mg Tablet.) 324 mg PO DAILY [facility] Last Admin: 10/04/24 07:58 Dose: 324 mg Documented By: JEROME Hydrochlorothiazide (Hydrochlorothiazide 25 Mg Tablet) 25 mg PO BEDTIME [facility]; Protocol Last Admin: 10/03/24 22:00 Dose: 25 mg Documented By: CHECO Hydromorphone HCl (Hydromorphone Hcl 0.5 Mg/0.5 Ml Syringe) 0.25 mg IVPUSH Q4H PRN; Protocol PRN Reason: Pain, Severe (Pain Scale 7-10) Levothyroxine Sodium (Levothyroxine Sodium 50 Mcg Tablet) 50 mcg PO DAILY@0600 [facility] Last Admin: 10/04/24 06:20 Dose: 50 mcg Documented By: CHECO Magnesium Hydroxide (Milk Of Magnesia 30 Ml Oral.Susp) 30 ml PO DAILY PRN PRN Reason: Constipation Multivitamins/Vitamin C (Multivitamin Tablet) 2 tab PO BID [facility] Last Admin: 10/04/24 07:59 Dose: 2 tab Documented By: JEROME Oxycodone HCl (Oxycodone Hcl Immed Release 5 Mg Tablet) 5 mg PO Q4H PRN PRN Reason: Pain, Moderate(Pain Scale 4-6) Sodium Chloride (0.9 % Sodium Chloride Flush 3 Ml Syringe) 3 ml IVFLUSH QSHIFT [facility] Last Admin: 10/04/24 07:22 Dose: Not Given Documented By: JEROME Non-Admin Reason: IV Running Vitamin D (Cholecalciferol (Vitamin D3) 25 Mcg Tablet) 125 mcg PO DAILY [facility] Last Admin: 10/04/24 07:59 Dose: 125 mcg Documented By: JEROME Labs 10/04/24 07:39 10/04/24 07:39 Labs: Laboratory Results - last 24 hr 10/03/24 10/04/24 19:25 07:39 MCV 95.7 94.6 MCH 31.9 31.7 MCHC 33.3 33.5 RDW 12.5 12.5 Plt Count 208 169 MPV 9.3 L 9.4 Immature Gran % (Auto) 0.4 0.3 Neut % (Auto) 81.0 H 59.9 Lymph % (Auto) 11.0 L 26.4 [place] % (Auto) 7.4 13.2 H Eos % (Auto) 0.0 0.0 Baso % (Auto) 0.2 0.2 Lymph # (Auto) 0.9 L 1.7 [place] # (Auto) 0.6 0.8 Eos # (Auto) 0.0 0.0 Baso # (Auto) 0.0 0.0 Abs Immat Gran (auto) 0.03 0.02 Absolute Neuts (auto) 6.7 3.8 Absolute Nucleated RBC 0.000 0.000 Nucleated RBC % (auto) 0.0 0.0 Anion Gap 11 L 10 L Estim Creat Clear Calc 48.4 50.9 Estimated GFR > 60 > 60 Random Glucose 181 H Fasting Glucose 120 H Calcium 9.1 D 8.5 D Total Bilirubin 1.2 H AST 27 ALT 13 Alkaline Phosphatase 102 Troponin I High Sens 8.4 7.4 Total Protein 6.5 Albumin 3.7 Assessment and Plan (1) Status post total hip replacement, right: Status: Acute Plan 79-year-old woman admitted by Orthopedic surgery and is status post right total hip arthroplasty. Rapid response called for brief episode of AFib with rapid ventricular response and hypotension which responded to fluids and Trendelenburg. No further events overnight 1.Right total hip arthroplasty -as per surgical team 2. AFib with RVR -examines back in sinus rhythm at this time -follow clinically 3.Hypothyroidism -continue levothyroxine 4. Acute on chronic anemia (iron deficiency at baseline) -drop likely secondary to hemodilution -check CBC in a.m. -continue iron supplementation DVT prophylaxis with Lovenox Medical consultation complete. Will sign off. Quality Stroke Does the patient have a stroke diagnosis?: No VTE Prior VTE?: No VTE Risk Level:: Medical - moderate - high VTE Device Contraindication: N/A - Device Ordered VTE Drug Contraindication: N/A - Med Ordered
[2024-10-04] MEDS: hydroCHLOROthiazide 25 MG TABLET PO (19:57)
[2024-10-04] MEDS: 0.9 % Sodium Chloride Flush 3 ML SYRINGE IVFLUSH (19:58)
[2024-10-04] MEDS: Acetaminophen 325 MG TABLET 650 MG PO (20:03)
[2024-10-05 03:23] VITALS: BP 99/50; PULSE 82; RESP 18; TEMP 36.3; O2SAT 97
[2024-10-05] MEDS: Levothyroxine Sodium 50 MCG TABLET PO (06:01)
[2024-10-05 06:03] LABS: MANUAL DIFF FLAG NO
[2024-10-05 06:11] LABS: Basophils Percent Auto 0.5 % (0-2); Eosinophils Absolute Auto 0.1 X10*3/uL (0.0-0.4); Eosinophils Percent Auto 1.6 % (0-4); Hematocrit 25.4 % (37.0-47.0); Hemoglobin 8.4 g/dl (12.0-16.0); Imm Gran Abs Auto 0.02 X10*3/uL (0.00-0.03); Imm Gran Pct Auto 0.3 % (0.0-0.4); Lymphocytes Absolute Auto 1.7 X10*3/uL (1.2-4.9); Lymphocytes Percent Auto 28.4 % (20-40); Mean Corpuscular HGB Conc 33.1 g/dl (31.0-35.0); Mean Corpuscular Hemoglobin 31.7 pg (27.0-33.0); Mean Corpuscular Volume 95.8 fL (80.0-98.0); Mean Platelet Volume 9.6 fL (9.4-12.3); Monocytes Absolute Auto 0.7 X10*3/uL (0.1-1.2); Monocytes Percent Auto 10.9 % (2-11); Neutrophils Absolute Auto 3.6 x10*3/uL (2.0-8.3); Neutrophils Percent Auto 58.3 % (45-73); Platelet Count 147 X10*3/uL (160-400); Red Blood Count 2.65 X10*6/uL (4.20-5.50); Red Cell Distribution Width 12.5 % (11.0-16.0); White Blood Count 6.1 X10*3/uL (4.8-10.8)
[2024-10-05 06:21] LABS: Anion Gap 10 (12-20); Blood Urea Nitrogen 28 mg/dL (9-16); Calcium 8.6 mg/dL (8.4-10.2); Carbon Dioxide 30 mmol/L (22-29); Chloride 102 mmol/L (96-108); Creatinine Clr Calc Pharmacy 47.1; Estimated Glomerular Filt Rate > 60; Glucose Fasting 104 mg/dL (60-99); Potassium 4.2 mmol/L (3.3-5.1); Sodium 138 mmol/L (135-145)
[2024-10-05 07:33] VITALS: BP 99/50; PULSE 82; O2SAT 97
[2024-10-05 07:58] VITALS: BP 108/53; PULSE 95; RESP 18; TEMP 36.5; O2SAT 96
[2024-10-05] MEDS: Multivitamin TABLET 2 TAB PO ×2 (08:59→20:52)
[2024-10-05] MEDS: Calcium Oyster Shell Elemental 500 MG TABLET PO (08:59)
[2024-10-05] MEDS: Ascorbic Acid 500 MG TABLET PO (08:59)
[2024-10-05] MEDS: Ferrous Sulfate 324 MG TABLET.DR PO (08:59)
[2024-10-05] MEDS: Cholecalciferol (Vitamin D3) 25 MCG TABLET 125 MCG PO (08:59)
[2024-10-05] MEDS: Celecoxib 200 MG CAPSULE PO ×2 (08:59→20:52)
--- NOTE | 2024-10-05 08:59 | PM.PNORT ---
Subjective Subjective Date of Service: 10/05/24 Interval history: POD2 s/p right total hip arthroplasty Patient is resting in the recliner comfortably No acute events overnight No further syncopal episodes or bouts of dizziness Pain is managed No additional complaints Physical Exam Vital Signs: Vital Signs: Last Vital Signs Temp 97.7 F 10/05/24 07:58 Pulse 95 10/05/24 07:58 Resp 18 10/05/24 07:58 BP 108/53 L 10/05/24 07:58 Pulse Ox 96 10/05/24 07:58 O2 Del Method Room Air 10/05/24 07:58 O2 Flow Rate 4 10/03/24 13:28 BMI result Body Mass Index 21.0 Const: General: cooperative, healthy appearing and no acute distress Resp: Effort & Inspection: normal respiratory effort and able to speak in complete sentences Cardio: Rate: regular rate Peripheral pulses: Peripheral pulses 2+ throughout GI: Palpation (GI): Soft to palpation Skin: Lesions: no lesions Rashes: no rashes Extrem: Other: rt hip dressing is c/d/i. Able to dorsi/plantar flex. Calf is supple and nontender. Sensation intact. Pedal pulse intact. Procedures Date of Service Date of Service: 10/05/24 Progress Note: A&P Assessment and plan (1) Status post total hip replacement, right: Status: Acute Plan 1. Status post right total hip arthroplasty DOS 10/03/2024 Continue pain management Continue Lovenox for DVT prophylaxis Continue monitoring of H&H Per hospitalist recommendation, patient will continue with iron supplementation and conservative measures for managing her H&H as compared to transfusion Continue PT/OT Dispo planning-PT/OT eval, insurance authorization, pain management, medical clearance Time Spent With Patient Time: Total time managing care of this patient today ____ minutes. Quality Stroke Does the patient have a stroke diagnosis?: No VTE Prior VTE?: No VTE Risk Level:: Medical - moderate - high VTE Device Contraindication: N/A - Device Ordered VTE Drug Contraindication: N/A - Med Ordered
[2024-10-05] MEDS: 0.9 % Sodium Chloride Flush 3 ML SYRINGE IVFLUSH ×2 (09:05→20:57)
[2024-10-05] MEDS: Enoxaparin Sodium 40 MG/0.4 ML SYRINGE SUBCUT (12:12)
[2024-10-05 13:38] VITALS: BP 108/53; PULSE 95; O2SAT 96
--- NOTE | 2024-10-05 14:20 | P.PNIM_ITS ---
Subjective Subjective Date of Service: 10/05/24 Interval History: No acute issues overnight. No further episodes of hypotension Review of Systems Denies chest pain Denies shortness of breath Denies nausea vomiting diarrhea Denies fever chills Physical Exam 2 Vital Signs: Vital Signs: Last Vital Signs Temp 97.7 F 10/05/24 07:58 Pulse 95 10/05/24 13:38 Resp 18 10/05/24 07:58 BP 108/53 L 10/05/24 13:38 Pulse Ox 96 10/05/24 13:38 O2 Del Method Room Air 10/05/24 07:58 O2 Flow Rate 4 10/03/24 13:28 BMI result Body Mass Index 21.0 Const: Other: Awake alert no acute distress Resp: Other: Clear to auscultation bilaterally no rales rhonchi or wheezes Cardio: Other: No S4; positive S1-S2; no S3 murmurs rubs or gallops regular rate and rhythm GI: Other: Soft nontender nondistended normoactive bowel sounds Extrem: Other: No edema bilaterally Objective Data Active Medications Acetaminophen (Acetaminophen 325 Mg Tablet) 650 mg PO Q6H PRN PRN Reason: Pain, Mild 1-3,fever,headache Last Admin: 10/04/24 20:03 Dose: 650 mg Documented By: KRISTINA Albuterol Sulfate (Albuterol Sulfate 90 Mcg 8 Gm Inhaler) 2 puff INHALE Q6H PRN PRN Reason: Shortness Of Breath Or Wheezing Ascorbic Acid (Ascorbic Acid 500 Mg Tablet) 500 mg PO DAILY [facility] Last Admin: 10/05/24 08:59 Dose: 500 mg Documented By: BEBETO Calcium Carbonate (Calcium Oyster Shell Elemental 500 Mg Tablet) 500 mg PO DAILY [facility] Last Admin: 10/05/24 08:59 Dose: 500 mg Documented By: BEBETO Celecoxib (Celecoxib 200 Mg Capsule) 200 mg PO BID [facility] Last Admin: 10/05/24 08:59 Dose: 200 mg Documented By: BEBETO Docusate Sodium (Docusate Sodium 100 Mg Capsule) 100 mg PO BID PRN PRN Reason: Constipation Enoxaparin Sodium (Enoxaparin Sodium 40 Mg/0.4 Ml Syringe) 40 mg SUBCUT Q24H [facility] Last Admin: 10/05/24 12:12 Dose: 40 mg Documented By: BEBETO Ferrous Sulfate (Ferrous Sulfate 324 Mg Tablet.) 324 mg PO DAILY [facility] Last Admin: 10/05/24 08:59 Dose: 324 mg Documented By: BEBETO Hydrochlorothiazide (Hydrochlorothiazide 25 Mg Tablet) 25 mg PO BEDTIME [facility]; Protocol Last Admin: 10/04/24 19:57 Dose: 25 mg Documented By: KRISTINA Hydromorphone HCl (Hydromorphone Hcl 0.5 Mg/0.5 Ml Syringe) 0.25 mg IVPUSH Q4H PRN; Protocol PRN Reason: Pain, Severe (Pain Scale 7-10) Levothyroxine Sodium (Levothyroxine Sodium 50 Mcg Tablet) 50 mcg PO DAILY@0600 [facility] Last Admin: 10/05/24 06:01 Dose: 50 mcg Documented By: KRISTINA Magnesium Hydroxide (Milk Of Magnesia 30 Ml Oral.Susp) 30 ml PO DAILY PRN PRN Reason: Constipation Multivitamins/Vitamin C (Multivitamin Tablet) 2 tab PO BID [facility] Last Admin: 10/05/24 08:59 Dose: 2 tab Documented By: BEBETO Oxycodone HCl (Oxycodone Hcl Immed Release 5 Mg Tablet) 5 mg PO Q4H PRN PRN Reason: Pain, Moderate(Pain Scale 4-6) Sodium Chloride (0.9 % Sodium Chloride Flush 3 Ml Syringe) 3 ml IVFLUSH QSHIFT [facility] Last Admin: 10/05/24 09:05 Dose: 3 ml Documented By: BEBETO Vitamin D (Cholecalciferol (Vitamin D3) 25 Mcg Tablet) 125 mcg PO DAILY [facility] Last Admin: 10/05/24 08:59 Dose: 125 mcg Documented By: BEBETO Labs 10/05/24 05:57 10/05/24 05:57 Labs: Laboratory Results - last 24 hr 10/05/24 05:57 MCV 95.8 MCH 31.7 MCHC 33.1 RDW 12.5 Plt Count 147 L MPV 9.6 Immature Gran % (Auto) 0.3 Neut % (Auto) 58.3 Lymph % (Auto) 28.4 [place] % (Auto) 10.9 Eos % (Auto) 1.6 Baso % (Auto) 0.5 Lymph # (Auto) 1.7 [place] # (Auto) 0.7 Eos # (Auto) 0.1 Baso # (Auto) 0.0 Abs Immat Gran (auto) 0.02 Absolute Neuts (auto) 3.6 Absolute Nucleated RBC 0.000 Nucleated RBC % (auto) 0.0 Anion Gap 10 L Estim Creat Clear Calc 47.1 Estimated GFR > 60 Fasting Glucose 104 H Calcium 8.6 Assessment and Plan (1) Status post total hip replacement, right: Status: Acute Plan 79-year-old woman admitted by Orthopedic surgery and is status post right total hip arthroplasty. Rapid response called for brief episode of AFib with rapid ventricular response and hypotension which responded to fluids and Trendelenburg. No further events overnight 1.Right total hip arthroplasty -as per surgical team 2. AFib with RVR -examines back in sinus rhythm at this time -follow clinically 3.Hypothyroidism -continue levothyroxine 4. Acute on chronic anemia (iron deficiency at baseline) -drop likely secondary to hemodilution -check CBC in a.m. -continue iron supplementation DVT prophylaxis with Lovenox Medical consultation complete. Will sign off. Quality Stroke Does the patient have a stroke diagnosis?: No VTE Prior VTE?: No VTE Risk Level:: Medical - moderate - high VTE Device Contraindication: N/A - Device Ordered VTE Drug Contraindication: N/A - Med Ordered
--- NOTE | 2024-10-05 14:23 | MHC.CM.PN ---
EMR REVIEWED AND PER MD ROUNDS, PT IS NOT MEDICALLY CLEARED FOR DC TO STR (MONITORING LABS) [facility] HAS ACCEPTED PENDING AUTH AND HAS STARTED AUTH PROCESS. PER LIAISON, [facility] IS NOT FUNCTIONING FOR THIS CASE, [facility] FAXED [phone]. PT EXPECTED TO BE DC 10/06
[2024-10-05 15:04] VITALS: BP 112/54; PULSE 92; RESP 12; TEMP 37.3; O2SAT 96
[2024-10-05 19:35] VITALS: BP 117/58; PULSE 96; RESP 18; TEMP 37; O2SAT 97
[2024-10-05] MEDS: hydroCHLOROthiazide 25 MG TABLET PO (20:52)
[2024-10-05] MEDS: Acetaminophen 325 MG TABLET 650 MG PO (20:53)
[2024-10-06] VITALS (8 sets, daily range): BP systolic 100–124; BP diastolic 53–59; PULSE 75–91; RESP 16–18; TEMP 36.1–37.2; O2SAT 98–99
--- NOTE | ~2024-10-06 | XR_ITS ---
EXAMINATION: XR PELVIS CLINICAL INFORMATION: s/p RTHA COMPARISON: None available. TECHNIQUE: AP view of the pelvis. FINDINGS: There are bilateral hip prosthesis in satisfactory alignment. Immediate postoperative changes of right hip arthroplasty is noted. There is no periprosthetic fracture. The soft tissues are normal. XR/XR pelvis 1-2V IMPRESSION: Immediate postoperative changes following right hip total arthroplasty is noted. The left hip prosthesis is in alignment. Electronically signed by: Johan Moon MD 10/03/2024 04:39 PM EST
[2024-10-06] MEDS: Levothyroxine Sodium 50 MCG TABLET PO (05:51)
[2024-10-06 06:34] LABS: MANUAL DIFF FLAG NO
[2024-10-06 06:54] LABS: Basophils Percent Auto 0.4 % (0-2); Eosinophils Absolute Auto 0.2 X10*3/uL (0.0-0.4); Eosinophils Percent Auto 3.7 % (0-4); Hematocrit 24.2 % (37.0-47.0); Hemoglobin 8.1 g/dl (12.0-16.0); Imm Gran Abs Auto 0.03 X10*3/uL (0.00-0.03); Imm Gran Pct Auto 0.6 % (0.0-0.4); Lymphocytes Absolute Auto 1.7 X10*3/uL (1.2-4.9); Lymphocytes Percent Auto 32.1 % (20-40); Mean Corpuscular HGB Conc 33.5 g/dl (31.0-35.0); Mean Corpuscular Hemoglobin 32.1 pg (27.0-33.0); Mean Platelet Volume 9.8 fL (9.4-12.3); Monocytes Absolute Auto 0.6 X10*3/uL (0.1-1.2); Monocytes Percent Auto 11.4 % (2-11); Neutrophils Absolute Auto 2.8 x10*3/uL (2.0-8.3); Neutrophils Percent Auto 51.8 % (45-73); Platelet Count 180 X10*3/uL (160-400); Red Blood Count 2.52 X10*6/uL (4.20-5.50); Red Cell Distribution Width 12.3 % (11.0-16.0); White Blood Count 5.4 X10*3/uL (4.8-10.8)
[2024-10-06 06:57] LABS: Anion Gap 10 (12-20); Blood Urea Nitrogen 27 mg/dL (9-16); Calcium 8.6 mg/dL (8.4-10.2); Carbon Dioxide 29 mmol/L (22-29); Chloride 102 mmol/L (96-108); Creatinine Clr Calc Pharmacy 45.4; Estimated Glomerular Filt Rate > 60; Glucose Fasting 101 mg/dL (60-99); Potassium 4.2 mmol/L (3.3-5.1); Sodium 137 mmol/L (135-145)
[2024-10-06] MEDS: 0.9 % Sodium Chloride Flush 3 ML SYRINGE IVFLUSH ×3 (09:55→20:21)
[2024-10-06] MEDS: Calcium Oyster Shell Elemental 500 MG TABLET PO (09:55)
[2024-10-06] MEDS: Cholecalciferol (Vitamin D3) 25 MCG TABLET 125 MCG PO (09:55)
[2024-10-06] MEDS: Ascorbic Acid 500 MG TABLET PO (09:55)
[2024-10-06] MEDS: Celecoxib 200 MG CAPSULE PO ×2 (09:55→20:20)
[2024-10-06] MEDS: Ferrous Sulfate 324 MG TABLET.DR PO (09:55)
[2024-10-06] MEDS: Multivitamin TABLET 2 TAB PO ×2 (09:55→20:20)
--- NOTE | 2024-10-06 10:12 | PM.PNORT ---
Subjective Subjective Date of Service: 10/06/24 Interval history: POD3 s/p right total hip arthroplasty Patient is resting in bed comfortably No acute events overnight No further syncopal episodes or bouts of dizziness Pain is managed No additional complaints Physical Exam Vital Signs: Vital Signs: Last Vital Signs Temp 97.1 F 10/06/24 07:42 Pulse 80 10/06/24 07:42 Resp 16 10/06/24 07:42 BP 105/59 L 10/06/24 07:42 Pulse Ox 98 10/06/24 07:42 O2 Del Method Room Air 10/06/24 07:42 O2 Flow Rate 4 10/03/24 13:28 BMI result Body Mass Index 21.0 Const: General: cooperative, healthy appearing and no acute distress Resp: Effort & Inspection: normal respiratory effort and able to speak in complete sentences Cardio: Rate: regular rate Peripheral pulses: Peripheral pulses 2+ throughout GI: Palpation (GI): Soft to palpation Skin: Lesions: no lesions Rashes: no rashes Extrem: Other: rt hip dressing is c/d/i. Able to dorsi/plantar flex. Calf is supple and nontender. Sensation intact. Pedal pulse intact. Procedures Date of Service Date of Service: 10/06/24 Progress Note: A&P Assessment and plan (1) Status post total hip replacement, right: Status: Acute Plan 1. Status post right total hip arthroplasty DOS 10/03/2024 Continue pain management Continue Lovenox for DVT prophylaxis Due to H&H dropping to 8.1/24.2, at the recommendation of the hospitalist team, 1 unit of packed RBCs ordered Continue with iron supplementation Continue PT/OT Dispo planning-PT/OT eval, insurance authorization, pain management, medical clearance Time Spent With Patient Time: Total time managing care of this patient today ____ minutes. Quality Stroke Does the patient have a stroke diagnosis?: No VTE Prior VTE?: No VTE Risk Level:: Medical - moderate - high VTE Device Contraindication: N/A - Device Ordered VTE Drug Contraindication: N/A - Med Ordered
--- NOTE | 2024-10-06 12:02 | HO.PM.IMPN ---
Subjective Subjective Date of Service: 10/06/24 Interval History: No acute issues overnight. Hemoglobin trending downward Review of Systems Denies chest pain Denies shortness of breath Denies nausea vomiting diarrhea Denies fever chills Physical Exam Vital Signs: Vital Signs: Last Vital Signs Temp 98.7 F 10/06/24 11:09 Pulse 84 10/06/24 11:09 Resp 16 10/06/24 11:09 BP 100/59 L 10/06/24 11:09 Pulse Ox 98 10/06/24 07:42 O2 Del Method Room Air 10/06/24 07:42 O2 Flow Rate 4 10/03/24 13:28 BMI result Body Mass Index 21.0 Const: Other: Awake alert no acute distress Resp: Other: Clear to auscultation bilaterally no rales rhonchi or wheezes Cardio: Other: No S4; positive S1-S2; no S3 murmurs rubs or gallops regular rate and rhythm GI: Other: Soft nontender nondistended normoactive bowel sounds Extrem: Other: No edema bilaterally Objective Data Active Medications Acetaminophen (Acetaminophen 325 Mg Tablet) 650 mg PO Q6H PRN PRN Reason: Pain, Mild 1-3,fever,headache Last Admin: 10/05/24 20:53 Dose: 650 mg Documented By: SIMONA Albuterol Sulfate (Albuterol Sulfate 90 Mcg 8 Gm Inhaler) 2 puff INHALE Q6H PRN PRN Reason: Shortness Of Breath Or Wheezing Ascorbic Acid (Ascorbic Acid 500 Mg Tablet) 500 mg PO DAILY [facility] Last Admin: 10/06/24 09:55 Dose: 500 mg Documented By: DIEGO Calcium Carbonate (Calcium Oyster Shell Elemental 500 Mg Tablet) 500 mg PO DAILY [facility] Last Admin: 10/06/24 09:55 Dose: 500 mg Documented By: DIEGO Celecoxib (Celecoxib 200 Mg Capsule) 200 mg PO BID [facility] Last Admin: 10/06/24 09:55 Dose: 200 mg Documented By: DIEGO Docusate Sodium (Docusate Sodium 100 Mg Capsule) 100 mg PO BID PRN PRN Reason: Constipation Enoxaparin Sodium (Enoxaparin Sodium 40 Mg/0.4 Ml Syringe) 40 mg SUBCUT Q24H [facility] Last Admin: 10/05/24 12:12 Dose: 40 mg Documented By: BEBETO Ferrous Sulfate (Ferrous Sulfate 324 Mg Tablet.) 324 mg PO DAILY [facility] Last Admin: 10/06/24 09:55 Dose: 324 mg Documented By: DIEGO Hydrochlorothiazide (Hydrochlorothiazide 25 Mg Tablet) 25 mg PO BEDTIME [facility]; Protocol Last Admin: 10/05/24 20:52 Dose: 25 mg Documented By: SIMONA Hydromorphone HCl (Hydromorphone Hcl 0.5 Mg/0.5 Ml Syringe) 0.25 mg IVPUSH Q4H PRN; Protocol PRN Reason: Pain, Severe (Pain Scale 7-10) Levothyroxine Sodium (Levothyroxine Sodium 50 Mcg Tablet) 50 mcg PO DAILY@0600 [facility] Last Admin: 10/06/24 05:51 Dose: 50 mcg Documented By: SIMONA Magnesium Hydroxide (Milk Of Magnesia 30 Ml Oral.Susp) 30 ml PO DAILY PRN PRN Reason: Constipation Multivitamins/Vitamin C (Multivitamin Tablet) 2 tab PO BID [facility] Last Admin: 10/06/24 09:55 Dose: 2 tab Documented By: DIEGO Oxycodone HCl (Oxycodone Hcl Immed Release 5 Mg Tablet) 5 mg PO Q4H PRN PRN Reason: Pain, Moderate(Pain Scale 4-6) Sodium Chloride (0.9 % Sodium Chloride Flush 3 Ml Syringe) 3 ml IVFLUSH QSHIFT [facility] Last Admin: 10/06/24 09:55 Dose: 3 ml Documented By: DIEGO Vitamin D (Cholecalciferol (Vitamin D3) 25 Mcg Tablet) 125 mcg PO DAILY [facility] Last Admin: 10/06/24 09:55 Dose: 125 mcg Documented By: DIEGO Labs 10/06/24 06:02 10/06/24 06:02 Labs: Laboratory Results - last 24 hr 10/06/24 10/06/24 06:02 09:46 MCV 96.0 MCH 32.1 MCHC 33.5 RDW 12.3 Plt Count 180 MPV 9.8 Immature Gran % (Auto) 0.6 H Neut % (Auto) 51.8 Lymph % (Auto) 32.1 [place] % (Auto) 11.4 H Eos % (Auto) 3.7 Baso % (Auto) 0.4 Lymph # (Auto) 1.7 [place] # (Auto) 0.6 Eos # (Auto) 0.2 Baso # (Auto) 0.0 Abs Immat Gran (auto) 0.03 Absolute Neuts (auto) 2.8 Absolute Nucleated RBC 0.000 Nucleated RBC % (auto) 0.0 Anion Gap 10 L Estim Creat Clear Calc 45.4 Estimated GFR > 60 Fasting Glucose 101 H Calcium 8.6 Blood Type B Positive Antibody Screen NEGATIVE Crossmatch See Detail Assessment and Plan (1) Osteoarthritis of right hip: Status: Acute Plan 79-year-old woman admitted by Orthopedic surgery and is status post right total hip arthroplasty. Rapid response called for brief episode of AFib with rapid ventricular response and hypotension which responded to fluids and Trendelenburg. No further events overnight 1.Right total hip arthroplasty -as per surgical team 2. Acute on chronic anemia (iron deficiency at baseline) -given trend we will transfuse 1 unit of packed red blood cell -check CBC in a.m. -continue iron supplementation 3. AFib with RVR -examines back in sinus rhythm at this time -follow clinically 3.Hypothyroidism -continue levothyroxine 4. Acute on chronic anemia (iron deficiency at baseline) -drop likely secondary to hemodilution -check CBC in a.m. -continue iron supplementation DVT prophylaxis with Lovenox Medical consultation complete. Will sign off. Quality Stroke Does the patient have a stroke diagnosis?: No VTE Prior VTE?: No VTE Risk Level:: Medical - moderate - high VTE Device Contraindication: N/A - Device Ordered VTE Drug Contraindication: N/A - Med Ordered
[2024-10-06] MEDS: Enoxaparin Sodium 40 MG/0.4 ML SYRINGE SUBCUT (12:41)
--- NOTE | 2024-10-06 13:42 | MHC.CM.PN ---
Addendum entered by Margarita Velazquez 10/07/24 12:54: PT AWARE OF DC TIME DAUGHTER NOTIFIED VIA T/C [phone] Addendum entered by Margarita Velazquez 10/07/24 12:44: CM SPOKE TO [place] AT [facility], SHE IS AWARE PT WILL TRANSFER TODAY AND PER DISCUSSION, TRANSPORT WAS BOOKED FOR 1500 HOURS WITH MARV Addendum entered by Margarita Velazquez 10/07/24 09:19: PER ORTHO, PT CLEAR TO DC, CM HAS ATTEMPTED TO CONTACT [facility] VIA [facility], HOWEVER IT APPEARS THEY ARE NOT RECEIVING UPDATES CM HAS ATTEMPTED TO REACH [facility] VIA T/C [phone], PHONE RINGS CONTINUOUSLY WITH NO ANSWER CM SENT AN UPDATE VIA FAX, AWAITING RESPONSE Addendum entered by Margarita Velazquez 10/06/24 13:47: PT NOW INPATIENT, IMM DELIVERED Original Note: PT MD, PT NOT READY TO DC PT EXPECTED TO BE READY TOMORROW PT INFORMED AND VM MESSAGE LEFT FOR DAUGHTERELAINE [phone] PT WILL DC TO [facility] VIA BLS ONCE MEDICALLY CLEARED
[2024-10-06] MEDS: hydroCHLOROthiazide 25 MG TABLET PO (20:21)
[2024-10-06] MEDS: Acetaminophen 325 MG TABLET 650 MG PO (20:21)
[2024-10-07 04:00] VITALS: BP 119/60; PULSE 80; RESP 18; TEMP 36.4; O2SAT 97
[2024-10-07] MEDS: Levothyroxine Sodium 50 MCG TABLET PO (05:45)
[2024-10-07 07:22] VITALS: BP 114/62; PULSE 80; RESP 16; TEMP 36.5; O2SAT 93
[2024-10-07 07:56] LABS: MANUAL DIFF FLAG NO
[2024-10-07 08:14] LABS: Basophils Percent Auto 0.5 % (0-2); Eosinophils Absolute Auto 0.3 X10*3/uL (0.0-0.4); Hematocrit 30.2 % (37.0-47.0); Hemoglobin 9.9 g/dl (12.0-16.0); Imm Gran Abs Auto 0.01 X10*3/uL (0.00-0.03); Imm Gran Pct Auto 0.2 % (0.0-0.4); Lymphocytes Absolute Auto 1.7 X10*3/uL (1.2-4.9); Lymphocytes Percent Auto 38.8 % (20-40); Mean Corpuscular HGB Conc 32.8 g/dl (31.0-35.0); Mean Corpuscular Hemoglobin 30.5 pg (27.0-33.0); Mean Corpuscular Volume 92.9 fL (80.0-98.0); Mean Platelet Volume 9.7 fL (9.4-12.3); Monocytes Absolute Auto 0.5 X10*3/uL (0.1-1.2); Monocytes Percent Auto 11.1 % (2-11); Neutrophils Absolute Auto 1.9 x10*3/uL (2.0-8.3); Neutrophils Percent Auto 43.4 % (45-73); Platelet Count 219 X10*3/uL (160-400); Red Blood Count 3.25 X10*6/uL (4.20-5.50); White Blood Count 4.3 X10*3/uL (4.8-10.8)
[2024-10-07 08:22] LABS: Anion Gap 10 (12-20); Blood Urea Nitrogen 25 mg/dL (9-16); Calcium 9.2 mg/dL (8.4-10.2); Carbon Dioxide 29 mmol/L (22-29); Chloride 103 mmol/L (96-108); Creatinine Clr Calc Pharmacy 42.8; Estimated Glomerular Filt Rate > 60; Glucose Fasting 90 mg/dL (60-99); Potassium 4.1 mmol/L (3.3-5.1); Sodium 138 mmol/L (135-145)
[2024-10-07] MEDS: Cholecalciferol (Vitamin D3) 25 MCG TABLET 125 MCG PO (09:02)
[2024-10-07] MEDS: Multivitamin TABLET 2 TAB PO (09:02)
[2024-10-07] MEDS: 0.9 % Sodium Chloride Flush 3 ML SYRINGE IVFLUSH (09:03)
[2024-10-07] MEDS: Ferrous Sulfate 324 MG TABLET.DR PO (09:03)
[2024-10-07] MEDS: Calcium Oyster Shell Elemental 500 MG TABLET PO (09:03)
[2024-10-07] MEDS: Celecoxib 200 MG CAPSULE PO (09:03)
[2024-10-07] MEDS: Ascorbic Acid 500 MG TABLET PO (09:03)
--- NOTE | 2024-10-07 09:26 | PM.DS ---
DS: Providers Provider Date of Service: 10/07/24 Date of admission: 10/06/24 13:45 Date of discharge: 10/07/24 Primary care physician: Mi Mo MD Consults: 10/03/24 15:08 Consult to Hospitalist Routine Comment: Consulting Provider: [facility] Hospitalists Reason For Exam: routine medical management DS: Diagnosis Discharge Diagnosis (1) HTN (hypertension): Status: Acute DS: Summary Hospital Course Hospital Course: The patient underwent a successful right total hip arthroplasty on 10/03/2024, was transferred to PACU and then to the floor to recover. During their stay, their vitals were stable, afebrile at 97.7 . Labs were unremarkable, H/H 9.9/30.2. POD 1 she was started on Lovenox 40 mg a day for DVT ppx, they also received Physical Therapy services twice a day. Physical therapy should include gait training, core and lumbar strength, glute strength. Posterior precautions intact. WBAT. Prior to discharge, her dressing was changed, incision clean dry and intact, new Aquacel dressing applied. The Aquacel dressing should remain intact and dry at all times. Any concerns with the dressing, please contact orthopedic office. No showering. The plan is to be discharged Status at Discharge Cognitive/behavioral status at discharge: Stable for discharge Time Attestation Discharge Coordination Time (in mins): 30 Quality: Safe Use of Opioids Does Pt have an Active Cancer Diagnosis on the Problem List?: No Quality: Stroke Does the patient have a stroke diagnosis?: No Physical Exam Vital Signs: Vital Signs: Last Vital Signs Temp 97.7 F 10/07/24 07:22 Pulse 80 10/07/24 07:22 Resp 16 10/07/24 07:22 BP 114/62 10/07/24 07:22 Pulse Ox 93 10/07/24 07:22 O2 Del Method Room Air 10/07/24 07:22 O2 Flow Rate 4 10/03/24 13:28 BMI result Body Mass Index 21.0 Const: General: cooperative, healthy appearing and no acute distress Resp: Effort & Inspection: normal respiratory effort and able to speak in complete sentences Cardio: Rate: regular rate Peripheral pulses: Peripheral pulses 2+ throughout GI: Palpation (GI): Soft to palpation Skin: Lesions: no lesions Rashes: no rashes Extrem: Other: rt hip dressing is c/d/i. Able to dorsi/plantar flex. Calf is supple and nontender. Sensation intact. Pedal pulse intact. DS: Data Data Completed and Pending Completed studies during hospitalization [Text1]: Procedures Replacement of Left Hip Joint with Synthetic Substitute, Cemented, Open Approach (12/21/23) Pending studies at discharge: Pending at discharge 10/03/24 11:43 Surgical [PTH] Routine Labs on day of discharge: Laboratory Results - last 24 hr 10/06/24 10/07/24 09:46 06:18 WBC 4.3 L RBC 3.25 L D Hgb 9.9 L D Hct 30.2 L D MCV 92.9 MCH 30.5 MCHC 32.8 RDW 14.0 Plt Count 219 MPV 9.7 Immature Gran % (Auto) 0.2 Neut % (Auto) 43.4 L Lymph % (Auto) 38.8 [place] % (Auto) 11.1 H Eos % (Auto) 6.0 H Baso % (Auto) 0.5 Lymph # (Auto) 1.7 [place] # (Auto) 0.5 Eos # (Auto) 0.3 Baso # (Auto) 0.0 Abs Immat Gran (auto) 0.01 Absolute Neuts (auto) 1.9 L Absolute Nucleated RBC 0.000 Nucleated RBC % (auto) 0.0 Sodium 138 Potassium 4.1 Chloride 103 Carbon Dioxide 29 Anion Gap 10 L BUN 25 H Creatinine 0.88 Estim Creat Clear Calc 42.8 Estimated GFR > 60 Fasting Glucose 90 Calcium 9.2 D Blood Type B Positive Antibody Screen NEGATIVE Crossmatch See Detail Discharge Plan Discharge Anticipated Discharge Date/Time: 10/07/24 11:15 Patient Disposition: Xfer [facility] Discharge Diagnosis: Status post right total hip arthroplasty Referrals: Azul fernandez Parrish [Outside] Geno Lima PA-C [Physician Retail Shift Manager] - 10/18/24 1:00 pm Discharge Medications: New acetaminophen 325 mg Tablet 650 mg PO Q6H PRN (Reason: Pain, Mild 1-3,Fever,Headache) Qty: 240 0RF celecoxib 200 mg Capsule 200 mg PO BID 30 Days Qty: 60 0RF ascorbic acid (vitamin C) [Vitamin C] 500 mg Tablet 500 mg PO DAILY 30 Days Qty: 30 0RF oxycodone 5 mg Tablet 5 mg PO Q4H PRN (Reason: Pain, Moderate(Pain Scale 4-6)) 7 Days Qty: 42 0RF Rx Instructions: Partial Fill upon patient request. enoxaparin 40 mg/0.4 mL Syringe 40 mg subcut Q24H 42 Days Qty: 16.8 0RF Continued (DME) walker [facility] See Rx Instructions .ROUTE .MEDSUPPLY Qty: 1 0RF Rx Instructions: Folding front wheeled walker calcium carbonate 600 mg calcium (1,500 mg) Tablet 600 mg PO DAILY cholecalciferol (vitamin D3) [Vitamin D3] 125 mcg (5,000 unit) Tablet 125 mcg PO DAILY [facility] AREDS 2,148 mcg-113 mg-45 mg-17.4mg Tablet 2 tab PO BID Rx Instructions: administer with AM and PM meals docusate sodium 100 mg capsule 100 mg PO BID PRN (Reason: Constipation) ferrous sulfate [iron] 325 mg (65 mg iron) Tablet 325 mg PO DAILY hydrochlorothiazide 25 mg tablet 25 mg PO QPM levothyroxine 50 mcg tablet 50 mcg PO DAILY albuterol sulfate [ProAir HFA] 90 mcg/actuation HFA aerosol inhaler 2 puff inhalation Q6H PRN (Reason: Shortness Of Breath Or Wheezing) (DME) Raised toliet seat with commode See Rx Instructions .ROUTE .MEDSUPPLY Qty: 1 0RF Rx Instructions: As directed (DME) front wheeled walker See Rx Instructions .Route .MEDSUPPLY Qty: 1 0RF Rx Instructions: As directed Held aspirin [Adult Low Dose Aspirin] 81 mg tablet,delayed release (DR/EC) 81 mg PO BEDTIME Hold Instructions: Resume on 11/18/24. Discontinued celecoxib 200 mg capsule 200 mg PO DAILY Qty: 90 0RF acetaminophen 325 mg Tablet 650 mg PO Q6H PRN (Reason: Pain, Mild (Pain Scale 1-3)) 30 Days Qty: 240 0RF Discharge Orders: Discharge Order (Routine); Ordered 10/07/24 Ordered By: Raji Ho Diet: Advance to usual diet Activity on Discharge: Use cane or walker Stand Alone Forms: Patient Portal Discharge page Print Language: Arabic Activity Restrictions/Additional Instructions: Physical Therapy for total hip arthroplasty: posterior precautions, gait training, ROM, strength Limit stair climbing No showering, no tub bath-keep dressing clean, dry and intact No driving x6 weeks Continue Lovenox tabs x6 weeks Follow up with [facility] [place] Orthopedics in 2 weeks Care Plan Goals: Returned to normal function of right hip Health Concerns: Status post right MAXIMUS Plan of Treatment: Physical therapy for total hip arthroplasty: WBAT, posterior precautions, gait training, range of motion, strength Limit stair climbing No showering, no tub bath-keep dressing clean dry and intact No driving for 6 weeks Continue aspirin twice a day for 6 weeks Follow-up with [facility] in 2 weeks Assessment: Stable for discharge
[2024-10-07] MEDS: Enoxaparin Sodium 40 MG/0.4 ML SYRINGE SUBCUT (12:47)
[2024-10-07 14:26] VITALS: BP 148/66; PULSE 86; RESP 16; TEMP 36.3; O2SAT 100
== END 2024-10-07 16:37 | disposition skilled nursing facility (03) | DRG 470 ==
LOC: HO.SSS 13:47 → HO.S3 13:47
PROVIDERS: Hospitalist; Internal Medicine; Nurse Practitioner; Physician Assistant; PCP Student in an Organized Health Care Education/Training Program; Visit Provider Orthopaedic Surgery
PROC: 0SR903A Replacement of Right Hip Joint with Ceramic Synthetic Substitute, Uncemented, Open Approach (ICD-10-PCS; CPT 27130; principal; 2024-10-03 11:50)
DX: M16.11 Unilateral primary osteoarthritis, right hip (principal); I95.81 Postprocedural hypotension; I48.91 Unspecified atrial fibrillation; K21.9 Gastro-esophageal reflux disease without esophagitis; I10 Essential (primary) hypertension; E03.9 Hypothyroidism, unspecified; D50.9 Iron deficiency anemia, unspecified; Z79.82 Long term (current) use of aspirin; Z79.890 Hormone replacement therapy; Z79.899 Other long term (current) drug therapy
CPT/HCPCS: 27130; 36415; 72170; 80048; 80053; 84484; 85014; 85018; 85025; 85027; 86850; 86900; 86901; 86923; 87640; 87641; 88304; 88311; 93005; 97110; 97116; 97162; 97166; 97530; C1713; C1776; J0131; J0690; J1650; J2003; J2371; J2405; J2704; J2795; J3010; J7120; P9016

== ENCOUNTER → 2024-10-18 12:51 | Outpatient (BNVA) | payer MEDICARE, SELFPAY | PROVIDERS: PCP Student in an Organized Health Care Education/Training Program; Visit Provider Physician Assistant | DX: Z47.1 Aftercare following joint replacement surgery (principal); Z96.641 Presence of right artificial hip joint | CPT/HCPCS: 99212 ==

== ENCOUNTER 2024-11-08 11:44 | Outpatient (REF) | payer MEDICARE, SELFPAY ==
--- NOTE | ~2024-11-08 | XR_ITS ---
EXAMINATION: XR PELVIS 1-2 VIEWS HISTORY: M25.559 - Pain in unspecified hip COMPARISON: Comparison is made with the prior examination dated 10/03/2024. FINDINGS: Two AP views of the pelvis are submitted. The bones are osteopenic. The patient is status post bilateral total hip arthroplasty. The orthopedic elements are in anatomic alignment on these AP views. There is no fracture or dislocation. There is severe degenerative disc disease of the lower lumbar spine. XR/XR pelvis 1-2V IMPRESSION: Status post bilateral total hip arthroplasty. Electronically signed by: Tj Moser MD 11/08/2024 03:14 PM [facility]
--- OUTSIDE RECORDS SUMMARY | 2024-11-08 14:17 | XMS_ITS | Encounter Summary ---
Author Organization [employer] Address [address] [place] [address] [address] [place] [address] Care Team Providers Care Food Mixer Assembler Name Role Phone Mi Mo MD Primary Care Provider [phone] Reason for Visit * Reason Onset Date Comments verbal order 01/11/2024 Encounter Details Date Type Department Care Team ([facility] Contact Info) Description 01/11/2024 Telephone [facility] [address] [place] [address], [place] [phone] Mi Mo MD [address] [place] [address] verbal order Social History Tobacco Use Types [...] 10:35 AM EDT Please advise[facility], PT,OT, medical imaging tech, Cristiane states that they expect this to go for a full episode which is 60 days. Theseorders are to help pt after recent hip replacement. Thank you in advance. * Telephone Encounter - Caitie Rodriguez - 01/11/2024 4:16 PM EDT Tc from cristiane with [facility] requesting verbal order for start of care. Please contact cristiane at [phone] documented in this encounter Plan of Treatment Not on file documented as of this encounter Visit Diagnoses Not on filedocumented in this encounter Additional Health Concerns Assessment Noted Time PHQ-9 Depression Total Score: 0 02/10/20 23 11:07 AM EDT documented as of this encounter Care Teams Food Mixer Assembler Relationship Specialty Start Date End Date Mi Mo MD [address] [place] [address] PCP - General Family Medicine 10/31/19 documented as of this encounter
--- OUTSIDE RECORDS SUMMARY | 2024-11-08 14:17 | XMS_ITS | Encounter Summary ---
Author Organization [employer] Address [address] 7t [place] [address] Care Team Providers Care Doll Wig Hackler Name Role Phone Mi Mo MD Primary Care Provider [phone] Encounter Details Date Type Department Care Team (Late st Contact Info) Description 09/18/2024 Orders Only [facility] MED & PEDS [address] [place] [address] Provider, MD Glenis Social History Tobacco Use [...] documented as of this encounter Care Teams Doll Wig Hackler Relationship Specialty Start Date End Date Mi Mo MD [address] [place] [phone] PCP - General Family Medicine 10/31/19 documented as of this encounter
--- OUTSIDE RECORDS SUMMARY | 2024-11-08 14:17 | XMS_ITS | Encounter Summary ---
Author Organization [employer] Address [address] [place] [address] 7t [place] [address] Care Team Providers Care Cst Name Role Phone Mi Mo MD Primary Care Provider [phone] Encounter Details Date Type Department Care Team ([facility] st Contact Info) Description 03/14/[address] [facility] MED & PEDS [address] [place], [place] [phone] Mi Mo MD [address] [place], [place] [phone] Social History Tobacco Use Types Packs/Day Years [...] documented as of this encounter Care Teams Cst Relationship Specialty Start Date End Date Mi Mo MD [address] [place] [phone] PCP - General Family Medicine 10/31/19 documented as of this encounter
--- OUTSIDE RECORDS SUMMARY | 2024-11-08 14:17 | XMS_ITS | Clinical Summary ---
Author Organization [employer] Address [address] [place] [address] 7t [place] [address] Care Team Providers Care Cam Specialist Name Role Phone Mi Mo MD Primary Care Provider [phone] Allergies Active Allergy Reactions Criticality Noted Date [...] Encounters Date Type Department Care Team Description 10/06/2024 Orders Only GENERIC EXTERNAL DATA DEPARTMENT Provider, Generic External Data 10/05/2024 Orders Only GENERIC EXTERNAL DATA DEPARTMENT Provider, Generic External Data 10/04/2024 Orders Only GENERIC EXTERNAL DATA DEPARTMENT Provider, Generic External Data 10/03/2024 Orders Only GENERIC EXTERNAL DATA DEPARTMENT Provider, Generic External Data 09/27/2024 Orders Only [facility] External Provider, [facility] 09/18/2024 Telephone [facility] MED [facility] PEDS [address] [place] [address] Mi Mo MD 09/18/2024 Orders Only [facility] MED [facility]ED[facility] [address] [facility] [place] [address] Mi Mo MD Primary hypertension (Primary Dx) 09/18/2024 Orders Only [facility] [address] [facility] [place] [phone] ProviderGlenis MD 09/17/2024 10:15 AM EST Office Visit [facility] [address] [facility] [place] [address] Mi Mo MD Primary hypertension (Primary Dx); Mild intermittent asthma without complication; Right hip pain; Preop cardiovascular exam 09/17/2024 Travel 09/14/2024 Telephone [facility] [address] [facility] [place] [address] Mi Mo MD Chart Prep 08/30/2024 Orders Only GENERIC EXTERNAL DATA DEPARTMENT Provider, Generic External Data from Last 3 Months Social History Tobacco [...] Vaccines (1 of 2) 1995 Pneumococcal Vaccine: 50+ Years (2 of 2 - PPSV23) 06/05/2015 04/10/2015 RSV Patients and Patients Aged [...] Associated Diagnosis Comments TYPE AND SCREEN Routine 10/06/2024 9:46 AM EST BASIC METABOLIC PANEL, FASTING Routine 10/06/2024 6:02 AM EST CBC WITH AUTO DIFFERENTIAL Routine 10/06/2024 6:02 AM EST BASIC METABOLIC PANEL, FASTING Routine 10/05/2024 5:57 AM EST CBC WITH AUTO DIFFERENTIAL Routine 10/05/2024 5:57 AM EST HIGH SENSITIVITY TROPONIN I Routine 10/04/2024 7:39 AM EST BASIC METABOLIC PANEL, FASTING Routine 10/04/2024 7:39 AM EST CBC WITH AUTO DIFFERENTIAL Routine 10/04/2024 7:39 AM EST HIGH SENSITIVITY TROPONIN I Routine 10/03/2024 7:25 PM EST COMPREHENSIVE METABOLIC PANEL Routine 10/03/2024 7:25 PM EST CBC WITH AUTO DIFFERENTIAL Routine 10/03/2024 7:25 PM EST XR PELVIS 1-2 VIEWS Routine 10/03/2024 4 :20 PM EST HEMOGLOBIN + HEMATOCRIT Routine 10/03/2024 9:34 AM EST TYPE AND SCREEN Routine 09/27/2024 11:35 AM [...] EST from Last 3 Months Results * (ABNORMAL) Basic Metabolic Panel, Fasting (10/06/2024 6:02 AM EST) Only the most recent of3 resultswithin the time period is included. Sodium 137 135 - 145 mmol/L [facility] Potassium 4.2 3.3 - 5.1 mmol/L [facility] Chloride 102 96 - 108 mmol/L [facility] Carbon Dioxide 29 22 - 29 mmol/L [facility] Anion Gap 10(L) 12 - 20 [facility] Urea Nitrogen (BUN) 27(H) 9 - 16 mg/dL [facility] Creatinine, Serum 0.83 0.5 - 1.4 mg/dL [facility] Creatinine Clr Calc Pharmacy 45.4 [facility] Comment:Provided height and weight: 160.02 cm,53.9 kg.eGFR (calculated from the MDRD study equation) and eCrCl(calculated from the Cockcroft-Gault equation) are based ondifferent parameters and may not yield comparable results.If eCrCl result is absurd, please check patient'sheight/weight. Estimated Glomerular Filt Rate >60 [facility] Comment:Chronic Kidney Disea se: Estimated GFR < 60 mL/min/1.78d7Zubcyj Kidney Disease: Estimated GFR < 15 mL/min/1.73m2 Glucose Fasting 101(H) 60 - 99 mg/dL [facility] Comment:A fasting glucose fr om 100-125 mg/dl is considered impaired(pre-diabetes). Calcium 8.6 8.4 - 10.2 mg/dL [facility] 10/06/2024 6:02 AM EST 10/06/2024 6:32 AM EST us Generic External Data Provider LAB BLOOD ORDERAB LES Final Result [facility] [address] [place] [phone] * (ABNORMAL) CBC auto differential (10/06/2024 6:02 AM EST) Only the most recent of4 resultswithin the time period is included. White Blood Count 5.4 4.8 - 10.8 X10*3/uL [facility] Red Blood Count 2.52(L) 4.20 - 5.50 X10*6/uL [facility] Hemoglobin 8.1(L) 12.0 - 16.0 g/dl [facility] Hematocrit 24.2(L) 37.0 - 47.0 % [facility] Mean Corpuscular Volume 96.0 80.0 - 98.0 fL [facility] Mean Corpuscular Hemoglobin 32.1 27.0 - 33.0 pg [facility] Mean Corpuscular HGB Conc 33.5 31.0 - 35.0 g/dl [facility] Red Cell Distribution Width 12.3 11.0 - 16.0 % [facility] Platelet Count 180 160 - 400 X10*3/uL [facility] Mean Platelet Volume 9.8 9.4 - 12.3 fL [facility] Neutrophils Percent Auto 51.8 45 - 73 % [facility] Imm Gran Pct Auto 0.6(H) 0.0 - 0.4 % [facility] Lymphocytes Percent Auto 32.1 20 - 40 % [facility] Monocytes Percent Auto 11.4(H) 2 - 11 % [facility] Eosinophils Percent Auto 3.7 0 - 4 % [facility] Basophils Percent Auto 0.4 0 - 2 % [facility] NRBC Pct Auto 0.0 0.0 - 0.2 /100WBC [facility] Neutrophils Absolute Auto 2.8 2.0 - 8.3 x10*3/uL [facility] Imm Gran Abs Auto 0.03 0.00 - 0.03 X10*3/uL [facility] Lymphocytes Absolute Auto 1.7 1.2 - 4.9 X10*3/uL [facility] Monocytes Absolute Auto 0.6 0.1 - 1.2 X10*3/uL [facility] Eosinophils Absolute Auto 0.2 0.0 - 0.4 X10*3/uL [facility] Basophils Absolute Auto 0.0 0.0 - 0.2 X10*3/uL [facility] NRBC Abs Auto 0.000 0.0 - 0.012 X10*3/uL [facility] 10/06/2024 6:02 AM EST 10/06/2024 6:32 AM EST us Generic External Data Provider LAB BLOOD ORDERAB LES Final Result [facility] [address] [place] [address] [phone] * High Sensitivity Troponin I (10/04/2024 7:39 AM EST) Only the most recent of2 resultswithin the time period is included. TROPONIN I HIGH SENSITIVITY 7.4 <3.5 - 17.0 ng/L [facility] Comment:The Salas high sens itivity Troponin-I results should beused in conjunction with other diagnostic information suchas ECG, clinical observations and information, and patientsymptoms to aid in the diagnosis of AL. 10/04/2024 7:39 AM EST 10/04/2024 7:50 AM EST us Generic External Data Provider LAB BLOOD ORDERAB LES Final Result [facility] [address] [place] [phone] * (ABNORMAL) Comprehensive Metabolic Panel (10/03/2024 7:25 PM EST) Pathologist [facility] Sodium 136 135 - 145 mmol/L [facility] Potassium 4.0 3.3 - 5.1 mmol/L [facility] Chloride 103 96 - 108 mmol/L [facility] Carbon Dioxide 26 22 - 29 mmol/L [facility] Anion Gap 11(L) 12 - 20 [facility] Urea Nitrogen (BUN) 17(H) 9 - 16 mg/dL [facility] Creatinine, Serum 0.78 0.5 - 1.4 mg/dL [facility] Creatinine Clr Calc Pharmacy 48.4 [facility] Comment:Provided height and weight: 160.02 cm,53.9 kg.eGFR (calculated from the MDRD study equation) and eCrCl(calculated from the Cockcroft-Gault equation) are based ondifferent parameters and may not yield comparable results.If eCrCl result is absurd, please check patient'sheight/weight. Estimated Glomerular Filt Rate >60 [facility] Comment:Chronic Kidney Disea se: Estimated GFR < 60 mL/min/1.54p2Moupvb Kidney Disease: Estimated GFR < 15 mL/min/1.73m2 Glucose 181(H) 60 - 115 mg/dL [facility] Calcium 9.1 8.4 - 10.2 mg/dL [facility] Bilirubin, Total 1.2(H) 0.0 - 1.0 mg/dL [facility] Aspartate Amino Transferase 27 5 - 31 U/L [facility] Alanine Aminotransferase 13 0 - 31 U/L [facility] Total Protein 6.5 6.5 - 8.0 g/dL [facility] Albumin Level 3.7 3.5 - 5.0 g/dL [facility] Alkaline Phosphatase 102 39 - 117 U/L [facility] 10/03/2024 7:25 PM EST 10/03/2024 7:32 PM EST us Generic External Data Provider LAB BLOOD ORDERAB LES Final Result [facility] [address] [place] [address] [phone] * XR Pelvis 1-2 Views (10/03/2024 4:20 PM EST) Anatomical Region Laterality Modality Body, Pelvis Radiographic Renuka ging 10/03/2024 4:20 PM EST Narrative 10/03/2024 4:42 PM EST ? [facility] ?[address] ?[place] [address] ?XRay Report ? Signed ? Patient: Farnaz,Yue A ?MR#: [id number] ?? [id number] ? : 1945 ?Acct:[id number] ? Age/Sex: 79 / F ?ADM Date: 10/03/24 ? Loc: HO.S3 ?367-1 ? Attending Dr: Scooby Marina MD ? Ordering Physician: Geno Lima PA-C ?? Date of Service: 10/03/24 ?? Procedure(s): XR pelvis 1-2V ?? Accession Number(s): [id number] ? cc: Geno Lima PA-C; Mi Mo MD ? EXAMINATION: ?? XR PELVIS ? CLINICAL INFORMATION: ?? s/p RTHA ? COMPARISON: ?? None available. ? TECHNIQUE: ?? AP view of the pelvis. ? FINDINGS: ?? There are bilateral hip prosthesis in satisfactory alignment. Immediate ?? postoperative changes of right hip arthroplasty is noted. There is no ?? periprosthetic fracture. The soft tissues are normal. ? XR/XR pelvis 1-2V ?? IMPRESSION: ?? 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 is noted. ? The left hip prosthesis is in alignment. ? Electronically signed by: ??Johan Moon MD ??10/03/2024 04:39 PM EST RP ? Dictated By: ?Johan Moon MD ? Signed By: ?<Electronically signed by Johan Moon MD in OV> ?10/03/24 1639 ? DD/ 1620 ? TD/TT: 10/03/24 1630 ? [employer]: MSM ? Procedure Note Anita, Image - 10/03/2024 [place] [address] XRay Report Signed Patient: Yue Osei AMR#: [id number] : 5Acct:[id number] Age/Sex: 79 / FADM Date: 10/03/24 Loc: .S3 367-[address]: Scooby Marina MD Ordering Physician: Geno Lima PA-C Date of Service: 10/03/24 Procedure(s): XR pelvis 1-2V Accession Number(s): [id number] cc: Geno Lima PA-C; Mi Mo MD EXAMINATION: XR PELVIS CLINICAL INFORMATION: s/p RTHA COMPARISON: None available. TECHNIQUE: AP view of the pelvis. FINDINGS: There are bilateral hip prosthesis in satisfactory alignment. Immediate postoperative changes of right hip arthroplasty is noted. There is no periprosthetic fracture. The soft tissues are normal. XR/XR pelvis 1-2V IMPRESSION: Immediate postoperative changes following right hip total arthroplasty is noted. The left hip prosthesis is in alignment. Electronically signed by: Johan Moon MD 10/03/2024 04:39 PM EST Dictated By: Johan Moon MD Signed By: <Electronically signed by Johan Moon MD in OV> 10/03/24 1639 DD/ 1620 TD/TT: 10/03/24 1630 [employer]: NAHUN us [facility] External Provider IMG XR PROCEDURES Final Result * (ABNORMAL) Hemoglobin and Hematocrit (10/03/2024 9:34 AM EST) Hemoglobin 11.2(L) 12.0 - 16.0 g/dl [facility] Hematocrit 33.5(L) 37.0 - 47.0 % [facility] 10/03/2024 9:34 AM EST 10/03/2024 9:38 AM EST Generic External Data Provider LAB BLOOD ORDERAB LES Final Result Performing Organization Address [facility] de Phone Number [facility] [address] [place] [phone] * Type and screen (09/27/2024 11:35 AM EST) Blood Type BP [facility] Antibody Screen NEGATIVE [facility] 09/27/2024 11:3 5 AM EST 09/27/2024 12:09 PM EST Narrative [facility] - 09/27/2024 2:47 PM EST WITNESSED BY ALONZO:Call Blood Bank (ext. [phone]) to band patient on admission.Type and Screen in effect until 2300 on [id number] expiration changed by NATY on 09/27/24Reason: PAT SPEC Generic External Data Provider LAB BLOOD BANK TE ST ORDERABLES Final Result Performing Organization Address [facility]/ZIP Co de Phone Number [facility] [address] [place] [phone] * XR Hip right with Pelvis 1 view (09/27/2024 9:48 AM EST) Anatomical Region Laterality Modality Lower Extremities, Hip Bilateral Radiograp hic Imaging 09/27/2024 9:48 AM EST Narrative 09/27/2024 2:39 PM EST ? [facility] ?[address] ?[place] [address] ?XRay Report ? Signed ? Patient: [place],Yue A ?MR#: [id number] ?? [id number] ? : 1945 ?Acct:[id number] ? Age/Sex: 79 / F ?ADM Date: 09/27/24 ? Loc: HO.LAB ? Attending Dr: Geno Lima PA-C ? Ordering Physician: Geno Lima PA-C ?? Date of Service: 09/27/24 ?? Procedure(s): XR hip RT w PEL 1V ?? Accession Number(s): [id number] ? cc: Geno Lima PA-C; Mi Mo [...] DD/ 0948 ? TD/TT: 09/27/24 0950 ? [employer]: ? Procedure Note Anita, Vipul - 09/27/[address] [address] XRay Report Signed Patient: Yue Osei AMR#: [id number] : 5Acct:[id number] Age/Sex: 79 / FADM Date: 09/27/24 Loc: HO.LAB Attending Dr: Geno Lima PA-C Ordering Physician: Geno Lima PA-C Date of Service: 09/27/24 Procedure(s): XR hip RT w PEL 1V Accession Number(s): [id number] cc: Geno Lima PA-C; Mi Mo MD [...] 09/27/24 1437 DD/ 0948 TD/TT: 09/27/24 0950 [employer]: [facility] External Provider IMG XR PROCEDURES Final Result * (ABNORMAL) Hepatic Function Panel (09/17/2024 11:03 AM EST) Bilirubin, Total 1.3(H) 0.0 - 1.0 mg/dL [facility] Bilirubin, Direct 0.4 0.0 - 0.5 mg/dL [facility] Aspartate Amino Transferase 32(H) 5 - 31 U/L [facility] Alanine Aminotransferase 11 0 - 31 U/L [facility] Total Protein 7.0 6.5 - 8.0 g/dL [facility] Albumin Level 4.1 3.5 - 5.0 g/dL [facility] Alkaline Phosphatase 93 39 - 117 U/L [facility] Blood Venous blood specimen / Unknown 09/17/2024 11:03 AM EST 09/17/2024 2:20 PM EST us Mi Mo MD LAB BLOOD ORDERABLES Final Resul t [facility] [address] [place] [phone] * (ABNORMAL) Lipid Panel, Standard (09/17/2024 11:03 AM EST) Triglycerides 100 <150 mg/dL [facility] Comment:Desirable Triglyceri de: less than 150 mg/dLBorderline High Triglyceride 150-199 mg/dLHigh Triglyceride: 200-499 mg/dLVery High Triglyceride: greater than or equal to 5OO mg/dL Cholesterol 199 <200 mg/dL [facility] Comment:Desirable Cholestero l: less than 200 mg/dLBorderline High Cholesterol: 200-239 mg/dLHigh Cholesterol: greater than 239 mg/dL LDL Cholesterol Calculated 115(H) <100 mg/dL [facility] Comment:Desirable LDL: less than 100 mg/dLNear Optimal/Above Optimal LDL: 110- 129 mg/dLBorderline High LDL: 130-159 mg/dLHigh LDL: 160-189 mg/dLVery High LDL: greater than or equal to 190 mg/dL HDL Cholesterol 64 >40 mg/dL [facility] Comment:Desirable HDL: great er than 40 mg/dL Note: This HDL assay may give artificially low results in patients with liver disease. Blood Venous blood specimen / Unknown 09/17/2024 11:03 AM EST 09/17/2024 2:20 PM EST us Mi Mo MD LAB BLOOD ORDERABLES Final Resul t Performing Organization Address [facility] de Phone Number [facility] [address] [place] [address] [phone] * (ABNORMAL) Basic Metabolic Panel (09/17/2024 11:03 AM EST) Only the most recent of2 resultswithin the time period is included. Sodium 139 135 - 145 mmol/L [facility] Potassium 3.8 3.3 - 5.1 mmol/L [facility] Chloride 104 96 - 108 mmol/L [facility] Carbon Dioxide 30(H) 22 - 29 mmol/L [facility] Anion Gap 9(L) 12 - 20 [facility] Urea Nitrogen (BUN) 25(H) 9 - 16 mg/dL [facility] Creatinine, Serum 0.81 0.5 - 1.4 mg/dL [facility] Estimated Glomerular Filt Rate >60 [facility] Comment:Chronic Kidney Disea se: Estimated GFR < 60 mL/min/1.70z1Yudvba Kidney Disease: Estimated GFR < 15 mL/min/1.73m2 Glucose 103 60 - 115 mg/dL [facility] Calcium 9.9 8.4 - 10.2 mg/dL [facility] Blood Venous blood specimen / Unknown 09/17/2024 11:03 AM EST 09/17/2024 2:20 PM EST iM Mo MD LAB BLOOD ORDERABLES Final Resul t Performing Organization Address [facility] Co de Phone Number [facility] [address] [place] [address] [phone] * ECG 12 lead (09/17/2024 10:24 AM EST) Only the most recent of2 resultswithin the time period is included. Mi Pinzon MD - 09/17/2024 10:24 AM EST NSR No acute Process Mi Mo MD ECG ORDERABLES Final Result * (ABNORMAL) CBC (08/30/2024 11:42 AM EST) White Blood Count 5.9 4.8 - 10.8 X10*3/uL [facility] Red Blood Count 4.03(L) 4.20 - 5.50 X10*6/uL [facility] Hemoglobin 12.6 12.0 - 16.0 g/dl [facility] Hematocrit 38.5 37.0 - 47.0 % [facility] Mean Corpuscular Volume 95.5 80.0 - 98.0 fL [facility] Mean Corpuscular Hemoglobin 31.3 27.0 - 33.0 pg [facility] Mean Corpuscular HGB Conc 32.7 31.0 - 35.0 g/dl [facility] Red Cell Distribution Width 12.7 11.0 - 16.0 % [facility] Platelet Count 237 160 - 400 X10*3/uL [facility] Mean Platelet Volume 10.0 9.4 - 12.3 fL [facility] NRBC Pct Auto 0.0 0.0 - 0.2 /100WBC [facility] NRBC Abs Auto 0.000 0.0 - 0.012 X10*3/uL [facility] 08/30/2024 11:4 2 AM EST 08/30/2024 11:42 AM EST us Generic External Data Provider LAB BLOOD ORDERAB LES Final Result Performing Organization Address City/State/[facility] Co de Phone Number [facility] [address] [place] [phone] * (ABNORMAL) MRSA Nasal Screen (08/30/2024 10:30 AM EST) MRSA Nasal PCR NEGATIVE Negative [facility] SA Nasal PCR POSITIVE(A) Negative [facility] MRSA Interpretation SEE NOTE [facility] Comment:MRSA target DNA not detected; SA target DNA detected.A MRSA NEGATIVE, SA POSITIVE test result does not precludeMRSA nasal colonization. 08/30/2024 10:3 0 AM EST 08/30/2024 11:03 AM EST us Generic External Data Provider LAB MICROBIOLOGY - GENERAL ORDERABLES Final Result [facility] [address] [facility] [place] [phone] from Last 3 Months Insurance Care Teams Cam Specialist Relationship Specialty Start Date End Date Mi Mo MD [address] [place] [address] [place] [address] PCP - General Family Medicine 10/31/19
--- OUTSIDE RECORDS SUMMARY | 2024-11-08 14:17 | XMS_ITS | Encounter Summary ---
Author Organization [employer] Address [address] [facility] 7[address] [place] [address] Care Team Providers Care Guest Services Manager Name Role Phone Mi Mo MD Primary Care Provider [phone] Reason for Visit * Reason Onset Date Comments Verbal Orders 01/09/2024 Encounter Details Date Type Department Care Team ([facility] Contact Info) Description 01/09/2024 Telephone [facility] MEDICINE [address] [place] [address] Mi Mo MD [address] [place] [address] Verbal Orders Social History Tobacco Use Types [...] - 01/09/2024 3:10 PM EDT Tc from [facility] the [facility] requesting verbal orders for home PT 2 a week for 4 weeks and the 1 a week for 4 weeks please call Mate at [phone] documented in this encounter Plan of Treatment Not on file documented as of this encounter Visit Diagnoses Not on filedocumented in this encounter Additional Health Concerns Assessment Noted Time PHQ-9 Depression Total Score: 0 02/10/20 23 11:07 AM EDT documented as of this encounter Care Teams Guest Services Manager Relationship Specialty Start Date End Date Mi Mo MD [address] [place] [address] PCP - General Family Medicine 10/31/19 documented as of this encounter
--- OUTSIDE RECORDS SUMMARY | 2024-11-08 14:17 | XMS_ITS | Encounter Summary ---
Author Organization [employer] Address [address] [place] [address] 7t [place] [address] Care Team Providers Care Slipper Maker Name Role Phone Mi Mo MD Primary Care Provider [phone] Reason for Visit * Reason Onset Date Comments Med Refill 2024 Encounter Details Date Type Department Care Team ([facility] st Contact Info) Description 2024 Telephone [facility] MEDICINE [address] [place] [address] Mi Mo MD [address] [place] [address] Med Refill Social History Tobacco Use Types [...] 2:36 PM EDT Medications were sent to [facility] #[id number] on 11/24/23 #90 with 3 refills. * Telephone Encounter - Judith Joy - 2024 2:32 PM EDT TC from pt requesting medication refill. Medications needing refill : hydroCHLOROthiazide (HYDRODiuril) 25 MG tablet levothyroxine (Synthroid, Levoxyl) 50 MCG tablet To be sent to: [facility] #[id number] - [place] - 1 COUNTS INCLUDE 234 BEDS AT [facility] OF COUNTS INCLUDE 234 BEDS AT [facility] [place] documented in this encounter Plan of Treatment Not on file documented as of this encounter Visit Diagnoses Not on filedocumented in this encounter Additional Health Concerns Assessment Noted Time PHQ-9 Depression Total Score: 0 02/10/20 23 11:07 AM EDT documented as of this encounter Care Teams Slipper Maker Relationship Specialty Start Date End Date Mi Mo MD [address] [place] [id number] PCP - General Family Medicine 10/31/19 documented as of this encounter
--- OUTSIDE RECORDS SUMMARY | 2024-11-08 14:17 | XMS_ITS | Encounter Summary ---
Author Organization [employer] Address [address] [place] [address] 7t [place] [address] Care Team Providers Care Commercial Account Manager Name Role Phone Mi Mo MD Primary Care Provider [phone] Reason for Visit * Reason Onset Date Comments Pre op 10/27/2023 Encounter Details Date Type Department Care Team ([facility] [place] Contact Info) Description 10/27/2023 Telephone [facility] CHC MED & PEDS [address] [place], [place] [phone] Mi Mo MD [address] [place] [address] Pre op Social History Tobacco Use Types [...] PM EST Returned call to Gabriela at [facility] regarding message below. [...] yes Surgeon's name: Dr gandara Facility name: [facility] Surgeon's office number: [phone] Surgeon's office fax number: [phone] Contact name (person you spoke with): Gabriela from [facility] Last office note from surgeon requested: Yes documented in this encounter Plan of Treatment Not on file documented as of this encounter Visit Diagnoses Not on filedocumented in this encounter Additional Health Concerns Assessment Noted Time PHQ-9 Depression Total Score: 0 02/10/20 23 11:07 AM EDT documented as of this encounter Care Teams Commercial Account Manager Relationship Specialty Start Date End Date Mi Mo MD [address] [place] [address] PCP - General Family Medicine 10/31/19 documented as of this encounter
== END 2024-11-08 11:45 | disposition home or self-care (01) ==
LOC: HO.HOSX 11:44
PROVIDERS: Visit Provider Orthopaedic Surgery
DX: M25.559 Pain in unspecified hip (principal); Z96.641 Presence of right artificial hip joint
CPT/HCPCS: 72170; 99212

== ENCOUNTER 2024-11-08 12:28 | Outpatient (AMB) | payer MEDICARE, SELFPAY ==
--- NOTE | 2024-11-08 12:38 | MHC.OFFVIS ---
Vital Signs 11/08/24 12:40 Height 5 ft 3 in Weight 118 lb BMI 20.9 Intake Visit Reasons: 6WK PO: R MAXIMUS w/NE 10/03/24 Intake Note: Yue is a 79 year old female who presents today for a post operative appointment 6 weeks s/p Right MAXIMUS 10/03/24. Patient reports that she is doing very well with no current concerns Allergies acetaminophen [From Percocet] Allergy (Verified 10/18/24 13:09) Nausea oxycodone [From Percocet] Allergy (Verified 10/18/24 13:09) Nausea regadenoson Adverse Reaction (Intermediate, Verified 10/18/24 13:09) presyncope HPI HPI 6WK PO: R MAXIMUS w/NE 10/03/24: Details: Doing well. Walking comfortably. No pain. [facility] Medical History (Updated 10/15/24 @ 00:00 by Lloyd Elaine) Arthritis GERD (gastroesophageal reflux disease) Asthma Thyroid disease HTN (hypertension) Surgical History H/O colonoscopy S/P total left hip arthroplasty (12/21/23) History of surgery on wrist History of ankle surgery Social History Household Members: Children Housing: House Are you a primary child daycare worker to a significant other at home: No Do you presently have visiting nurse or other home services: No Alcohol intake: current Alcohol intake frequency: holidays/special occasions only Alcohol type: hard liquor Patient Tobacco Use Status: Never used Tobacco service: No Physical Exam Vital Signs: BMI result Body Mass Index 20.9 Extrem Other: inc c/d/i walking comfortably Results Reviewed Results Reviewed: I personally reviewed relevant radiographs. Right MAXIMUS in expected post operative position with no hardware complications or evidence of loosening Assessment & Plan Assessment & Plan (1) Status post total hip replacement, right: Code(s): Z96.641 - Presence of right artificial hip joint Category: Surgical Plan: Doing well. January d/c ASA. f/u 6 weeks Orders: Orders XR pelvis 1-2V Today M25.559 - Pain in unspecified hip Coding Level of Care Code Global (95765) Diagnoses Status post total hip replacement, right Z96.641
[2024-11-08 12:40] VITALS: BMI 20.9
--- OUTSIDE RECORDS SUMMARY | 2024-11-08 14:53 | XMS_ITS | Encounter Summary ---
Author Organization [employer] Address [address] 7[address] [place] [address] Care Team Providers Care Teacher Of The Emotionally Disturbed Name Role Phone Mi Mo MD Primary Care Provider [phone] Encounter Details Date Type Department Care Team (Late st Contact Info) Description 09/18/2024 Orders Only [facility] CHC MED & PEDS [address] [place] [address] Provider, MD [place] Social History Tobacco Use [...] documented as of this encounter Care Teams Teacher Of The Emotionally Disturbed Relationship Specialty Start Date End Date iM Mo MD [address] [place] [id number] PCP - General Family Medicine 10/31/19 documented as of this encounter
--- OUTSIDE RECORDS SUMMARY | 2024-11-08 14:53 | XMS_ITS | Encounter Summary ---
Author Organization [employer] Address [address] [place] [address] 7t [place] [address] Care Team Providers Care Scorer Helper Name Role Phone Mi Mo MD Primary Care Provider [phone] Reason for Visit * Reason Onset Date Comments Pre op 10/27/2023 Encounter Details Date Type Department Care Team ([facility] Contact Info) Description 10/27/2023 Telephone [facility] CHC MED & PEDS [address] [place], [place] [phone] Mi Mo MD [address] [place] [address] Pre op Social History Tobacco Use Types [...] EST Returned call to Gabriela at [facility] regarding message [...] Surgeon's name: Dr gandara Facility name: [facility] Surgeon's office number: [phone] Surgeon's office fax number: [phone] Contact name (person you spoke with): Gabriela from [facility] Last office note from surgeon requested: Yes documented in this encounter Plan of Treatment Not on file documented as of this encounter Visit Diagnoses Not on filedocumented in this encounter Additional Health Concerns Assessment Noted Time PHQ-9 Depression Total Score: 0 02/10/20 23 11:07 AM EDT documented as of this encounter Care Teams Scorer Helper Relationship Specialty Start Date End Date Mi Mo MD [address] [place] [address] PCP - General Family Medicine 10/31/19 documented as of this encounter
--- OUTSIDE RECORDS SUMMARY | 2024-11-08 14:53 | XMS_ITS | Encounter Summary ---
Author Organization [employer] Address [address] [place] [address] 7t [place] [address] Care Team Providers Care Forex Trader Name Role Phone Mi Mo MD Primary Care Provider [phone] Reason for Visit * Reason Onset Date Comments verbal order 01/11/2024 Encounter Details Date Type Department Care Team ([facility] Contact Info) Description 01/11/2024 Telephone [facility] CHC MED & PEDS [address] [place], [place] [phone] Mi Mo MD [address] [place] [address] verbal order Social History Tobacco Use Types [...] 10:35 AM EDT Please advise[facility],OT[facility], Cristiane states that they expect this to go for a full episode which is 60 days. Theseorders are to help pt after recent hip replacement. Thank you in advance. * Telephone Encounter - Caitie Rodriguez - 01/11/2024 4:16 PM EDT Tc from cristiane with [facility] requesting verbal order for start of care. Please contact cristiane at [phone] documented in this encounter Plan of Treatment Not on file documented as of this encounter Visit Diagnoses Not on filedocumented in this encounter Additional Health Concerns Assessment Noted Time PHQ-9 Depression Total Score: 0 02/10/20 23 11:07 AM EDT documented as of this encounter Care Teams Forex Trader Relationship Specialty Start Date End Date Mi Mo MD [address] [place] [address] PCP - General Family Medicine 10/31/19 documented as of this encounter
--- OUTSIDE RECORDS SUMMARY | 2024-11-08 14:53 | XMS_ITS | Encounter Summary ---
Author Organization [employer] Address [address] [place] [address] 7t [place] [address] Care Team Providers Care Bridge Teacher Name Role Phone Mi Mo MD Primary Care Provider [phone] Reason for Visit * Reason Onset Date Comments Med Refill 2024 Encounter Details Date Type Department Care Team ([facility] st Contact Info) Description 2024 Telephone [facility] MEDICINE [address] [place] [address] Mi Mo MD [address] [place] [address] Med Refill Social History Tobacco Use Types [...] 2:36 PM EDT Medications were sent to [facility] #[id number] on 11/24/23 #90 with 3 refills. * Telephone Encounter - Judith Joy - 2024 2:32 PM EDT TC from pt requesting medication refill. Medications needing refill : hydroCHLOROthiazide (HYDRODiuril) 25 MG tablet levothyroxine (Synthroid, Levoxyl) 50 MCG tablet To be sent to: [facility] #[id number] - [place] - [address] [facility] [place] documented in this encounter Plan of Treatment Not on file documented as of this encounter Visit Diagnoses Not on filedocumented in this encounter Additional Health Concerns Assessment Noted Time PHQ-9 Depression Total Score: 0 02/10/20 23 11:07 AM EDT documented as of this encounter Care Teams Bridge Teacher Relationship Specialty Start Date End Date Mi Mo MD [address] [place] [id number] PCP - General Family Medicine 10/31/19 documented as of this encounter
--- OUTSIDE RECORDS SUMMARY | 2024-11-08 14:53 | XMS_ITS | Encounter Summary ---
Author Organization [employer] Address [address] [place] [address] [address] [place] [address] Care Team Providers Care Brim Pouncer Name Role Phone Mi Mo MD Primary Care Provider [phone] Encounter Details Date Type Department Care Team ([facility] st Contact Info) Description 03/14/2023 Orders Only [facility] CHC MED & PEDS [address] [place], [place] [phone] Mi Mo MD [address] [place], [place] [phone] Social History Tobacco Use Types Packs/Day Years [...] documented as of this encounter Care Teams Brim Pouncer Relationship Specialty Start Date End Date Mi Mo MD [address] [place] [address] PCP - General Family Medicine 10/31/19 documented as of this encounter
--- OUTSIDE RECORDS SUMMARY | 2024-11-08 14:53 | XMS_ITS | Clinical Summary ---
Author Organization [employer] Address [address] [place] [address] 7[address] [place] [address] Care Team Providers Care Upset Operator Name Role Phone Mi Mo MD Primary Care Provider [phone] Allergies Active Allergy Reactions Criticality Noted Date [...] Provider, Generic External Data 09/27/2024 Orders Only [facility] External Provider, [facility] 09/18/2024 Telephone [facility] [address] [facility] [place] [address] Mi Mo MD 09/18/2024 Orders Only [facility] [address] [facility] [place] [address] Mi Mo MD Primary hypertension (Primary Dx) 09/18/2024 Orders Only [facility] [address] [facility] [place] [phone] ProviderGlenis MD 09/17/2024 10:15 AM EST Office Visit [facility] [address] [place] [address] Mi Mo MD Primary hypertension (Primary Dx); Mild intermittent asthma without complication; Right hip pain; Preop cardiovascular exam 09/17/2024 Travel 09/14/2024 Telephone [facility] [address] [facility] [place] [address] Mi Mo MD Chart Prep 08/30/2024 Orders [...] included. Sodium 137 135 - 145 mmol/L [facility] Potassium 4.2 3.3 - 5.1 mmol/L [facility] Chloride 102 96 - 108 mmol/L [facility] Carbon Dioxide 29 22 - 29 mmol/L [facility] Anion Gap 10(L) 12 - 20 [facility] Urea Nitrogen (BUN) 27(H) 9 - 16 mg/dL [facility] Creatinine, Serum 0.83 0.5 - 1.4 mg/dL [facility] Creatinine Clr Calc Pharmacy 45.4 [facility] Comment:Provided height and weight: 160.02 cm,53.9 kg.eGFR (calculated from the MDRD study equation) and eCrCl(calculated from the Cockcroft-Gault equation) are based ondifferent parameters and may not yield comparable results.If eCrCl result is absurd, please check patient'sheight/weight. Estimated Glomerular Filt Rate >60 [facility] Comment:Chronic Kidney Disea se: Estimated GFR < 60 mL/min/1.23d3Octudv Kidney Disease: Estimated GFR < 15 mL/min/1.73m2 Glucose Fasting 101(H) 60 - 99 mg/dL [facility] Comment:A fasting glucose fr om 100-125 mg/dl is considered impaired(pre-diabetes). Calcium 8.6 8.4 - 10.2 mg/dL [facility] 10/06/2024 6:02 AM EST 10/06/2024 6:32 AM EST us Generic External Data Provider LAB BLOOD ORDERAB LES Final Result [facility] [address] [place] [phone] * (ABNORMAL) CBC auto differential (10/06/2024 6:02 AM EST) Only the most recent of4 resultswithin the time period is included. White Blood Count 5.4 4.8 - 10.8 X10*3/uL [facility] Red Blood Count 2.52(L) 4.20 - 5.50 X10*6/uL [facility] Hemoglobin 8.1(L) 12.0 - 16.0 g/dl [facility] Hematocrit 24.2(L) 37.0 - 47.0 % [facility] Mean Corpuscular Volume 96.0 80.0 - 98.0 fL [facility] Mean Corpuscular Hemoglobin 32.1 27.0 - 33.0 pg [facility] Mean Corpuscular HGB Conc 33.5 31.0 - 35.0 g/dl [facility] Red Cell Distribution Width 12.3 11.0 - 16.0 % [facility] Platelet Count 180 160 - 400 X10*3/uL [facility] Mean Platelet Volume 9.8 9.4 - 12.3 fL [facility] Neutrophils Percent Auto 51.8 45 - 73 % [facility] Imm Gran Pct Auto 0.6(H) 0.0 - 0.4 % [facility] Lymphocytes Percent Auto 32.1 20 - 40 % [facility] Monocytes Percent Auto 11.4(H) 2 - 11 % [facility] Eosinophils Percent Auto 3.7 0 - 4 % [facility] Basophils Percent Auto 0.4 0 - 2 % [facility] NRBC Pct Auto 0.0 0.0 - 0.2 /100WBC [facility] Neutrophils Absolute Auto 2.8 2.0 - 8.3 x10*3/uL [facility] Imm Gran Abs Auto 0.03 0.00 - 0.03 X10*3/uL [facility] Lymphocytes Absolute Auto 1.7 1.2 - 4.9 X10*3/uL [facility] Monocytes Absolute Auto 0.6 0.1 - 1.2 X10*3/uL [facility] Eosinophils Absolute Auto 0.2 0.0 - 0.4 X10*3/uL [facility] Basophils Absolute Auto 0.0 0.0 - 0.2 X10*3/uL [facility] NRBC Abs Auto 0.000 0.0 - 0.012 X10*3/uL [facility] 10/06/2024 6:02 AM EST 10/06/2024 6:32 AM EST us Generic External Data Provider LAB BLOOD ORDERAB LES Final Result [facility] [address] [place] [address] [phone] * High Sensitivity Troponin I (10/04/2024 7:39 AM EST) Only the most recent of2 resultswithin the time period is included. TROPONIN I HIGH SENSITIVITY 7.4 <3.5 - 17.0 ng/L [facility] Comment:The Salas high sens itivity Troponin-I results should beused in conjunction with other diagnostic information suchas ECG, clinical observations and information, and patientsymptoms to aid in the diagnosis of CT. 10/04/2024 7:39 AM EST 10/04/2024 7:50 AM EST us Generic External Data Provider LAB BLOOD ORDERAB LES Final Result [facility] [address] [place] [phone] * (ABNORMAL) Comprehensive Metabolic Panel (10/03/2024 7:25 PM EST) Pathologist [facility] Sodium 136 135 - 145 mmol/L [facility] Potassium 4.0 3.3 - 5.1 mmol/L [facility] Chloride 103 96 - 108 mmol/L [facility] Carbon Dioxide 26 22 - 29 mmol/L [facility] Anion Gap 11(L) 12 - 20 [facility] Urea Nitrogen (BUN) 17(H) 9 - 16 mg/dL [facility] Creatinine, Serum 0.78 0.5 - 1.4 mg/dL [facility] Creatinine Clr Calc Pharmacy 48.4 [facility] Comment:Provided height and weight: 160.02 cm,53.9 kg.eGFR (calculated from the MDRD study equation) and eCrCl(calculated from the Cockcroft-Gault equation) are based ondifferent parameters and may not yield comparable results.If eCrCl result is absurd, please check patient'sheight/weight. Estimated Glomerular Filt Rate >60 [facility] Comment:Chronic Kidney Disea se: Estimated GFR < 60 mL/min/1.74i1Aqvqoc Kidney Disease: Estimated GFR < 15 mL/min/1.73m2 Glucose 181(H) 60 - 115 mg/dL [facility] Calcium 9.1 8.4 - 10.2 mg/dL [facility] Bilirubin, Total 1.2(H) 0.0 - 1.0 mg/dL [facility] Aspartate Amino Transferase 27 5 - 31 U/L [facility] Alanine Aminotransferase 13 0 - 31 U/L [facility] Total Protein 6.5 6.5 - 8.0 g/dL [facility] Albumin Level 3.7 3.5 - 5.0 g/dL [facility] Alkaline Phosphatase 102 39 - 117 U/L [facility] 10/03/2024 7:25 PM EST 10/03/2024 7:32 PM EST us Generic External Data Provider LAB BLOOD ORDERAB LES Final Result [facility] [address] [place] [address] [phone] * XR Pelvis 1-2 Views (10/03/2024 4:20 PM EST) Anatomical Region Laterality Modality Body, Pelvis Radiographic Renuka ging 10/03/2024 4:20 PM EST Narrative 10/03/2024 4:42 PM EST ? [facility] ?[address] ?[place] [address] ?XRay Report ? Signed ? Patient: Farnaz,Yue A ?MR#: [id number] ?? [id number] ? : 1945 ?Acct:[id number] ? Age/Sex: 79 / F ?ADM Date: 10/03/24 ? Loc: HO.S3 ?367-1 ? Attending Dr: Scooby Marina MD ? Ordering Physician: Geno Lima PA-C ?? Date of Service: 10/03/24 ?? Procedure(s): XR pelvis 1-2V ?? Accession Number(s): [id number] ? cc: Geno Lima PA-C; Mi Mo [...] DD/ 1620 ? TD/TT: 10/03/24 1630 ? Hoop Cutter: MSM ? Procedure Note Anita, Image - 10/03/2024 [place] [address] XRay Report Signed Patient: Yue Osei AMR#: [id number] : 5Acct:[id number] Age/Sex: 79 / FADM Date: 10/03/24 Loc: .S3 367-[address]: Scooby Marina MD Ordering Physician: Geno Lima PA-C Date of Service: 10/03/24 Procedure(s): XR pelvis 1-2V Accession Number(s): [id number] cc: Geno Lima PA-C; Mi Mo MD [...] 10/03/24 1639 DD/ 1620 TD/TT: 10/03/24 1630 Hoop Cutter: NAHUN us [facility] External Provider IMG XR PROCEDURES Final Result * (ABNORMAL) Hemoglobin and Hematocrit (10/03/2024 9:34 AM EST) Hemoglobin 11.2(L) 12.0 - 16.0 g/dl [facility] Hematocrit 33.5(L) 37.0 - 47.0 % [facility] 10/03/2024 9:34 AM EST 10/03/2024 9:38 AM EST Generic External Data Provider LAB BLOOD ORDERAB LES Final Result Performing Organization Address [facility] de Phone Number [facility] [address] [place] [phone] * Type and screen (09/27/2024 11:35 AM EST) Blood Type BP [facility] Antibody Screen NEGATIVE [facility] 09/27/2024 11:3 5 AM EST 09/27/2024 12:09 PM EST Narrative [facility] - 09/27/2024 2:47 PM EST WITNESSED BY ALONZO:Call Blood Bank (ext. [phone]) to band patient on admission.Type and Screen in effect until 2300 on [id number] expiration changed by NATY on 09/27/24Reason: PAT SPEC Generic External Data Provider LAB BLOOD BANK TE ST ORDERABLES Final Result Performing Organization Address [facility]/ZIP Co de Phone Number [facility] [address] [place] [phone] * XR Hip right with Pelvis 1 view (09/27/2024 9:48 AM EST) Anatomical Region Laterality Modality Lower Extremities, Hip Bilateral Radiograp hic Imaging 09/27/2024 9:48 AM EST Narrative 09/27/2024 2:39 PM EST ? [facility] ?[address] ?[place] [address] ?XRay Report ? Signed ? Patient: Spearman,Yue A ?MR#: [id number] ?? [id number] ? : 1945 ?Acct:[id number] ? Age/Sex: 79 / F ?ADM Date: 09/27/24 ? Loc: HO.LAB ? Attending Dr: Geno Lima PA-C ? Ordering Physician: Geno Lima PA-C ?? Date of Service: 09/27/24 ?? Procedure(s): XR hip RT w PEL 1V ?? Accession Number(s): [id number] ? cc: Geno Lima PA-C; Mi Mo [...] DD/ 0948 ? TD/TT: 09/27/24 0950 ? Hoop Cutter: ? Procedure Note Anita, Vipul - 09/27/[address] [address] XRay Report Signed Patient: Yue Osei AMR#: [id number] : 5Acct:[id number] Age/Sex: 79 / FADM Date: 09/27/24 Loc: HO.LAB Attending Dr: Geno Lima PA-C Ordering Physician: Geno Lima PA-C Date of Service: 09/27/24 Procedure(s): XR hip RT w PEL 1V Accession Number(s): [id number] cc: Geno Lima PA-C; Mi Mo MD [...] 09/27/24 1437 DD/ 0948 TD/TT: 09/27/24 0950 Hoop Cutter: [facility] External Provider IMG XR PROCEDURES Final Result * (ABNORMAL) Hepatic Function Panel (09/17/2024 11:03 AM EST) Bilirubin, Total 1.3(H) 0.0 - 1.0 mg/dL [facility] Bilirubin, Direct 0.4 0.0 - 0.5 mg/dL [facility] Aspartate Amino Transferase 32(H) 5 - 31 U/L [facility] Alanine Aminotransferase 11 0 - 31 U/L [facility] Total Protein 7.0 6.5 - 8.0 g/dL [facility] Albumin Level 4.1 3.5 - 5.0 g/dL [facility] Alkaline Phosphatase 93 39 - 117 U/L [facility] Blood Venous blood specimen / Unknown 09/17/2024 11:03 AM EST 09/17/2024 2:20 PM EST us Mi Mo MD LAB BLOOD ORDERABLES Final Resul t [facility] [address] [place] [phone] * (ABNORMAL) Lipid Panel, Standard (09/17/2024 11:03 AM EST) Triglycerides 100 <150 mg/dL [facility] Comment:Desirable Triglyceri de: less than 150 mg/dLBorderline High Triglyceride 150-199 mg/dLHigh Triglyceride: 200-499 mg/dLVery High Triglyceride: greater than or equal to 5OO mg/dL Cholesterol 199 <200 mg/dL [facility] Comment:Desirable Cholestero l: less than 200 mg/dLBorderline High Cholesterol: 200-239 mg/dLHigh Cholesterol: greater than 239 mg/dL LDL Cholesterol Calculated 115(H) <100 mg/dL [facility] Comment:Desirable LDL: less than 100 mg/dLNear Optimal/Above Optimal LDL: 110- 129 mg/dLBorderline High LDL: 130-159 mg/dLHigh LDL: 160-189 mg/dLVery High LDL: greater than or equal to 190 mg/dL HDL Cholesterol 64 >40 mg/dL [facility] Comment:Desirable HDL: great er than 40 mg/dL Note: This HDL assay may give artificially low results in patients with liver disease. Blood Venous blood specimen / Unknown 09/17/2024 11:03 AM EST 09/17/2024 2:20 PM EST us Mi Mo MD LAB BLOOD ORDERABLES Final Resul t Performing Organization Address [facility] de Phone Number [facility] [address] [place] [address] [phone] * (ABNORMAL) Basic Metabolic Panel (09/17/2024 11:03 AM EST) Only the most recent of2 resultswithin the time period is included. Sodium 139 135 - 145 mmol/L [facility] Potassium 3.8 3.3 - 5.1 mmol/L [facility] Chloride 104 96 - 108 mmol/L [facility] Carbon Dioxide 30(H) 22 - 29 mmol/L [facility] Anion Gap 9(L) 12 - 20 [facility] Urea Nitrogen (BUN) 25(H) 9 - 16 mg/dL [facility] Creatinine, Serum 0.81 0.5 - 1.4 mg/dL [facility] Estimated Glomerular Filt Rate >60 [facility] Comment:Chronic Kidney Disea se: Estimated GFR < 60 mL/min/1.34q5Qyznfz Kidney Disease: Estimated GFR < 15 mL/min/1.73m2 Glucose 103 60 - 115 mg/dL [facility] Calcium 9.9 8.4 - 10.2 mg/dL [facility] Blood Venous blood specimen / Unknown 09/17/2024 11:03 AM EST 09/17/2024 2:20 PM EST Mi Mo MD LAB BLOOD ORDERABLES Final Resul t Performing Organization Address [facility] Co de Phone Number [facility] [address] [place] [address] [phone] * ECG 12 lead (09/17/2024 10:24 AM EST) Only the most recent of2 resultswithin the time period is included. Mi Pinzon MD - 09/17/2024 10:24 AM EST NSR No acute Process Mi Mo MD ECG ORDERABLES Final Result * (ABNORMAL) CBC (08/30/2024 11:42 AM EST) White Blood Count 5.9 4.8 - 10.8 X10*3/uL [facility] Red Blood Count 4.03(L) 4.20 - 5.50 X10*6/uL [facility] Hemoglobin 12.6 12.0 - 16.0 g/dl [facility] Hematocrit 38.5 37.0 - 47.0 % [facility] Mean Corpuscular Volume 95.5 80.0 - 98.0 fL [facility] Mean Corpuscular Hemoglobin 31.3 27.0 - 33.0 pg [facility] Mean Corpuscular HGB Conc 32.7 31.0 - 35.0 g/dl [facility] Red Cell Distribution Width 12.7 11.0 - 16.0 % [facility] Platelet Count 237 160 - 400 X10*3/uL [facility] Mean Platelet Volume 10.0 9.4 - 12.3 fL [facility] NRBC Pct Auto 0.0 0.0 - 0.2 /100WBC [facility] NRBC Abs Auto 0.000 0.0 - 0.012 X10*3/uL [facility] 08/30/2024 11:4 2 AM EST 08/30/2024 11:42 AM EST us Generic External Data Provider LAB BLOOD ORDERAB LES Final Result Performing Organization Address City/State/[facility] Co de Phone Number [facility] [address] [place] [phone] * (ABNORMAL) MRSA Nasal Screen (08/30/2024 10:30 AM EST) MRSA Nasal PCR NEGATIVE Negative [facility] SA Nasal PCR POSITIVE(A) Negative [facility] MRSA Interpretation SEE NOTE [facility] Comment:MRSA target DNA not detected; SA target DNA detected.A MRSA NEGATIVE, SA POSITIVE test result does not precludeMRSA nasal colonization. 08/30/2024 10:3 0 AM EST 08/30/2024 11:03 AM EST us Generic External Data Provider LAB MICROBIOLOGY - GENERAL ORDERABLES Final Result [facility] [address] [place] [address] [phone] from Last 3 Months Insurance Care Teams Upset Operator Relationship Specialty Start Date End Date Mi Mo MD [address] [place] [address] [place] [address] PCP - General Family Medicine 10/31/19
--- OUTSIDE RECORDS SUMMARY | 2024-11-08 14:53 | XMS_ITS | Encounter Summary ---
Author Organization [employer] Address [address] [facility] [address] [place] [address] Care Team Providers Care Pipe Fitter Maintenance Name Role Phone Mi Mo MD Primary Care Provider [phone] Reason for Visit * Reason Onset Date Comments Verbal Orders 01/09/2024 Encounter Details Date Type Department Care Team ([facility] Contact Info) Description 01/09/2024 Telephone [facility] [address] [place] [address] Mi Mo MD [address] [place] [address] Verbal Orders Social History Tobacco Use Types [...] - 01/09/2024 3:10 PM EDT Tc from [facility] the at [facility] requesting verbal orders for home PT 2 a week for 4 weeks and the 1 a week for 4 weeks please call Mate at [phone] documented in this encounter Plan of Treatment Not on file documented as of this encounter Visit Diagnoses Not on filedocumented in this encounter Additional Health Concerns Assessment Noted Time PHQ-9 Depression Total Score: 0 02/10/20 23 11:07 AM EDT documented as of this encounter Care Teams Pipe Fitter Maintenance Relationship Specialty Start Date End Date Mi Mo MD [address] [place] [address] PCP - General Family Medicine 10/31/19 documented as of this encounter
== END 2024-11-08 12:48 | disposition home or self-care (01) ==
PROVIDERS: PCP Student in an Organized Health Care Education/Training Program; Visit Provider Orthopaedic Surgery
DX: Z96.641 Presence of right artificial hip joint (principal)
CPT/HCPCS: 99024

== ENCOUNTER → 2024-11-08 12:31 | Outpatient (BNV) | payer MEDICARE, SELFPAY | PROVIDERS: Visit Provider Radiology Diagnostic Radiology | DX: Z96.643 Presence of artificial hip joint, bilateral (principal) | CPT/HCPCS: 72170 ==

== ENCOUNTER 2024-12-20 12:26 | Outpatient (AMB) | payer MEDICARE, SELFPAY ==
--- NOTE | 2024-12-20 12:44 | A.OFFVIS_ITS ---
Vital Signs 12/20/24 13:05 Height 5 ft 3 in Weight 118 lb BMI 20.9 Intake Visit Reasons: PO: R MAXIMUS w/NE 10/03/24 Intake Note: Yue is a 79 year old female who presents today for a post operative appointment 6 weeks s/p Right MAXIMUS 10/03/24. Patient reports she is doing well. She is not having pain at the moment. Allergies acetaminophen [From Percocet] Allergy (Verified 12/20/24 13:05) Nausea oxycodone [From Percocet] Allergy (Verified 12/20/24 13:05) Nausea regadenoson Adverse Reaction (Intermediate, Verified 12/20/24 13:05) presyncope HPI HPI PO: R MAXIMUS w/NE 10/03/24: Details: Ms. Osei is a 79-year-old female who presents the office today for routine follow-up status post right total hip arthroplasty performed on 10/03/[address] Marina. Patient continues to use a walker to assist with ambulation and gait instability. She complains of no pain or difficulties with ambulation. She is overall very happy with her progress postoperatively. She continues to work on her physical therapy exercises with the goal to regain as much strength as possible postoperatively. [facility] Medical History (Updated 10/15/24 @ 00:00 by Lloyd Elaine) Arthritis GERD (gastroesophageal reflux disease) Asthma Thyroid disease HTN (hypertension) Surgical History H/O colonoscopy S/P total left hip arthroplasty (12/21/23) History of surgery on wrist History of ankle surgery Social History Household Members: Children Housing: House Are you a primary respiratory care technician to a significant other at home: No Do you presently have visiting nurse or other home services: No Alcohol intake: current Alcohol intake frequency: holidays/special occasions only Alcohol type: hard liquor Patient Tobacco Use Status: Never used Tobacco service: No Review of Systems Const All systems reviewed & are unremarkable except as noted in HPI and below Physical Exam Vital Signs: BMI result Body Mass Index 20.9 Extrem Other: Right lower extremity: Able to perform straight leg raise. Good internal exte rnal rotation. Ambulating with the use of a walker well. NVI. Assessment & Plan Assessment & Plan (1) Status post total hip replacement, right: Code(s): Z96.641 - Presence of right artificial hip joint Category: Surgical Plan Ms. Osei is a 79-year-old female who presents the office today for routine follow-up status post right total hip arthroplasty performed on 10/03/[address] Marina. Patient continues to use a walker to assist with ambulation and gait instability. She complains of no pain or difficulties with ambulation. She is overall very happy with her progress postoperatively. She continues to work on her physical therapy exercises with the goal to regain as much strength as possible postoperatively. Patient is overall doing very well. While in the office today we discussed continuation of physical therapy exercises that she has learned in the form of a home exercise program. I would like to see her again in 2 months which would bring her to 6 months postoperatively, sooner if needed. X-rays of the right hip which were obtained while in the office today and were reviewed by me, Geno Lima PA-C, revealed intact right total hip arthroplasty with satisfactory alignment. No evidence of hardware loosening or periprosthetic fracture. Orders: Orders XR hip RT min 2V Today M25.559 - Pain in unspecified hip Coding Level of Care Code Est Pt Level 3 (41715) Diagnoses Status post total hip replacement, right Z96.641
[2024-12-20 13:05] VITALS: BMI 20.9
--- OUTSIDE RECORDS SUMMARY | 2024-12-20 14:54 | XMS_ITS | Encounter Summary ---
Author Organization [employer] Address [address] [place] [address] [address] [place] [address] Care Team Providers Care Cloth Finisher Name Role Phone Mi Mo MD Primary Care Provider [phone] Reason for Visit * Reason Onset Date Comments verbal order 01/11/2024 Encounter Details Date Type Department Care Team ([facility] Contact Info) Description 01/11/2024 Telephone [facility] [address] [place], [place] [phone] Mi Mo MD [address] [place] [address] verbal order Social History Tobacco Use Types [...] 10:35 AM EDT Please advise[facility] for [facility], PT,OT, medical dermatologist, Cristiane states that they expect this to go for a full episode which is 60 days. Theseorders are to help pt after recent hip replacement. Thank you in advance. * Telephone Encounter - Caitie Rodriguez - 01/11/2024 4:16 PM EDT Tc from [facility] requesting verbal order for start of care. Please contact cristiane at [phone] documented in this encounter Plan of Treatment Not on file documented as of this encounter Visit Diagnoses Not on filedocumented in this encounter Additional Health Concerns Assessment Noted Time PHQ-9 Depression Total Score: 0 02/10/20 23 11:07 AM EDT documented as of this encounter Care Teams Cloth Finisher Relationship Specialty Start Date End Date Mi Mo MD [address] [place] [address] PCP - General Family Medicine 10/31/19 documented as of this encounter
--- OUTSIDE RECORDS SUMMARY | 2024-12-20 14:54 | XMS_ITS | Encounter Summary ---
Author Organization [employer] Address [address] [place] [address] 7t [place] [address] Care Team Providers Care Automotive Mechanical Engineer Name Role Phone Mi Mo MD Primary Care Provider [phone] Reason for Visit * Reason Onset Date Comments Pre op 10/27/2023 Encounter Details Date Type Department Care Team ([facility] Contact Info) Description 10/27/2023 Telephone [facility] CHC MED & PEDS [address] [place], [place] [phone] Mi Mo MD [address] [place] [address] Pre op Social History Tobacco Use Types [...] PM EST Returned call to Gabriela at [facility] regarding message below. Confirmed information below [...] yes Surgeon's name: Dr gandara Facility name: [facility] Surgeon's office number: [phone] Surgeon's office fax number: [phone] Contact name (person you spoke with): Gabriela from [facility] ortho Last office note from surgeon requested: Yes documented in this encounter Plan of Treatment Not on file documented as of this encounter Visit Diagnoses Not on filedocumented in this encounter Additional Health Concerns Assessment Noted Time PHQ-9 Depression Total Score: 0 02/10/20 23 11:07 AM EDT documented as of this encounter Care Teams Automotive Mechanical Engineer Relationship Specialty Start Date End Date Mi Mo MD [address] [place] [address] PCP - General Family Medicine 10/31/19 documented as of this encounter
--- OUTSIDE RECORDS SUMMARY | 2024-12-20 14:54 | XMS_ITS | Encounter Summary ---
Author Organization [employer] Address [address] [facility] 7t [place] [address] Care Team Providers Care Ems Manager Name Role Phone Mi Mo MD Primary Care Provider [phone] Reason for Visit * Reason Onset Date Comments Verbal Orders 01/09/2024 Encounter Details Date Type Department Care Team ([facility] Contact Info) Description 01/09/2024 Telephone [facility] MEDICINE [address] [place] [address] Mi Mo MD [address] [place] [address] Verbal Orders Social History Tobacco Use Types [...] - 01/09/2024 3:10 PM EDT Tc from [facility] the at [facility] requesting verbal orders for home PT 2 a week for 4 weeks and the 1 a week for 4 weeks please call Mate at [phone] documented in this encounter Plan of Treatment Not on file documented as of this encounter Visit Diagnoses Not on filedocumented in this encounter Additional Health Concerns Assessment Noted Time PHQ-9 Depression Total Score: 0 02/10/20 23 11:07 AM EDT documented as of this encounter Care Teams Ems Manager Relationship Specialty Start Date End Date Mi Mo MD [address] [place] [address] PCP - General Family Medicine 10/31/19 documented as of this encounter
--- OUTSIDE RECORDS SUMMARY | 2024-12-20 14:54 | XMS_ITS | Encounter Summary ---
Author Organization [employer] Address [address] [facility] 7t [place] [address] Care Team Providers Care Coffee Weigher Name Role Phone Mi Mo MD Primary Care Provider [phone] Encounter Details Date Type Department Care Team (Late st Contact Info) Description 09/18/2024 Orders Only [facility] CHC MED & PEDS [address] [place] [address] Provider, MD [place] Social History Tobacco Use [...] documented as of this encounter Care Teams Coffee Weigher Relationship Specialty Start Date End Date iM Mo MD [address] [place] [phone] PCP - General Family Medicine 10/31/19 documented as of this encounter
--- OUTSIDE RECORDS SUMMARY | 2024-12-20 14:54 | XMS_ITS | Clinical Summary ---
Author Organization [employer] Address [address] [place] [address] 7t [place] [address] Care Team Providers Care Dirt Shoveler Name Role Phone Mi Mo MD Primary Care Provider [phone] Allergies Active Allergy Reactions Criticality Noted Date [...] Provider, Generic External Data 09/27/2024 Orders Only [facility] External Provider, [facility] from Last 3 Months Social History Tobacco [...] 1 VIEW Routine 09/27/2024 9:48 AM EST LIPID PANEL, STANDARD Routine 09/17/2024 11:03 AM EST Primary hypertension from Last 3 Months or Most Recently Relevant to Health Maintenance Results * (ABNORMAL) Basic Metabolic Panel, Fasting (10/06/2024 6:02 AM EST) Only the most recent of3 resultswithin the time period is included. Sodium 137 135 - 145 mmol/L [facility] Potassium 4.2 3.3 - 5.1 mmol/L [facility] Chloride 102 96 - 108 mmol/L [facility] Carbon Dioxide 29 22 - 29 mmol/L [facility] Anion Gap 10(L) 12 - 20 [facility] Urea Nitrogen (BUN) 27(H) 9 - 16 mg/dL [facility] Creatinine, Serum 0.83 0.5 - 1.4 mg/dL [facility] Creatinine Clr Calc Pharmacy 45.4 [facility] Comment:Provided height and weight: 160.02 cm,53.9 kg.eGFR (calculated from the MDRD study equation) and eCrCl(calculated from the Cockcroft-Gault equation) are based ondifferent parameters and may not yield comparable results.If eCrCl result is absurd, please check patient'sheight/weight. Estimated Glomerular Filt Rate >60 [facility] Comment:Chronic Kidney Disea se: Estimated GFR < 60 mL/min/1.44o8Posdrd Kidney Disease: Estimated GFR < 15 mL/min/1.73m2 Glucose Fasting 101(H) 60 - 99 mg/dL [facility] Comment:A fasting glucose fr om 100-125 mg/dl is considered impaired(pre-diabetes). Calcium 8.6 8.4 - 10.2 mg/dL [facility] 10/06/2024 6:02 AM EST 10/06/2024 6:32 AM EST us Generic External Data Provider LAB BLOOD ORDERAB LES Final Result [facility] [address] [place] [phone] * (ABNORMAL) CBC auto differential (10/06/2024 6:02 AM EST) Only the most recent of4 resultswithin the time period is included. White Blood Count 5.4 4.8 - 10.8 X10*3/uL [facility] Red Blood Count 2.52(L) 4.20 - 5.50 X10*6/uL [facility] Hemoglobin 8.1(L) 12.0 - 16.0 g/dl [facility] Hematocrit 24.2(L) 37.0 - 47.0 % [facility] Mean Corpuscular Volume 96.0 80.0 - 98.0 fL [facility] Mean Corpuscular Hemoglobin 32.1 27.0 - 33.0 pg [facility] Mean Corpuscular HGB Conc 33.5 31.0 - 35.0 g/dl [facility] Red Cell Distribution Width 12.3 11.0 - 16.0 % [facility] Platelet Count 180 160 - 400 X10*3/uL [facility] Mean Platelet Volume 9.8 9.4 - 12.3 fL [facility] Neutrophils Percent Auto 51.8 45 - 73 % [facility] Imm Gran Pct Auto 0.6(H) 0.0 - 0.4 % [facility] Lymphocytes Percent Auto 32.1 20 - 40 % [facility] Monocytes Percent Auto 11.4(H) 2 - 11 % [facility] Eosinophils Percent Auto 3.7 0 - 4 % [facility] Basophils Percent Auto 0.4 0 - 2 % [facility] NRBC Pct Auto 0.0 0.0 - 0.2 /100WBC [facility] Neutrophils Absolute Auto 2.8 2.0 - 8.3 x10*3/uL [facility] Imm Gran Abs Auto 0.03 0.00 - 0.03 X10*3/uL [facility] Lymphocytes Absolute Auto 1.7 1.2 - 4.9 X10*3/uL [facility] Monocytes Absolute Auto 0.6 0.1 - 1.2 X10*3/uL [facility] Eosinophils Absolute Auto 0.2 0.0 - 0.4 X10*3/uL [facility] Basophils Absolute Auto 0.0 0.0 - 0.2 X10*3/uL [facility] NRBC Abs Auto 0.000 0.0 - 0.012 X10*3/uL [facility] 10/06/2024 6:02 AM EST 10/06/2024 6:32 AM EST us Generic External Data Provider LAB BLOOD ORDERAB LES Final Result Performing Organization Address [facility]/ZIP Co de Phone Number [facility] [address] [place] [phone] * High Sensitivity Troponin I (10/04/2024 7:39 AM EST) Only the most recent of2 resultswithin the time period is included. Pathologist [facility] TROPONIN I HIGH SENSITIVITY 7.4 <3.5 - 17.0 ng/L [facility] Comment:The Salas high sens itivity Troponin-I results should beused in conjunction with other diagnostic information suchas ECG, clinical observations and information, and patientsymptoms to aid in the diagnosis of CO. 10/04/2024 7:39 AM EST 10/04/2024 7:50 AM EST [employer] External Data Provider LAB BLOOD ORDERAB LES Final Result Performing Organization Address [facility] Co de Phone Number [facility] [address] [place] [phone] * (ABNORMAL) Comprehensive Metabolic Panel (10/03/2024 7:25 PM EST) [facility] Sodium 136 135 - 145 mmol/L [facility] Potassium 4.0 3.3 - 5.1 mmol/L [facility] Chloride 103 96 - 108 mmol/L [facility] Carbon Dioxide 26 22 - 29 mmol/L [facility] Anion Gap 11(L) 12 - 20 [facility] Urea Nitrogen (BUN) 17(H) 9 - 16 mg/dL [facility] Creatinine, Serum 0.78 0.5 - 1.4 mg/dL [facility] Creatinine Clr Calc Pharmacy 48.4 [facility] Comment:Provided height and weight: 160.02 cm,53.9 kg.eGFR (calculated from the MDRD study equation) and eCrCl(calculated from the Cockcroft-Gault equation) are based ondifferent parameters and may not yield comparable results.If eCrCl result is absurd, please check patient'sheight/weight. Estimated Glomerular Filt Rate >60 [facility] Comment:Chronic Kidney Disea se: Estimated GFR < 60 mL/min/1.70n5Bhojxm Kidney Disease: Estimated GFR < 15 mL/min/1.73m2 Glucose 181(H) 60 - 115 mg/dL [facility] Calcium 9.1 8.4 - 10.2 mg/dL [facility] Bilirubin, Total 1.2(H) 0.0 - 1.0 mg/dL [facility] Aspartate Amino Transferase 27 5 - 31 U/L [facility] Alanine Aminotransferase 13 0 - 31 U/L [facility] Total Protein 6.5 6.5 - 8.0 g/dL [facility] Albumin Level 3.7 3.5 - 5.0 g/dL [facility] Alkaline Phosphatase 102 39 - 117 U/L [facility] 10/03/2024 7:25 PM EST 10/03/2024 7:32 PM EST us Generic External Data Provider LAB BLOOD ORDERAB LES Final Result [facility] [address] [place] [address] [phone] * XR Pelvis 1-2 Views (10/03/2024 4:20 PM EST) Anatomical Region Laterality Modality Body, Pelvis Radiographic Renuka ging 10/03/2024 4:20 PM EST Narrative 10/03/2024 4:42 PM EST ? [facility] ?[address] ?[place] [address] ?XRay Report ? Signed ? Patient: Farnaz,Yue A ?MR#: [id number] ?? [id number] ? : 1945 ?Acct:[id number] ? Age/Sex: 79 / F ?ADM Date: 01/22/25 ? Loc: HO.S3 ?367-1 ? Attending Dr: Scooby Marina MD ? Ordering Physician: Geno Lima PA-C ?? Date of Service: 10/03/24 ?? Procedure(s): XR pelvis 1-2V ?? Accession Number(s): [id number] ? cc: Geno Lima PA-C; Mi Mo [...] DD/ 1620 ? TD/TT: 10/03/24 1630 ? Physical Therapy Aide: MSM ? Procedure Note Anita, Image - 10/03/2024 [place] [address] XRay Report Signed Patient: Yue Osei AMR#: [id number] : 5Acct:[id number] Age/Sex: 79 / FADM Date: 10/03/24 Loc: .S3 367-[address]: Scooby Marina MD Ordering Physician: Geno Lima PA-C Date of Service: 10/03/24 Procedure(s): XR pelvis 1-2V Accession Number(s): [id number] cc: Geno Lima PA-C; Mi Mo MD [...] Johan Moon MD 10/03/2024 04:39 PM EST RP Dictated By: Johan Moon MD Signed By: <Electronically signed by Johan Moon MD in OV> 10/03/24 1639 DD/ 1620 TD/TT: 10/03/24 1630 Physical Therapy Aide: NAHUN us [facility] External Provider IMG XR PROCEDURES Final Result * (ABNORMAL) Hemoglobin and Hematocrit (10/03/2024 9:34 AM EST) Hemoglobin 11.2(L) 12.0 - 16.0 g/dl [facility] Hematocrit 33.5(L) 37.0 - 47.0 % [facility] 10/03/2024 9:34 AM EST 10/03/2024 9:38 AM EST Generic External Data Provider LAB BLOOD ORDERAB LES Final Result Performing Organization Address City/State/[facility] Co de Phone Number [facility] [address] [place] [phone] * Type and screen (09/27/2024 11:35 AM EST) Blood Type BP [facility] Antibody Screen NEGATIVE [facility] 09/27/2024 11:3 5 AM EST 09/27/2024 12:09 PM EST Narrative [facility] - 09/27/2024 2:47 PM EST WITNESSED BY ALONZO:Call Blood Bank (ext. [phone]) to band patient on admission.Type and Screen in effect until 2300 on [id number] expiration changed by NATY on 09/27/24Reason: PAT SPEC Generic External Data Provider LAB BLOOD BANK TE ST ORDERABLES Final Result [facility] [address] [place] [address] [phone] * XR Hip right with Pelvis 1 view (09/27/2024 9:48 AM EST) Anatomical Region Laterality Modality Lower Extremities, Hip Bilateral Radiograp hic Imaging 09/27/2024 9:48 AM EST Narrative 09/27/2024 2:39 PM EST ? [facility] ?[address] ?[place] [address] ?XRay Report ? Signed ? Patient: Yue Osei A ?MR#: [id number] ?? [id number] ? : 1945 ?Acct:[id number] ? Age/Sex: 79 / F ?ADM Date: 09/27/24 ? Loc: HO.LAB ? Attending Dr: Geno Lima PA-C ? Ordering Physician: Geno Lima PA-C ?? Date of Service: 09/27/24 ?? Procedure(s): XR hip RT w PEL 1V ?? Accession Number(s): [id number] ? cc: Geno Lima PA-C; Mi Mo [...] DD/ 0948 ? TD/TT: 09/27/24 0950 ? Physical Therapy Aide: ? Procedure Note Anita, Image - 09/27/[address] [address] XRay Report Signed Patient: Yue Osei AMR#: [id number] : 5Acct:[id number] Age/Sex: 79 / FADM Date: 09/27/24 Loc: HO.LAB Attending Dr: Geno Lima PA-C Ordering Physician: Geno Lima PA-C Date of Service: 09/27/24 Procedure(s): XR hip RT w PEL 1V Accession Number(s): [id number] cc: Geno Lima PA-C; Mi Mo MD [...] 09/27/24 1437 DD/ 0948 TD/TT: 09/27/24 0950 Physical Therapy Aide: [facility] External Provider IMG XR PROCEDURES Final Result * (ABNORMAL) Lipid Panel, Standard (09/17/2024 11:03 AM EST) Triglycerides 100 <150 mg/dL [facility] Comment:Desirable Triglyceri de: less than 150 mg/dLBorderline High Triglyceride 150-199 mg/dLHigh Triglyceride: 200-499 mg/dLVery High Triglyceride: greater than or equal to 5OO mg/dL Cholesterol 199 <200 mg/dL [facility] Comment:Desirable Cholestero l: less than 200 mg/dLBorderline High Cholesterol: 200-239 mg/dLHigh Cholesterol: greater than 239 mg/dL LDL Cholesterol Calculated 115(H) <100 mg/dL [facility] Comment:Desirable LDL: less than 100 mg/dLNear Optimal/Above Optimal LDL: 110- 129 mg/dLBorderline High LDL: 130-159 mg/dLHigh LDL: 160-189 mg/dLVery High LDL: greater than or equal to 190 mg/dL HDL Cholesterol 64 >40 mg/dL [facility] Comment:Desirable HDL: great er than 40 mg/dL Note: This HDL assay may give artificially low results in patients with liver disease. Blood Venous blood specimen / Unknown 09/17/2024 11:03 AM EST 09/17/2024 2:20 PM EST us Mi Mo MD LAB BLOOD ORDERABLES Final Resul t [facility] [address] [place] [address] [phone] from Last 3 Months or Most Recently Relevant to Health Maintenance Insurance [facility] MEDICARE ADVANTAGE HMO * Guarantor: Yue Osei Account Type Relation to Patient Date of Phone Billing Address Personal/Family Self [address] Care Teams Dirt Shoveler Relationship Specialty Start Date End Date Mi Mo MD [address] [place] [phone] PCP - General Family Medicine 10/31/19
--- OUTSIDE RECORDS SUMMARY | 2024-12-20 14:54 | XMS_ITS | Encounter Summary ---
Author Organization [employer] Address [address] [place] [address] [address]t [place] [address] Care Team Providers Care Procurement Internship Name Role Phone Mi Mo MD Primary Care Provider [phone] Encounter Details Date Type Department Care Team ([facility] st Contact Info) Description 03/14/2023 Orders Only [facility] CHC MED & PEDS [address] [place], [place] [phone] Mi Mo MD [address] [place], [place] [phone] Social History Tobacco Use Types Packs/Day Years [...] documented as of this encounter Care Teams Procurement Internship Relationship Specialty Start Date End Date Mi Mo MD [address] [place] [phone] PCP - General Family Medicine 10/31/19 documented as of this encounter
--- OUTSIDE RECORDS SUMMARY | 2024-12-20 14:54 | XMS_ITS | Encounter Summary ---
Author Organization [employer] Address [address] [place] [address] 7t [place] [address] Care Team Providers Care Services Account Manager Name Role Phone Mi Mo MD Primary Care Provider [phone] Reason for Visit * Reason Onset Date Comments Med Refill 2024 Encounter Details Date Type Department Care Team ([facility] st Contact Info) Description 2024 Telephone [facility] MEDICINE [address] [place] [address] Mi Mo MD [address] [place] [address] Med Refill Social History Tobacco Use Types [...] 2:36 PM EDT Medications were sent to [facility] #[id number] on 11/24/23 #90 with 3 refills. * Telephone Encounter - Judith Joy - 2024 2:32 PM EDT TC from pt requesting medication refill. Medications needing refill : hydroCHLOROthiazide (HYDRODiuril) 25 MG tablet levothyroxine (Synthroid, Levoxyl) 50 MCG tablet To be sent to: [id number] - [place] - [address] [facility] documented in this encounter Plan of Treatment Not on file documented as of this encounter Visit Diagnoses Not on filedocumented in this encounter Additional Health Concerns Assessment Noted Time PHQ-9 Depression Total Score: 0 02/10/20 23 11:07 AM EDT documented as of this encounter Care Teams Services Account Manager Relationship Specialty Start Date End Date Mi Mo MD [address] [place] [phone] PCP - General Family Medicine 10/31/19 documented as of this encounter
== END 2024-12-20 13:05 | disposition home or self-care (01) ==
LOC: HO.HOS 12:27
PROVIDERS: PCP Student in an Organized Health Care Education/Training Program; Visit Provider Physician Assistant
DX: Z47.1 Aftercare following joint replacement surgery (principal); Z96.641 Presence of right artificial hip joint
CPT/HCPCS: 99024

== ENCOUNTER → 2024-12-20 12:32 | Outpatient (BNV) | payer MEDICARE, SELFPAY | PROVIDERS: Visit Provider Radiology Diagnostic Radiology | DX: Z96.641 Presence of right artificial hip joint (principal) | CPT/HCPCS: 73502 ==

== ENCOUNTER 2024-12-20 13:45 | Outpatient (REF) | payer MEDICARE, SELFPAY ==
--- NOTE | ~2024-12-20 | XR_ITS ---
EXAMINATION: XR HIP, RIGHT CLINICAL INFORMATION: M25.559 - Pain in unspecified hip COMPARISON: November 08, 2024. TECHNIQUE: Two views of the right hip. FINDINGS: Metallic prosthesis with an acetabular and femoral component well-seated in the osseous structures. No acute cortical disruption or gross malalignment. Status post total left hip arthroplasty procedure no fully included in the [id number]. Heterotopic bone formation lateral to the left acetabulum. Spondylosis L5-S1. Degenerative changes in the symphysis pubis. XR/XR hip RT min 2V IMPRESSION: Total right hip arthroplasty prosthesis intact without dislocation. Electronically signed by: Elvin Castillo MD 12/20/2024 01:13 PM EDT
--- OUTSIDE RECORDS SUMMARY | 2024-12-21 14:06 | XMS_ITS | Encounter Summary ---
Author Organization [employer] Address [address] [facility] 7t [place] [address] Care Team Providers Care Solar Energy Consultant And Designer Name Role Phone Mi Mo MD Primary Care Provider [phone] Reason for Visit * Reason Onset Date Comments Verbal Orders 01/09/2024 Encounter Details Date Type Department Care Team ([facility] Contact Info) Description 01/09/2024 Telephone [facility] MEDICINE [address] [place] [address] Mi Mo MD [address] [place] [address] Verbal Orders Social History Tobacco Use Types [...] - 01/09/2024 3:10 PM EDT Tc from [facility] the at [facility] requesting verbal orders for home PT 2 a week for 4 weeks and the 1 a week for 4 weeks please call Mate at [phone] documented in this encounter Plan of Treatment Not on file documented as of this encounter Visit Diagnoses Not on filedocumented in this encounter Additional Health Concerns Assessment Noted Time PHQ-9 Depression Total Score: 0 02/10/20 23 11:07 AM EDT documented as of this encounter Care Teams Solar Energy Consultant And Designer Relationship Specialty Start Date End Date Mi Mo MD [address] [place] [address] PCP - General Family Medicine 10/31/19 documented as of this encounter
--- OUTSIDE RECORDS SUMMARY | 2024-12-21 14:06 | XMS_ITS | Encounter Summary ---
Author Organization [employer] Address [address] [place] [address] 7t [place] [address] Care Team Providers Care Retail Assistant Manager Name Role Phone Mi Mo MD Primary Care Provider [phone] Reason for Visit * Reason Onset Date Comments verbal order 01/11/2024 Encounter Details Date Type Department Care Team ([facility] Contact Info) Description 01/11/2024 Telephone [facility] CHC MED & PEDS [address] [place], [place] [phone] Mi Mo MD [address] [place] [address] verbal order Social History Tobacco Use Types [...] EDT Please advise[facility], resident medical officer, Cristiane states that they expect this to go for a full episode which is 60 days. Theseorders are to help pt after recent hip replacement. Thank you in advance. * Telephone Encounter - Caitie Rodriguez - 01/11/2024 4:16 PM EDT Tc from [facility] with [facility] requesting verbal order for start of care. Please contact cristiane at [phone] documented in this encounter Plan of Treatment Not on file documented as of this encounter Visit Diagnoses Not on filedocumented in this encounter Additional Health Concerns Assessment Noted Time PHQ-9 Depression Total Score: 0 02/10/20 23 11:07 AM EDT documented as of this encounter Care Teams Retail Assistant Manager Relationship Specialty Start Date End Date Mi Mo MD [address] [place] [address] PCP - General Family Medicine 10/31/19 documented as of this encounter
--- OUTSIDE RECORDS SUMMARY | 2024-12-21 14:06 | XMS_ITS | Clinical Summary ---
Author Organization [employer] Address [address] [place] [address] 7t [place] [address] Care Team Providers Care Staff Development Coordinator Name Role Phone Mi Mo MD Primary Care Provider [phone] Allergies Active Allergy Reactions Criticality Noted Date [...] Provider, Generic External Data 09/27/2024 Orders Only [facility] External Provider, [facility] from Last 3 Months Social History [...] included. Sodium 137 135 - 145 mmol/L [facility] Potassium 4.2 3.3 - 5.1 mmol/L [facility] Chloride 102 96 - 108 mmol/L [facility] Carbon Dioxide 29 22 - 29 mmol/L [facility] Anion Gap 10(L) 12 - 20 [facility] Urea Nitrogen (BUN) 27(H) 9 - 16 mg/dL [facility] Creatinine, Serum 0.83 0.5 - 1.4 mg/dL [facility] Creatinine Clr Calc Pharmacy 45.4 [facility] Comment:Provided height and weight: 160.02 cm,53.9 kg.eGFR (calculated from the MDRD study equation) and eCrCl(calculated from the Cockcroft-Gault equation) are based ondifferent parameters and may not yield comparable results.If eCrCl result is absurd, please check patient'sheight/weight. Estimated Glomerular Filt Rate >60 [facility] Comment:Chronic Kidney Disea se: Estimated GFR < 60 mL/min/1.82q4Wgjpqb Kidney Disease: Estimated GFR < 15 mL/min/1.73m2 Glucose Fasting 101(H) 60 - 99 mg/dL [facility] Comment:A fasting glucose fr om 100-125 mg/dl is considered impaired(pre-diabetes). Calcium 8.6 8.4 - 10.2 mg/dL [facility] 10/06/2024 6:02 AM EST 10/06/2024 6:32 AM EST us Generic External Data Provider LAB BLOOD ORDERAB LES Final Result [facility] [address] [place] [phone] * (ABNORMAL) CBC auto differential (10/06/2024 6:02 AM EST) Only the most recent of4 resultswithin the time period is included. White Blood Count 5.4 4.8 - 10.8 X10*3/uL [facility] Red Blood Count 2.52(L) 4.20 - 5.50 X10*6/uL [facility] Hemoglobin 8.1(L) 12.0 - 16.0 g/dl [facility] Hematocrit 24.2(L) 37.0 - 47.0 % [facility] Mean Corpuscular Volume 96.0 80.0 - 98.0 fL [facility] Mean Corpuscular Hemoglobin 32.1 27.0 - 33.0 pg [facility] Mean Corpuscular HGB Conc 33.5 31.0 - 35.0 g/dl [facility] Red Cell Distribution Width 12.3 11.0 - 16.0 % [facility] Platelet Count 180 160 - 400 X10*3/uL [facility] Mean Platelet Volume 9.8 9.4 - 12.3 fL [facility] Neutrophils Percent Auto 51.8 45 - 73 % [facility] Imm Gran Pct Auto 0.6(H) 0.0 - 0.4 % [facility] Lymphocytes Percent Auto 32.1 20 - 40 % [facility] Monocytes Percent Auto 11.4(H) 2 - 11 % [facility] Eosinophils Percent Auto 3.7 0 - 4 % [facility] Basophils Percent Auto 0.4 0 - 2 % [facility] NRBC Pct Auto 0.0 0.0 - 0.2 /100WBC [facility] Neutrophils Absolute Auto 2.8 2.0 - 8.3 x10*3/uL [facility] Imm Gran Abs Auto 0.03 0.00 - 0.03 X10*3/uL [facility] Lymphocytes Absolute Auto 1.7 1.2 - 4.9 X10*3/uL [facility] Monocytes Absolute Auto 0.6 0.1 - 1.2 X10*3/uL [facility] Eosinophils Absolute Auto 0.2 0.0 - 0.4 X10*3/uL [facility] Basophils Absolute Auto 0.0 0.0 - 0.2 X10*3/uL [facility] NRBC Abs Auto 0.000 0.0 - 0.012 X10*3/uL [facility] 10/06/2024 6:02 AM EST 10/06/2024 6:32 AM EST us Generic External Data Provider LAB BLOOD ORDERAB LES Final Result Performing Organization Address [facility]/ZIP Co de Phone Number [facility] [address] [place] [phone] * High Sensitivity Troponin I (10/04/2024 7:39 AM EST) Only the most recent of2 resultswithin the time period is included. Pathologist [facility] TROPONIN I HIGH SENSITIVITY 7.4 <3.5 - 17.0 ng/L [facility] Comment:The [place] high sens itivity Troponin-I results should beused in conjunction with other diagnostic information suchas ECG, clinical observations and information, and patientsymptoms to aid in the diagnosis of MD. 10/04/2024 7:39 AM EST 10/04/2024 7:50 AM EST So[facility]a External Data Provider LAB BLOOD ORDERAB LES Final Result Performing Organization Address [facility] Co de Phone Number [facility] [address] [place] [phone] * (ABNORMAL) Comprehensive Metabolic Panel (10/03/2024 7:25 PM EST) [facility] Sodium 136 135 - 145 mmol/L [facility] Potassium 4.0 3.3 - 5.1 mmol/L [facility] Chloride 103 96 - 108 mmol/L [facility] Carbon Dioxide 26 22 - 29 mmol/L [facility] Anion Gap 11(L) 12 - 20 [facility] Urea Nitrogen (BUN) 17(H) 9 - 16 mg/dL [facility] Creatinine, Serum 0.78 0.5 - 1.4 mg/dL [facility] Creatinine Clr Calc Pharmacy 48.4 [facility] Comment:Provided height and weight: 160.02 cm,53.9 kg.eGFR (calculated from the MDRD study equation) and eCrCl(calculated from the Cockcroft-Gault equation) are based ondifferent parameters and may not yield comparable results.If eCrCl result is absurd, please check patient'sheight/weight. Estimated Glomerular Filt Rate >60 [facility] Comment:Chronic Kidney Disea se: Estimated GFR < 60 mL/min/1.06i5Biwpng Kidney Disease: Estimated GFR < 15 mL/min/1.73m2 Glucose 181(H) 60 - 115 mg/dL [facility] Calcium 9.1 8.4 - 10.2 mg/dL [facility] Bilirubin, Total 1.2(H) 0.0 - 1.0 mg/dL [facility] Aspartate Amino Transferase 27 5 - 31 U/L [facility] Alanine Aminotransferase 13 0 - 31 U/L [facility] Total Protein 6.5 6.5 - 8.0 g/dL [facility] Albumin Level 3.7 3.5 - 5.0 g/dL [facility] Alkaline Phosphatase 102 39 - 117 U/L [facility] 10/03/2024 7:25 PM EST 10/03/2024 7:32 PM EST us Generic External Data Provider LAB BLOOD ORDERAB LES Final Result [facility] [address] [place] [phone] * XR Pelvis 1-2 Views (10/03/2024 4:20 PM EST) Anatomical Region Laterality Modality Body, Pelvis Radiographic Renuka ging 10/03/2024 4:20 PM EST Narrative 10/03/2024 4:42 PM EST ? [facility] ?[address] ?[place] [address] ?XRay Report ? Signed ? Patient: Farnaz,Yue A ?MR#: [id number] ?? [id number] ? : 1945 ?Acct:[id number] ? Age/Sex: 79 / F ?ADM Date: 01/22/25 ? Loc: HO.S3 ?367-1 ? Attending Dr: Scooby Marina MD ? Ordering Physician: Geno Lima PA-C ?? Date of Service: 10/03/24 ?? Procedure(s): XR pelvis 1-2V ?? Accession Number(s): [id number] ? cc: Geno Lima PA-C; Mi Mo [...] DD/ 1620 ? TD/TT: 10/03/24 1630 ? Integrated Pest Management Technician: MSM ? Procedure Note Anita, Image - 10/03/2024 [place] [address] XRay Report Signed Patient: Yue Osei AMR#: [id number] : 5Acct:[id number] Age/Sex: 79 / FADM Date: 10/03/24 Loc: .S3 367-[address]: Scooby Marina MD Ordering Physician: Geno Lima PA-C Date of Service: 10/03/24 Procedure(s): XR pelvis 1-2V Accession Number(s): [id number] cc: Geno Lima PA-C; Mi Mo MD [...] 10/03/24 1639 DD/ 1620 TD/TT: 10/03/24 1630 Integrated Pest Management Technician: NAHUN us [facility] External Provider IMG XR PROCEDURES Final Result * (ABNORMAL) Hemoglobin and Hematocrit (10/03/2024 9:34 AM EST) Hemoglobin 11.2(L) 12.0 - 16.0 g/dl [facility] Hematocrit 33.5(L) 37.0 - 47.0 % [facility] 10/03/2024 9:34 AM EST 10/03/2024 9:38 AM EST Generic External Data Provider LAB BLOOD ORDERAB LES Final Result Performing Organization Address City/State/[facility] Co de Phone Number [facility] [address] [place] [phone] * Type and screen (09/27/2024 11:35 AM EST) Blood Type BP [facility] Antibody Screen NEGATIVE [facility] 09/27/2024 11:3 5 AM EST 09/27/2024 12:09 PM EST Narrative [facility] - 09/27/2024 2:47 PM EST WITNESSED BY ALONZO:Call Blood Bank (ext. [phone]) to band patient on admission.Type and Screen in effect until 2300 on [id number] expiration changed by NATY on 09/27/24Reason: PAT SPEC Generic External Data Provider LAB BLOOD BANK TE ST ORDERABLES Final Result [facility] [address] [place] [address] [phone] * XR Hip right with Pelvis 1 view (09/27/2024 9:48 AM EST) Anatomical Region Laterality Modality Lower Extremities, Hip Bilateral Radiograp hic Imaging 09/27/2024 9:48 AM EST Narrative 09/27/2024 2:39 PM EST ? [facility] ?[address] ?[place] [address] ?XRay Report ? Signed ? Patient: Yue Osei A ?MR#: [id number] ?? [id number] ? : 1945 ?Acct:[id number] ? Age/Sex: 79 / F ?ADM Date: 09/27/24 ? Loc: HO.LAB ? Attending Dr: Geno Lima PA-C ? Ordering Physician: Geno Lima PA-C ?? Date of Service: 09/27/24 ?? Procedure(s): XR hip RT w PEL 1V ?? Accession Number(s): [id number] ? cc: Geno Lima PA-C; Mi Mo [...] DD/ 0948 ? TD/TT: 09/27/24 0950 ? Integrated Pest Management Technician: ? Procedure Note Anita, Image - 09/27/[address] [address] XRay Report Signed Patient: Yue Osei AMR#: [id number] : 5Acct:[id number] Age/Sex: 79 / FADM Date: 09/27/24 Loc: HO.LAB Attending Dr: Geno Lima PA-C Ordering Physician: Geno Lima PA-C Date of Service: 09/27/24 Procedure(s): XR hip RT w PEL 1V Accession Number(s): [id number] cc: Geno Lima PA-C; Mi Mo MD [...] 09/27/24 1437 DD/ 0948 TD/TT: 09/27/24 0950 Integrated Pest Management Technician: [facility] External Provider IMG XR PROCEDURES Final Result * (ABNORMAL) Lipid Panel, Standard (09/17/2024 11:03 AM EST) Triglycerides 100 <150 mg/dL [facility] Comment:Desirable Triglyceri de: less than 150 mg/dLBorderline High Triglyceride 150-199 mg/dLHigh Triglyceride: 200-499 mg/dLVery High Triglyceride: greater than or equal to 5OO mg/dL Cholesterol 199 <200 mg/dL [facility] Comment:Desirable Cholestero l: less than 200 mg/dLBorderline High Cholesterol: 200-239 mg/dLHigh Cholesterol: greater than 239 mg/dL LDL Cholesterol Calculated 115(H) <100 mg/dL [facility] Comment:Desirable LDL: less than 100 mg/dLNear Optimal/Above Optimal LDL: 110- 129 mg/dLBorderline High LDL: 130-159 mg/dLHigh LDL: 160-189 mg/dLVery High LDL: greater than or equal to 190 mg/dL HDL Cholesterol 64 >40 mg/dL [facility] Comment:Desirable HDL: great er than 40 mg/dL Note: This HDL assay may give artificially low results in patients with liver disease. Blood Venous blood specimen / Unknown 09/17/2024 11:03 AM EST 09/17/2024 2:20 PM EST us Mi Mo MD LAB BLOOD ORDERABLES Final Resul t [facility] [address] [place] [phone] [phone] from Last 3 Months or Most Recently Relevant to Health Maintenance Insurance [facility] [employer] HMO * Guarantor: Yue Osei Account Type Relation to Patient Date of Phone Billing Address Personal/Family Self [address] Care Teams Staff Development Coordinator Relationship Specialty Start Date End Date Mi Mo MD [address] [place] [phone] PCP - General Family Medicine 10/31/19
--- OUTSIDE RECORDS SUMMARY | 2024-12-21 14:06 | XMS_ITS | Encounter Summary ---
Author Organization [employer] Address [address] [place] [address] 7t [place] [address] Care Team Providers Care Bottom Hoop Driver Name Role Phone Mi Mo MD Primary Care Provider [phone] Reason for Visit * Reason Onset Date Comments Med Refill 2024 Encounter Details Date Type Department Care Team ([facility] st Contact Info) Description 2024 Telephone [facility] [address] [place] [address] Mi Mo MD [address] [place] [address] Med Refill Social History Tobacco Use Types [...] 2:36 PM EDT Medications were sent to [facility] #[id number] on 11/24/23 #90 with 3 refills. * Telephone Encounter - Judith Joy - 2024 2:32 PM EDT TC from pt requesting medication refill. Medications needing refill : hydroCHLOROthiazide (HYDRODiuril) 25 MG tablet levothyroxine (Synthroid, Levoxyl) 50 MCG tablet To be sent to: [facility][id number] - [place] - [address] [facility] [place] documented in this encounter Plan of Treatment Not on file documented as of this encounter Visit Diagnoses Not on filedocumented in this encounter Additional Health Concerns Assessment Noted Time PHQ-9 Depression Total Score: 0 02/10/20 23 11:07 AM EDT documented as of this encounter Care Teams Bottom Hoop Driver Relationship Specialty Start Date End Date Mi Mo MD [address] [place] [phone] PCP - General Family Medicine 10/31/19 documented as of this encounter
--- OUTSIDE RECORDS SUMMARY | 2024-12-21 14:06 | XMS_ITS | Encounter Summary ---
Author Organization [employer] Address [address] [place] [address] 7t [place] [address] Care Team Providers Care Lead Network Architect Name Role Phone Mi Mo MD Primary Care Provider [phone] Reason for Visit * Reason Onset Date Comments Pre op 10/27/2023 Encounter Details Date Type Department Care Team ([facility] Contact Info) Description 10/27/2023 Telephone [facility] MED & PEDS [address] [place], [place] [phone] Mi Mo MD [address] [place] [address] Pre op Social History Tobacco Use Types [...] PM EST Returned call to Gabriela at [facility] regarding message below. Confirmed information below [...] yes Surgeon's name: Dr gandara Facility name: [facility] Surgeon's office number: [phone] Surgeon's office fax number: [phone] Contact name (person you spoke with): Gabriela from [facility] Last office note from surgeon requested: Yes documented in this encounter Plan of Treatment Not on file documented as of this encounter Visit Diagnoses Not on filedocumented in this encounter Additional Health Concerns Assessment Noted Time PHQ-9 Depression Total Score: 0 02/10/20 23 11:07 AM EDT documented as of this encounter Care Teams Lead Network Architect Relationship Specialty Start Date End Date Mi Mo MD [address] [place] [address] PCP - General Family Medicine 10/31/19 documented as of this encounter
--- OUTSIDE RECORDS SUMMARY | 2024-12-21 14:07 | XMS_ITS | Encounter Summary ---
Author Organization [employer] Address [address] [facility] [place] [address] Care Team Providers Care Cow Trimmer Name Role Phone Mi Mo MD Primary Care Provider [phone] Encounter Details Date Type Department Care Team (Late st Contact Info) Description 09/18/2024 Orders Only [facility] PEDS [address] [place] [address] Provider, MD [place] Social History Tobacco Use [...] documented as of this encounter Care Teams Cow Trimmer Relationship Specialty Start Date End Date Mi Mo MD [address] [place] [phone] PCP - General Family Medicine 10/31/19 documented as of this encounter
--- OUTSIDE RECORDS SUMMARY | 2024-12-21 14:07 | XMS_ITS | Encounter Summary ---
Author Organization [employer] Address [address] [place] [address] 7t [place] [address] Care Team Providers Care Millwright Apprentice Name Role Phone Mi Mo MD Primary Care Provider [phone] Encounter Details Date Type Department Care Team ([facility] st Contact Info) Description 03/14/2023 Orders Only [facility] MED & PEDS [address] [place], [place] [phone] Mi Mo MD [address] [place], [place] [phone] Social History Tobacco Use Types Packs/Day Years [...] documented as of this encounter Care Teams Millwright Apprentice Relationship Specialty Start Date End Date Mi Mo MD [address] [place] [address] PCP - General Family Medicine 10/31/19 documented as of this encounter
== END 2024-12-20 13:46 | disposition home or self-care (01) ==
LOC: HO.HOSX 13:45
PROVIDERS: Visit Provider Physician Assistant
DX: M25.551 Pain in right hip (principal); Z96.641 Presence of right artificial hip joint
CPT/HCPCS: 73502; 99212

== ENCOUNTER 2025-02-19 09:00 | Outpatient (REF) | payer MEDICARE, SELFPAY ==
--- NOTE | ~2025-02-19 | XR_ITS ---
EXAMINATION: XR PELVIS CLINICAL INFORMATION: M25.559 - Pain in unspecified hip COMPARISON: November 08, 2024 TECHNIQUE: AP view of the pelvis. FINDINGS: Moderate to severe degenerative disc disease is noted in the lower lumbar spine. The SI joints demonstrate left greater than right narrowing and sclerosis, consistent with degenerative change. Vascular calcifications are visible in the common iliac arteries. There is low bone mineral density. Extensive joint is degenerated with sclerosis and osteophytes. Total hip arthroplasty is present on the right. The acetabular cup is secured with 2 screws. There is no shift in the acetabular cup orientation. There is no subsidence of the femoral stem. There is no abnormal lucency at bone metal interfaces. Total hip arthroplasty is present on the left. Cementless prosthesis shows no interval change in positioning. There is moderate heterotopic ossification present lateral to the acetabular cup and prosthetic femoral neck. There is no abnormal lucency at bone metal interfaces. XR/XR pelvis 1-2V IMPRESSION: Stable bilateral total hip replacement. 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 Moderate to severe degenerative changes the lower lumbar spine and left greater than right SI joints. Diffuse low bone mineral density. Electronically signed by: Boogie Goel MD 02/19/2025 06:32 PM EDT
--- OUTSIDE RECORDS SUMMARY | 2025-02-20 09:27 | XMS_ITS | Encounter Summary ---
Author Organization [employer] Address [address] [place] [address] Care Team Providers Care Consulting Analyst Name Role Phone Mi Mo MD Primary Care Provider [phone] Reason for Visit * Reason Onset Date Comments Verbal Orders 01/09/2024 Encounter Details Date Type Department Care Team ([facility] st Contact Info) Description 01/09/2024 Telephone [facility] [address] [place] [address] Mi Mo MD [address] [place] [address] Verbal Orders Social History Tobacco Use Types [...] - 01/09/2024 3:10 PM EDT Tc from [facility] the at [facility] requesting verbal orders for home PT 2 a week for 4 weeks and the 1 a week for 4 weeks please call Mate at [phone] documented in this encounter Plan of Treatment Not on file documented as of this encounter Visit Diagnoses Not on filedocumented in this encounter Additional Health Concerns Assessment Noted Time PHQ-9 Depression Total Score: 0 02/10/20 23 11:07 AM EDT documented as of this encounter Care Teams Consulting Analyst Relationship Specialty Start Date End Date Mi Mo MD [address] [place] [id number] PCP - General Family Medicine 10/31/19 documented as of this encounter
== END 2025-02-19 09:01 | disposition home or self-care (01) ==
LOC: HO.HOSX 09:00
PROVIDERS: Visit Provider Physician Assistant
DX: Z47.1 Aftercare following joint replacement surgery (principal); Z96.641 Presence of right artificial hip joint
CPT/HCPCS: 72170; 99212

== ENCOUNTER → 2025-02-19 12:42 | Outpatient (BNV) | payer MEDICARE, SELFPAY | PROVIDERS: Visit Provider Radiology Diagnostic Radiology | DX: M61.552 Other ossification of muscle, left thigh (principal); M51.361 Other intervertebral disc degeneration, lumbar region with lower extremity pain only; Z96.643 Presence of artificial hip joint, bilateral | CPT/HCPCS: 72170 ==

== ENCOUNTER 2025-02-19 13:17 | Outpatient (AMB) | payer MEDICARE, SELFPAY ==
--- NOTE | 2025-02-19 13:46 | MHC.OFFVIS ---
Intake Visit Reasons: OV-R MAXIMUS w/NE 10/03/24-2 month F/U Intake Note: Yue is a 79 year old female who presents today for a follow up appointment of her Right total hip arthroplasty 10/03/24 NE. Patient reports she is doing well. She wants to know why she is stronger in her right hip than the left. Allergies acetaminophen [From Percocet] Allergy (Verified 02/19/25 13:46) Nausea oxycodone [From Percocet] Allergy (Verified 02/19/25 13:46) Nausea regadenoson Adverse Reaction (Intermediate, Verified 02/19/25 13:46) presyncope HPI HPI OV-R MAXIMUS w/NE 10/03/24-2 month F/U: Details: Ms. Osei is a 79-year-old female who presents to the office today status post right total hip arthroplasty performed by Dr. Marina on 10/03/2024. Overall the patient is doing very well. She continues to use her walker to assist with ambulation. She denies any pain or discomfort. Overall she is doing very well and is happy with her progress. [facility] Medical History (Updated 10/15/24 @ 00:00 by Lloyd Elaine) Arthritis GERD (gastroesophageal reflux disease) Asthma Thyroid disease HTN (hypertension) Surgical History H/O colonoscopy S/P total left hip arthroplasty (12/21/23) History of surgery on wrist History of ankle surgery Social History Household Members: Children Housing: House Are you a primary senior resident care director to a significant other at home: No Do you presently have visiting nurse or other home services: No Alcohol intake: current Alcohol intake frequency: holidays/special occasions only Alcohol type: hard liquor Patient Tobacco Use Status: Never used Tobacco service: No Review of Systems Const All systems reviewed & are unremarkable except as noted in HPI and below Physical Exam Extrem Other: Right lower extremity: Able to perform straight leg raise. Good internal external rotation. Ambulating with the use of a walker well. NVI. Assessment & Plan Assessment & Plan (1) Status post total hip replacement, right: Code(s): Z96.641 - Presence of right artificial hip joint Category: Surgical Plan Ms. Osei is a 79-year-old female who presents to the office today status post right total hip arthroplasty performed by Dr. Marina on 10/03/2024. Overall the patient is doing very well. She continues to use her walker to assist with ambulation. She denies any pain or discomfort. Overall she is doing very well and is happy with her progress. Overall the patient is doing very well in the office today. She has no complaints at this time. She will follow up at the 1 year postoperative apolinar, sooner if needed. X-rays of the pelvis which were obtained while in the office today and were reviewed by me, Geno Lima PA-C, revealed intact right hip total arthroplasty with satisfactory alignment. No acute dislocation or periprosthetic fracture. Orders: Orders XR pelvis 1-2V Today M25.559 - Pain in unspecified hip Coding Level of Care Code Est Pt Level 3 (74576) Diagnoses Status post total hip replacement, right Z96.641
--- OUTSIDE RECORDS SUMMARY | 2025-02-19 15:43 | XMS_ITS | Encounter Summary ---
Author Organization [employer] Address [address] [facility] [address] [place] [address] Care Team Providers Care Clothing And Textiles Teacher Name Role Phone Mi Mo MD Primary Care Provider [phone] Reason for Visit * Reason Onset Date Comments Verbal Orders 01/09/2024 Encounter Details Date Type Department Care Team ([facility] st Contact Info) Description 01/09/2024 Telephone [facility] [address] [place] [address] Mi Mo MD [address] [place] [address] Verbal Orders Social History Tobacco Use Types [...] - 01/09/2024 3:10 PM EDT Tc from [facility] the at [facility] requesting verbal orders for home PT 2 a week for 4 weeks and the 1 a week for 4 weeks please call Mate at [phone] documented in this encounter Plan of Treatment Not on file documented as of this encounter Visit Diagnoses Not on filedocumented in this encounter Additional Health Concerns Assessment Noted Time PHQ-9 Depression Total Score: 0 02/10/20 23 11:07 AM EDT documented as of this encounter Care Teams Clothing And Textiles Teacher Relationship Specialty Start Date End Date Mi Mo MD [address] [place] [phone] PCP - General Family Medicine 10/31/19 documented as of this encounter
== END 2025-02-19 14:08 | disposition home or self-care (01) ==
LOC: HO.HOS 13:17
PROVIDERS: Visit Provider Physician Assistant
DX: Z47.1 Aftercare following joint replacement surgery (principal); Z96.641 Presence of right artificial hip joint
CPT/HCPCS: 99213

== ENCOUNTER 2025-08-22 08:23 | Outpatient (REF) | payer MEDICARE, SELFPAY ==
--- NOTE | ~2025-08-22 | XR_ITS ---
EXAMINATION: XR HIP 2 OR MORE VIEWS RIGHT HISTORY: M25.559 - Pain in unspecified hip COMPARISON: Comparison is made with the prior examination dated 12/20/2024. FINDINGS: A single AP view of the pelvis and 2 views of the right hip are submitted. The patient is again noted to be status post right total hip arthroplasty. The orthopedic elements are in anatomic alignment. There is no radiographic evidence of loosening. There is no fracture or dislocation. The patient is also status post left total hip arthroplasty. There is degenerative disc disease of the spine. The soft tissues are unremarkable. XR/XR hip RT min 2V IMPRESSION: Status post right total hip arthroplasty. Electronically signed by: Tj Moser MD 08/22/2025 11:26 AM [facility] HAYES
== END 2025-08-22 08:24 | disposition home or self-care (01) ==
LOC: HO.HOSX 08:23
PROVIDERS: Visit Provider Physician Assistant
DX: M25.551 Pain in right hip (principal); M25.552 Pain in left hip; Z96.641 Presence of right artificial hip joint; Z96.642 Presence of left artificial hip joint
CPT/HCPCS: 73502; 99212

== ENCOUNTER 2025-08-22 11:10 | Outpatient (AMB) | payer MEDICARE, SELFPAY ==
--- NOTE | 2025-08-22 11:21 | A.OFFVIS_ITS ---
Intake Visit Reasons: OV - Right MAXIMUS 10/03/24 NE Intake Note: Yue is a 80 year old female who presents today for a follow up appointment of her Right total hip arthroplasty 10/03/24 NE. Patient reports she is doing well. She mentions that she has noticed that her right side is feeling weaker. Allergies acetaminophen (From Percocet) Allergy (Verified 08/22/25 11:25) Nausea oxycodone (From Percocet) Allergy (Verified 08/22/25 11:25) Nausea regadenoson Adverse Reaction (Intermediate, Verified 08/22/25 11:25) presyncope HPI Comments Details: The patient is an 80-year-old female presenting for a routine follow-up visit approximately one year after a right total hip arthroplasty performed on October 03, [address] Marina. She reports that she is doing very well overall and is pain-free. She uses a walker to assist with ambulation. She notes that her left hip feels weak, which is the side she believes was worse initially. She also reports issues with balance, requiring her to hold onto things for support at times, such as in the kitchen. [facility] Medical History (Updated 10/15/24 @ 00:00 by Lloyd Elaine) Arthritis GERD (gastroesophageal reflux disease) Asthma Thyroid disease HTN (hypertension) Surgical History H/O colonoscopy S/P total left hip arthroplasty (12/21/23) History of surgery on wrist History of ankle surgery Social History Household Members: Children Housing: House Are you a primary pharmacy customer care specialist to a significant other at home: No Do you presently have visiting nurse or other home services: No Alcohol intake: current Alcohol intake frequency: holidays/special occasions only Alcohol type: hard liquor Patient Tobacco Use Status: Never used Tobacco service: No Review of Systems Narrative Review of Systems - Musculoskeletal: Reports weakness in the left hip. - Denies hip pain. - Neurological: Reports impaired balance. Const All systems reviewed & are unremarkable except as noted in HPI and below Physical Exam Exam Exam: Physical Exam - Musculoskeletal: - Right Hip: Demonstrates excellent range of motion with straight leg raise and adduction. - Strength is 5/5 with resisted external rotation, internal rotation, and flexion. - Left Hip: Strength shows comparative weakness on resisted flexion. - Strength is adequate with resisted external and internal rotation. Extrem Other: Right/Left hip: Full hip ROM in all planes. No tenderness to palpation over the greater trochanteric bursa. 5/5 strength with resisted hip flexion, knee extension, abduction, and abduction. Able to perform straight leg raise. NVI. Right/Left hip: Full hip ROM in all planes. No tenderness to palpation over the greater trochanteric bursa. 4/5 strength with resisted hip flexion, knee extension, abduction, and abduction. Able to perform straight leg raise. NVI. Assessment & Plan Assessment & Plan (1) Status post total hip replacement, right: Code(s): Z96.641 - Presence of right artificial hip joint Category: Medical (2) S/P total left hip arthroplasty: Onset Date: 12/21/23 Comment: NE Code(s): Z96.642 - Presence of left artificial hip joint Category: Medical Plan 1. Status Post Right Total Hip Arthroplasty The patient is doing very status post right total hip arthroplasty performed on 10/03/[address] Marina. She has no pain and the physical exam shows excellent motion and strength. A yearly follow-up is recommended, and the patient was advised to call if any issues arise in the interim. 2. Left Hip Weakness And Impaired Balance status post left total hip arthroplasty performed on 12/21/[address] Marina. The patient reports subjective weakness in the left hip and balance difficulties, which is confirmed on physical exam showing comparative weakness on the left side. This is likely secondary to muscle deconditioning. A referral will be submitted for home physical therapy with the [facility] to focus on gait training, balance training, and overall muscle strengthening. Consent Patient was informed and verbally consented to the use of an ambient scribe for clinic note documentation during this visit. X-rays of the right hip and pelvis which were obtained while in the office today and were reviewed by me, Geno Lima PA-C, revealed intact bilateral hip total arthroplasties. Orders: Orders XR hip RT min 2V Today M25.559 - Pain in unspecified hip Referrals [facility] Referral Z96.641 - Presence of right artificial hip joint, Z96.642 - Presence of left artificial hip joint Coding Level of Care Code Est Pt Level 3 (72707) Add On Problem Visit Only Diagnoses Status post total hip replacement, right Z96.641 S/P total left hip arthroplasty Z96.642
== END 2025-08-22 12:01 | disposition home or self-care (01) ==
PROVIDERS: Visit Provider Physician Assistant
DX: Z47.89 Encounter for other orthopedic aftercare (principal); Z96.643 Presence of artificial hip joint, bilateral
CPT/HCPCS: 99213; G2211

== ENCOUNTER → 2025-08-22 11:13 | Outpatient (BNV) | payer MEDICARE, SELFPAY | PROVIDERS: Visit Provider Radiology Diagnostic Radiology | DX: M25.551 Pain in right hip (principal); Z96.641 Presence of right artificial hip joint | CPT/HCPCS: 73502 ==